=== PATIENT | male | born 1955 | race Caucasian/White ===

== ENCOUNTER 2016-10-17 08:23 | Outpatient (CLI) | payer OTHER | END 2016-10-17 08:24 | disposition home or self-care (01) | DX: Z12.5 Encounter for screening for malignant neoplasm of prostate (principal); I10 Essential (primary) hypertension; E11.9 Type 2 diabetes mellitus without complications; E78.5 Hyperlipidemia, unspecified; E66.9 Obesity, unspecified; R60.9 Edema, unspecified; E88.81 Metabolic syndrome and other insulin resistance ==

== ENCOUNTER 2017-06-22 09:43 | Outpatient (CLI) | payer OTHER ==
[2017-06-22 12:26] LABS: ALBUMIN/GLOBULIN RATIO 1.3 (1.0-2.2); BILIRUBIN,TOTAL 0.8 mg/dL (0.2-1.0); BUN - BLOOD UREA NITROGEN 16 mg/dL (6-20); CARBON DIOXIDE - CO2 27 mmol/L (21-32); CHLORIDE 104 mmol/L (101-111); CHOLESTEROL 131 mg/dL; GFR - MDRD 76 (>89); GLUCOSE 103 mg/dL (70-100); HDL CHOLESTEROL 43 mg/dL; LDL/HDL RATIO 1.5 (<3.6); POTASSIUM 3.7 mmol/L (3.5-5.0); SODIUM 141 mmol/L (135-145); TOTAL PROTEIN 7.4 g/dL (6.7-8.2); TRIGLYCERIDES 118 mg/dL; VLDL CHOLESTEROL 24 mg/dL
[2017-06-22 12:58] LABS: HEMOGLOBIN A1C 0.6 g/dL
== END 2017-06-22 09:44 | disposition home or self-care (01) ==
LOC: LAB.R 09:43
PROVIDERS: ATTEND Family Medicine
DX: Z53.9 Procedure and treatment not carried out, unspecified reason (principal)
CPT/HCPCS: 36415; 80053; 80061; 82043; 83036; 84443

== ENCOUNTER 2017-06-22 11:21 | Outpatient (CLI) | payer OTHER | END 2017-06-22 11:22 | disposition home or self-care (01) | LOC: LAB 11:21 | PROVIDERS: ATTEND Family Medicine | DX: E66.9 Obesity, unspecified (principal); R60.9 Edema, unspecified; E78.5 Hyperlipidemia, unspecified; I10 Essential (primary) hypertension; E11.9 Type 2 diabetes mellitus without complications | CPT/HCPCS: 36415; 80053; 80061; 82043; 83036; 84443 ==

== ENCOUNTER 2018-02-03 08:00 | Outpatient (CLI) | END 2018-02-03 08:01 | disposition home or self-care (01) ==

== ENCOUNTER 2018-03-15 12:57 | Outpatient (CLI) | payer OTHER ==
[2018-03-15 13:15] LABS: BASOPHILS % (AUTO) 0.5 %; EOSINOPHILS # (AUTO) 0.1 10^3/uL (0.0-0.7); EOSINOPHILS % (AUTO) 2.7 %; HGB - HEMOGLOBIN 13.7 g/dL (14.0-18.0); LYMPHOCYTES # (AUTO) 2.1 10^3/uL (1.5-3.5); MEAN CORPUSCULAR HEMOGLOBIN 28.4 pg (27.0-31.0); MEAN CORPUSCULAR VOLUME 86.1 fL (80.0-94.0); MONOCYTES # (AUTO) 0.5 10^3/uL (0.0-1.0); MONOCYTES % (AUTO) 10.1 %; NEUTROPHILS # (AUTO) 2.5 10^3/uL (1.5-6.6); NEUTROPHILS % (AUTO) 47.7 %; PLT - PLATELET COUNT 177 10^3/uL (130-450); RED BLOOD COUNT 4.81 10^6/uL (4.70-6.10); WHITE BLOOD COUNT 5.3 x10^3/uL (4.8-10.8)
[2018-03-15 13:29] LABS: HB2 TOTAL 15.2 g/dL; HEMOGLOBIN A1C 0.66 g/dL; HEMOGLOBIN A1C % 6.1 % (4.6-6.2)
[2018-03-15 14:55] LABS: ALBUMIN 3.9 g/dL (3.2-5.5); ALBUMIN/GLOBULIN RATIO 1.2 (1.0-2.2); ALKALINE PHOSPHATASE 68 IU/L (42-121); ALT ALANINE AMINOTRANSFERASE 46 IU/L (10-60); AST ASPARTATE AMINOTRANSFERASE 41 IU/L (10-42); BUN - BLOOD UREA NITROGEN 15 mg/dL (6-20); CARBON DIOXIDE - CO2 31 mmol/L (21-32); CHLORIDE 100 mmol/L (101-111); CHOL/HDL RATIO 3.4 (<5.0); CHOLESTEROL 114 mg/dL; CREATININE 0.9 mg/dL (0.6-1.2); GFR - MDRD 86 (>89); GLUCOSE 109 mg/dL (70-100); HDL CHOLESTEROL 34 mg/dL; LDL CHOLESTEROL,CALCULATED 53 mg/dL; LDL/HDL RATIO 1.6 (<3.6); SODIUM 139 mmol/L (135-145); TOTAL PROTEIN 7.2 g/dL (6.7-8.2); VLDL CHOLESTEROL 27 mg/dL
== END 2018-03-15 12:58 | disposition home or self-care (01) ==
LOC: LAB 12:57
PROVIDERS: ATTEND Family Medicine
DX: I87.2 Venous insufficiency (chronic) (peripheral) (principal); R60.9 Edema, unspecified; I10 Essential (primary) hypertension
CPT/HCPCS: 36415; 80053; 80061; 82043; 83036; 83721; 84443; 85025

== ENCOUNTER 2018-03-29 13:54 | Outpatient (CLI) | payer OTHER ==
[2018-03-29 14:18] LABS: CALCIUM 9.2 mg/dL (8.5-10.3)
== END 2018-03-29 13:55 | disposition home or self-care (01) ==
LOC: LAB 13:54
PROVIDERS: ATTEND Family Medicine
DX: E87.6 Hypokalemia (principal)
CPT/HCPCS: 36415; 80048

== ENCOUNTER 2019-01-08 08:00 | Outpatient (CLI) | payer OTHER ==
[2019-01-08 12:53] LABS: BASOPHILS % (AUTO) 0.1 %; EOSINOPHILS # (AUTO) 0.2 10^3/uL (0.0-0.7); HGB - HEMOGLOBIN 13.2 g/dL (14.0-18.0); LYMPHOCYTES % (AUTO) 37.4 %; MEAN CORPUSCULAR HEMOGLOBIN 28.2 pg (27.0-31.0); MEAN CORPUSCULAR HGB CONC 32.5 g/dL (32.0-36.0); MEAN CORPUSCULAR VOLUME 86.9 fL (80.0-94.0); MONOCYTES # (AUTO) 0.6 10^3/uL (0.0-1.0); MONOCYTES % (AUTO) 10.2 %; NEUTROPHILS # (AUTO) 2.7 10^3/uL (1.5-6.6); NEUTROPHILS % (AUTO) 49.3 %; PLT - PLATELET COUNT 194 10^3/uL (130-450); RED BLOOD COUNT 4.67 10^6/uL (4.70-6.10); RED CELL DISTRIBUTION WIDTH 14.4 % (12.0-15.0); WHITE BLOOD COUNT 5.4 x10^3/uL (4.8-10.8)
[2019-01-08 13:07] LABS: HB2 TOTAL 14.2 g/dL; HEMOGLOBIN A1C 0.71 g/dL; HEMOGLOBIN A1C % 6.7 % (4.6-6.2)
[2019-01-08 13:09] LABS: ALBUMIN 3.9 g/dL (3.2-5.5); ALBUMIN/GLOBULIN RATIO 1.2 (1.0-2.2); BILIRUBIN,TOTAL 0.6 mg/dL (0.2-1.0); CALCIUM 9.2 mg/dL (8.5-10.3); TOTAL PROTEIN 7.2 g/dL (6.7-8.2)
== END 2019-01-08 23:59 | disposition home or self-care (01) ==
LOC: LAB.WCP 08:00
PROVIDERS: ATTEND Family Medicine
DX: I10 Essential (primary) hypertension (principal); E11.9 Type 2 diabetes mellitus without complications
CPT/HCPCS: 36415; 80053; 83036; 85025

== ENCOUNTER 2019-01-08 16:59 | Outpatient (CLI) | payer OTHER ==
--- NOTE | 2019-01-09 10:26 | XRAY Report ---
Reason: CHEST WALL PAIN Procedure Date: 01/08/2019 Accession Number: [id number] / [id number] Procedure: XR - Chest 2 View X-Ray CPT Code: 72024 FULL RESULT: EXAM: CHEST RADIOGRAPHY EXAM DATE: 01/08/2019 05:38 PM. CLINICAL HISTORY: CHEST WALL PAIN. COMPARISON: XR CHEST PA AND LAT 05/29/2009 3:29 PM. TECHNIQUE: 2 views. FINDINGS: Lungs/Pleura: No focal opacities evident. No pleural effusion. No pneumothorax. Normal volumes. Mediastinum: Heart and mediastinal contours are unremarkable. Other: None. IMPRESSION: No focal consolidation. RADIA
== END 2019-01-08 17:00 | disposition home or self-care (01) ==
LOC: DI 16:59
PROVIDERS: ATTEND Family Medicine
DX: R07.89 Other chest pain (principal); I10 Essential (primary) hypertension; E11.9 Type 2 diabetes mellitus without complications
CPT/HCPCS: 36415; 71046; 80053; 83036; 85025

== ENCOUNTER 2019-02-25 13:46 | Outpatient (CLI) | payer OTHER ==
--- NOTE | 2019-02-25 14:30 | Mammography Report ---
Reason: BILAT BREAST TENDERNESS Procedure Date: 02/25/2019 Accession Number: [id number] / [id number] Procedure: SHYAM - Diagnostic Dig Bilat CPT Code: FULL RESULT: EXAM: Diagnostic Dig Bilat DATE: 02/25/2019 2:25 PM CLINICAL HISTORY: Bilateral breast tenderness. Recent initiation and subsequent discontinuation of spironolactone therapy. Patient symptoms have been improving since discontinuation. TECHNIQUE: (B) - Bilateral CC and MLO views were obtained. A left laterally exaggerated CC views obtained. COMPARISON: 04/17/2013. PARENCHYMAL PATTERN: (A) - The breast(s) demonstrate(s) scattered fibroglandular densities. FINDINGS: Compared to 2012, there is increased bilateral normal-appearing breast tissue. There are no suspicious masses, calcifications, or areas of distortion. IMPRESSION: Benign findings. BI-RADS category 2. RECOMMENDATION: (CLIN) - Clinical follow-up for symptoms is recommended. BI-RADS CATEGORY: (2) - Benign Findings. STANDARD QUALIFYING STATEMENTS: 1. This examination was not reviewed with the aid of Computer-Aided Detection (CAD). 2. A negative or benign imaging report should not preclude biopsy if clinically suspicious findings are present. 3. Dense breasts may obscure an underlying neoplasm. 4. This examination was reviewed without the aid of 3D breast imaging (tomosynthesis).
== END 2019-02-25 13:47 | disposition home or self-care (01) ==
LOC: DI 13:46
PROVIDERS: ATTEND Family Medicine
DX: N64.4 Mastodynia (principal)
CPT/HCPCS: 77066

== ENCOUNTER 2019-03-17 08:00 | Outpatient (CLI) | payer OTHER ==
[2019-03-17 13:27] LABS: ALBUMIN 3.7 g/dL (3.2-5.5); ALBUMIN/GLOBULIN RATIO 1.1 (1.0-2.2); BILIRUBIN,TOTAL 0.5 mg/dL (0.2-1.0); CREATININE 0.9 mg/dL (0.6-1.2); TOTAL PROTEIN 7.2 g/dL (6.7-8.2)
== END 2019-03-17 23:59 | disposition home or self-care (01) ==
LOC: LAB.WCP 08:00
PROVIDERS: ATTEND Family Medicine
DX: E11.9 Type 2 diabetes mellitus without complications (principal); E87.6 Hypokalemia; R06.09 Other forms of dyspnea; I10 Essential (primary) hypertension
CPT/HCPCS: 36415; 80053; 83880; 84443

== ENCOUNTER 2020-08-04 10:38 | Outpatient (CLI) | payer OTHER ==
[2020-08-04 14:26] LABS: BASOPHILS % (AUTO) 0.6 %; EOSINOPHILS # (AUTO) 0.2 10^3/uL (0.0-0.7); EOSINOPHILS % (AUTO) 3.2 %; HCT - HEMATOCRIT 42.6 % (42.0-52.0); LYMPHOCYTES # (AUTO) 2.3 10^3/uL (1.5-3.5); LYMPHOCYTES % (AUTO) 37.5 %; MEAN CORPUSCULAR HEMOGLOBIN 26.9 pg (27.0-31.0); MEAN CORPUSCULAR HGB CONC 30.5 g/dL (32.0-36.0); MEAN PLATELET VOLUME 11.6 fL (7.4-11.4); MONOCYTES # (AUTO) 0.8 10^3/uL (0.0-1.0); MONOCYTES % (AUTO) 12.1 %; NEUTROPHILS # (AUTO) 2.9 10^3/uL (1.5-6.6); NEUTROPHILS % (AUTO) 46.4 %; PLT - PLATELET COUNT 213 10^3/uL (130-450); RED BLOOD COUNT 4.84 10^6/uL (4.70-6.10); WHITE BLOOD COUNT 6.2 x10^3/uL (4.8-10.8)
[2020-08-04 14:39] LABS: ALBUMIN/GLOBULIN RATIO 1.1 (1.0-2.2); ALKALINE PHOSPHATASE 59 IU/L (42-121); ALT ALANINE AMINOTRANSFERASE 25 IU/L (10-60); AST ASPARTATE AMINOTRANSFERASE 28 IU/L (10-42); BILIRUBIN,TOTAL 0.7 mg/dL (0.2-1.0); BUN - BLOOD UREA NITROGEN 19 mg/dL (6-20); CALCIUM 8.9 mg/dL (8.5-10.3); CARBON DIOXIDE - CO2 30 mmol/L (21-32); CHLORIDE 97 mmol/L (101-111); CHOLESTEROL 112 mg/dL; CREATININE 0.9 mg/dL (0.6-1.2); GFR - MDRD 85 (>89); GLUCOSE 88 mg/dL (70-100); HDL CHOLESTEROL 37 mg/dL; LDL CHOLESTEROL,CALCULATED 55 mg/dL; LDL/HDL RATIO 1.5 (<3.6); POTASSIUM 2.9 mmol/L (3.5-5.0); SODIUM 137 mmol/L (135-145); TOTAL PROTEIN 7.7 g/dL (6.7-8.2); TRIGLYCERIDES 98 mg/dL; VLDL CHOLESTEROL 20 mg/dL
[2020-08-04 14:52] LABS: CREATININE,URINE 32.5 mg/dL; THYROID STIMULATING HORMONE 2.72 uIU/mL (0.34-5.60)
[2020-08-04 14:56] LABS: ESTIMATED AVERAGE GLUCOSE 117 mg/dL (70-100); HEMOGLOBIN A1c% 5.7 % (4.27-6.07); MICROALBUMIN,URINE < 0.2 mg/dL (0-300.0)
== END 2020-08-04 23:59 | disposition home or self-care (01) ==
LOC: LAB.WCP 10:38
PROVIDERS: ATTEND Internal Medicine
DX: E87.6 Hypokalemia (principal); R60.9 Edema, unspecified; I10 Essential (primary) hypertension; E78.5 Hyperlipidemia, unspecified; E11.9 Type 2 diabetes mellitus without complications; Z12.5 Encounter for screening for malignant neoplasm of prostate; Z13.29 Encounter for screening for other suspected endocrine disorder
CPT/HCPCS: 36415; 80053; 80061; 82043; 82570; 83036; 83721; 84153; 84443; 85025

== ENCOUNTER 2020-11-10 08:00 | Outpatient (CLI) | payer OTHER ==
[2020-11-10 17:51] LABS: CALCIUM 9.1 mg/dL (8.5-10.3); CREATININE 0.9 mg/dL (0.6-1.2); POTASSIUM 3.5 mmol/L (3.5-5.0)
[2020-11-10 20:46] LABS: ESTIMATED AVERAGE GLUCOSE 128 mg/dL (70-100); HEMOGLOBIN A1c% 6.1 % (4.27-6.07)
== END 2020-11-10 23:59 | disposition home or self-care (01) ==
LOC: LAB.WCP 08:00
PROVIDERS: ATTEND Internal Medicine
DX: E11.628 Type 2 diabetes mellitus with other skin complications (principal)
CPT/HCPCS: 36415; 80048; 83036

== ENCOUNTER 2021-04-13 01:42 | Emergency (ER) | payer OTHER ==
[2021-04-13] MEDS ORDERED: SODIUM CHLORIDE 0.9% IV STA (02:16)
[2021-04-13 02:25] LABS: BASOPHILS % (AUTO) 0.3 %; EOSINOPHILS % (AUTO) 0.1 %; HCT - HEMATOCRIT 39.4 % (42.0-52.0); HGB - HEMOGLOBIN 12.5 g/dL (14.0-18.0); LYMPHOCYTES # (AUTO) 0.5 10^3/uL (1.5-3.5); LYMPHOCYTES % (AUTO) 4.5 %; MEAN CORPUSCULAR HEMOGLOBIN 27.7 pg (27.0-31.0); MEAN CORPUSCULAR HGB CONC 31.7 g/dL (32.0-36.0); MEAN CORPUSCULAR VOLUME 87.2 fL (80.0-94.0); MEAN PLATELET VOLUME 10.2 fL (7.4-11.4); MONOCYTES # (AUTO) 0.5 10^3/uL (0.0-1.0); MONOCYTES % (AUTO) 4.7 %; NEUTROPHILS # (AUTO) 9.3 10^3/uL (1.5-6.6); NEUTROPHILS % (AUTO) 89.5 %; PLT - PLATELET COUNT 259 10^3/uL (130-450); RED BLOOD COUNT 4.52 10^6/uL (4.70-6.10); RED CELL DISTRIBUTION WIDTH 13.7 % (12.0-15.0); WHITE BLOOD COUNT 10.4 x10^3/uL (4.8-10.8)
[2021-04-13 02:34] LABS: ALBUMIN 3.9 g/dL (3.2-5.5); ALBUMIN/GLOBULIN RATIO 1.1 (1.0-2.2); BILIRUBIN,TOTAL 0.8 mg/dL (0.2-1.0); CALCIUM 9.2 mg/dL (8.5-10.3); CREATININE 1.2 mg/dL (0.6-1.2); POTASSIUM 3.6 mmol/L (3.5-5.0); TOTAL PROTEIN 7.4 g/dL (6.7-8.2)
[2021-04-13] MEDS ORDERED: IBUPROFEN 600 MG TABLET PO STA (02:55)
[2021-04-13] MEDS ORDERED: ACETAMINOPHEN 325 MG TABLET PO STA (02:56)
[2021-04-13 03:33] LABS: BILIRUBIN,URINE NEGATIVE (NEGATIVE); GLUCOSE, URINE (UA) NEGATIVE (NEGATIVE); KETONES,URINE (UA) NEGATIVE (NEGATIVE); LEUKOCYTE ESTERASE, URINE NEGATIVE (NEGATIVE); NITRITE,URINE NEGATIVE (NEGATIVE); OCCULT BLOOD,URINE TRACE-LYSE (NEGATIVE); PROTEIN,URINE NEGATIVE (NEGATIVE); UROBILINOGEN,URINE 0.2 (NORMAL) E.U./dL (NORMAL)
[2021-04-13 03:34] LABS: CLARITY,URINE CLEAR (CLEAR)
[2021-04-13 03:39] LABS: BACTERIA,URINE None Seen /HPF (None Seen); RBC,URINE 0-5 /HPF (0-5); SQUAMOUS EPITHELIAL CELL,UR RARE Squamous (<= Few); WBC,URINE 0-3 /HPF (0-3)
[2021-04-13 03:57] LABS: CORONAVIRUS 229E-RESP PCR NOT DETECTED; CORONAVIRUS HKU1-RESP PCR NOT DETECTED; CORONAVIRUS NL63-RESP PCR NOT DETECTED; CORONAVIRUS OC43-RESP PCR NOT DETECTED; HUMAN METAPNEUMOVIRUS NOT DETECTED; INFLUENZA A- RESP PCR PANEL NOT DETECTED; INFLUENZA B - RESP PCR PANEL NOT DETECTED; PARAINFLUENZA VIRUS 1 NOT DETECTED; PARAINFLUENZA VIRUS 2 NOT DETECTED; PARAINFLUENZA VIRUS 3 NOT DETECTED; PARAINFLUENZA VIRUS 4 NOT DETECTED; RHINOVIRUS/ENTEROVIRUS NOT DETECTED; SARS-CoV-2 -RESP PCR PANEL NOT DETECTED
[2021-04-13 03:58] LABS: B. PARAPERTUSSIS- RESP PCR PAN NOT DETECTED; B. PERTUSSIS- RESP PCR PANEL NOT DETECTED; C. PNEUMONIAE- RESP PCR PANEL NOT DETECTED; M. PNEUMONIAE- RESP PCR PANEL NOT DETECTED; RSV- RESP PCR PANEL NOT DETECTED
--- NOTE | 2021-04-13 05:05 | ED Physician Documentation ---
History of Present Illness - Stated complaint Stated Complaint: FEVER,AMS - Chief complaint Chief Complaint: Ext Problem - History obtained from History obtained from: Patient - Additonal information Additional information: Pt comes to the ED with chief complaint of fever approximately 104 at home. He states he has had chills and malaise for the past day. No other specific sx. No cough, SOB, CP, abd pain, nausea, vomiting, or diarrhea. No back pain or dysuria. Pt has a h/o lymphedema in both legs, but has not noticed cellulitis. Pt's thought he seemed a little confused at home while febrile. No sick contacts. Pt has had both Pfizer shots. Review of Systems Ten Systems: 10 systems reviewed and negative Constitutional: reports: Fever, Chills Eyes: reports: Reviewed and negative Ears: reports: Reviewed and negative Nose: reports: Reviewed and negative Throat: reports: Reviewed and negative Cardiac: reports: Reviewed and negative Respiratory: reports: Reviewed and negative GI: reports: Reviewed and negative : reports: Reviewed and negative Skin: reports: Reviewed and negative Musculoskeletal: reports: Reviewed and negative Neurologic: reports: Reviewed and negative Psychiatric: reports: Reviewed and negative Endocrine: reports: Reviewed and negative Immunocompromised: reports: Reviewed and negative PD PAST MEDICAL HISTORY - Past Medical History Past Medical History: Yes Cardiovascular: Hypertension, High cholesterol Endocrine/Autoimmune: Type 2 diabetes - Past Surgical History Past Surgical History: Yes General: Cholecystectomy, Appendectomy, Hiatal hernia repair HEENT: Cataracts, Detached retina repair, Tonsil/Adenoidectomy - Present Medications Home Medications: Ambulatory Orders Medication Instructions Recorded Confirmed Home Medications Unobtainable 04/13/21 04/13/21 [HOME MEDICATIONS UNOBTAINABLE] - Allergies Allergies/Adverse Reactions: Allergies Allergy/AdvReac Type Severity Reaction Status Date / Time No Known Drug Allergies Allergy Verified 04/13/21 18:40 - Social History Does the pt smoke?: No Smoking Status: Never smoker Does the pt drink ETOH?: No - Immunizations Immunizations are current?: No Immunizations: TDAP >10years/unknown PD ED PE NORMAL - Vitals Vital signs reviewed: Yes - General General: Alert and oriented X 3, No acute distress, Other (obese) - HEENT HEENT: Atraumatic, PERRL, EOMI, Moist mucous membranes - Neck Neck: Supple, no meningeal sign - Cardiac Cardiac: RRR, No murmur, Strong equal pulses - Respiratory Respiratory: No respiratory distress, Clear bilaterally - Abdomen Abdomen: Soft, Non tender, Other (obese) - Back Back: No CVA TTP - Derm Derm: Normal color, Warm and dry, No rash, Other (Pt has mild, chronic-appearing erythema of distal lower legs. No intense erythema, streaking, or fluctuance. No purulent drainage from wounds.) - Extremities Extremities: No deformity, Other (Severely enlarged legs bilaterally, c/w lymphedema.) - Neuro Neuro: Alert and oriented X 3, lock operator 2-12 intact, No motor deficit, No sensory deficit, Normal speech - Psych Psych: Normal mood, Normal affect Results - Vitals Vitals: Vital Signs - 24 hr 04/13/21 04/13/21 04/13/21 01:51 02:30 03:15 Temperature 39.5 C H 39.6 C H 39.6 C H Heart Rate 85 89 86 Respiratory 18 30 H Rate Blood Pressure 138/70 H 109/89 H 117/66 O2 Saturation 95 99 97 04/13/21 04/13/21 04/13/21 03:30 03:40 03:57 Temperature 37.9 C 39.3 C H 38.2 C H Heart Rate 86 82 78 Respiratory 24 27 H 24 Rate Blood Pressure 117/66 111/56 L 111/56 L O2 Saturation 95 95 94 04/13/21 04/13/21 04:09 05:25 Temperature 38.2 C H 37.3 C Heart Rate 78 78 Respiratory 26 H 20 Rate Blood Pressure 104/63 106/63 O2 Saturation 97 99 Oxygen O2 Source Room air - Labs Labs: Microbiology 04/13/21 02:10 Blood Culture - Preliminary Blood 04/13/21 02:45 Blood Culture - Preliminary Blood 04/13/21 02:10 Blood Culture (PCR) - Final Blood Laboratory Tests 04/13/21 04/13/21 04/13/21 02:10 02:10 02:10 WBC 10.4 RBC 4.52 L Hgb 12.5 L Hct 39.4 L MCV 87.2 MCH 27.7 MCHC 31.7 L RDW 13.7 Plt Count 259 MPV 10.2 Neut # (Auto) 9.3 H Lymph # (Auto) 0.5 L [place] # (Auto) 0.5 Eos # (Auto) 0.0 Baso # (Auto) 0.0 Absolute Nucleated RBC 0.00 Nucleated RBC % 0.0 Sodium 138 Potassium 3.6 Chloride 102 Carbon Dioxide 25 Anion Gap 11.0 BUN 16 Creatinine 1.2 Estimated GFR (MDRD) 61 L Glucose 127 H Lactic Acid 1.7 Calcium 9.2 Total Bilirubin 0.8 AST 25 ALT 19 Alkaline Phosphatase 53 Total Protein 7.4 Albumin 3.9 Globulin 3.5 Albumin/Globulin Ratio 1.1 Urine Color Urine Clarity Urine pH Ur Specific [place] Urine Protein Urine Glucose (UA) Urine Ketones Urine Occult Blood Urine Nitrite Urine Bilirubin Urine Urobilinogen Ur Leukocyte Esterase Urine RBC Urine WBC Ur Squamous Epith Cells Urine Bacteria Urine Culture Comments Nasal Adenovirus (PCR) Nasal B. parapertussis DNA (PCR) Nasal Coronavir 229E PCR Nasal Coronavir HKU1 PCR Nasal Coronavir NL63 PCR Nasal Coronavir OC43 PCR Nasal Enterovir/Rhinovir PCR Nasal Influenza B PCR Nasal Influenza A PCR Nasal Parainfluen 1 PCR Nasal Parainfluen 2 PCR Nasal Parainfluen 3 PCR Nasal Parainfluen 4 PCR Nasal RSV (PCR) Nasal B.pertussis DNA PCR Nasal C.pneumoniae (PCR) Foreign Human Metapneumo PCR Nasal M.pneumoniae (PCR) Nasal SARS-CoV-2 (PCR) 04/13/21 04/13/21 02:59 03:30 WBC RBC Hgb Hct MCV MCH MCHC RDW Plt Count MPV Neut # (Auto) Lymph # (Auto) [place] # (Auto) Eos # (Auto) Baso # (Auto) Absolute Nucleated RBC Nucleated RBC % Sodium Potassium Chloride Carbon Dioxide Anion Gap BUN Creatinine Estimated GFR (MDRD) Glucose Lactic Acid Calcium Total Bilirubin AST ALT Alkaline Phosphatase Total Protein Albumin Globulin Albumin/Globulin Ratio Urine Color YELLOW Urine Clarity CLEAR Urine pH 6.0 Ur Specific [place] 1.015 Urine Protein NEGATIVE Urine Glucose (UA) NEGATIVE Urine Ketones NEGATIVE Urine Occult Blood TRACE-LYSE Urine Nitrite NEGATIVE Urine Bilirubin NEGATIVE Urine Urobilinogen 0.2 (NORMAL) Ur Leukocyte Esterase NEGATIVE Urine RBC 0-5 Urine WBC 0-3 Ur Squamous Epith Cells RARE Squamous Urine Bacteria None Seen Urine Culture Comments NOT INDICATED Nasal Adenovirus (PCR) NOT DETECTED Nasal B. parapertussis DNA (PCR) NOT DETECTED Nasal Coronavir 229E PCR NOT DETECTED Nasal Coronavir HKU1 PCR NOT DETECTED Nasal Coronavir NL63 PCR NOT DETECTED Nasal Coronavir OC43 PCR NOT DETECTED Nasal Enterovir/Rhinovir PCR NOT DETECTED Nasal Influenza B PCR NOT DETECTED Nasal Influenza A PCR NOT DETECTED Nasal Parainfluen 1 PCR NOT DETECTED Nasal Parainfluen 2 PCR NOT DETECTED Nasal Parainfluen 3 PCR NOT DETECTED Nasal Parainfluen 4 PCR NOT DETECTED Nasal RSV (PCR) NOT DETECTED Nasal B.pertussis DNA PCR NOT DETECTED Nasal C.pneumoniae (PCR) NOT DETECTED Foreign Human Metapneumo PCR NOT DETECTED Nasal M.pneumoniae (PCR) NOT DETECTED Nasal SARS-CoV-2 (PCR) NOT DETECTED - Rads (name of study) CXR Radiology: Final report received, EMP read indepedently, See rad report (neg) PD MEDICAL DECISION MAKING - ED course Complexity details: reviewed results, re-evaluated patient, considered differential, d/w patient ED course: Pt did not appear toxic in the emergency dept, but did have a significant fever. As such, he was worked up extensively, with labs, including lactic acid level, blood cultures, UA, CXR, and respiratory PCR panel. He was treated with a 30 cc/kg bolus, as well as ibuprofen and Tylenol. His WBC count was normal, as was lactate level. UA, CXR and PCR panel were also negative. Pt did not have evidence of cellulitis or osteomyelitis associated with his lymphedema. He looked much better after fluids and defervescence, and reported feeling much better. I d/w pt that extensive work-up has thus far been negative, but that we do still have blood cultures pending, and if these are positive, he will need to be treated with abx. Given the normal WBC count and lactate levels, as well as the lack of other focal findings, I feel the pt can be discharged home for now. We have discussed the usual indications for return. Departure - Departure Disposition: 01 Home, Self Care Clinical Impression: Acute febrile illness Condition: Stable Instructions: ED Fever Unconf Cause Comments: You have been treated with ibuprofen and Tylenol for your fever, as well as 2 bags of IV fluid. You are doing much better than when you initially came in. You have also been worked up with extensive testing, and thus far, your testing has looked good. You have a normal white blood cell count and no evidence of infection in your lungs or your urine. Your viral panel, which includes Covid and influenza, among a number of other viruses, is completely negative. There are many viruses that cannot be tested for and it is possible that you have 1 of these. We have also collected blood cultures to see if any bacteria grows out of your blood, and these are pending at this time. They will be back this evening and if positive, you will be called at home. We have checked a blood test that looks for sepsis, which is the spread of infection throughout the body and a destructive chemical release by the body in response to this. The lab for sepsis was normal, indicating that you are not at this time septic. While at home working through the illness, you should drink at least 8 glasses of water per day if not more to make up for the fluid you are losing through sweating and through increased breathing while you are sick. You should also take ibuprofen 600 mg every 6 hours and Tylenol/acetaminophen 650 mg every 4 hours, as needed for fever. If you feel like you are getting worse, not better, over the next few days, you may return for reevaluation. Discharge Date/Time: 04/13/21 05:35
[2021-04-13 05:35] VITALS: BP 106/63
--- NOTE | 2021-04-13 08:28 | XRAY Report ---
PROCEDURE: Chest 1 View X-Ray INDICATIONS: chest pain TECHNIQUE: One view of the chest was acquired. COMPARISON: 01/08/2019. FINDINGS: Surgical changes and devices: None. Lungs and pleura: No pleural effusions or pneumothorax. Lungs are clear. Mediastinum: Mediastinal contours appear normal. Heart size is normal. Bones and chest wall: No suspicious bony lesions. Overlying soft tissues appear unremarkable. IMPRESSION: No acute cardiopulmonary disease process. Reviewed by: Rosaura Trujillo MD, PhD on 04/13/2021 8:27 AM PDT Approved by: Rosaura Trujillo MD, PhD on 04/13/2021 8:27 AM PDT Station ID: [id number]
== END 2021-04-13 05:35 | disposition home or self-care (01) ==
LOC: ED 01:42
DX: R50.9 Fever, unspecified (principal); I10 Essential (primary) hypertension; E11.9 Type 2 diabetes mellitus without complications; Z20.822 Contact with and (suspected) exposure to COVID-19
CPT/HCPCS: 0202U; 36415; 71045; 80053; 81001; 83605; 85025; 87040; 87077; 87150; 87181; 96360; 96361; 99283; 99284; A9270; 87086

== ENCOUNTER 2021-04-13 18:36 | Inpatient (IN) | payer OTHER ==
[2021-04-13 19:44] LABS: BASOPHILS % (AUTO) 0.4 %; EOSINOPHILS # (AUTO) 0.1 10^3/uL (0.0-0.7); EOSINOPHILS % (AUTO) 0.8 %; HCT - HEMATOCRIT 33.4 % (42.0-52.0); HGB - HEMOGLOBIN 10.6 g/dL (14.0-18.0); LYMPHOCYTES # (AUTO) 0.9 10^3/uL (1.5-3.5); LYMPHOCYTES % (AUTO) 10.7 %; MEAN CORPUSCULAR HGB CONC 31.7 g/dL (32.0-36.0); MEAN CORPUSCULAR VOLUME 88.4 fL (80.0-94.0); MEAN PLATELET VOLUME 9.7 fL (7.4-11.4); MONOCYTES # (AUTO) 0.4 10^3/uL (0.0-1.0); MONOCYTES % (AUTO) 5.1 %; NEUTROPHILS # (AUTO) 6.8 10^3/uL (1.5-6.6); NEUTROPHILS % (AUTO) 82.5 %; PLT - PLATELET COUNT 185 10^3/uL (130-450); RED BLOOD COUNT 3.78 10^6/uL (4.70-6.10); RED CELL DISTRIBUTION WIDTH 14.1 % (12.0-15.0); WHITE BLOOD COUNT 8.3 x10^3/uL (4.8-10.8)
[2021-04-13 19:56] LABS: ALBUMIN 3.3 g/dL (3.2-5.5); CALCIUM 8.3 mg/dL (8.5-10.3); POTASSIUM 3.3 mmol/L (3.5-5.0); TOTAL PROTEIN 6.5 g/dL (6.7-8.2)
--- NOTE | 2021-04-13 20:28 | ED Physician Documentation ---
History of Present Illness - Stated complaint Stated Complaint: FEVER, RECHECK - Chief complaint Chief Complaint: General - Additonal information Additional information: 65-year-old male was to return to the emergency department for evaluation of bacteremia. he was seen here yesterday after reported an acute onset of fever up to 104 at home. He presented to the emergency department and had an extensive work-up that included labs, lactic acid blood cultures, urine chest x-ray and a respiratory PCR panel. Lactate was negative. White cell count was not elevated. Urine showed no signs of infection. He did receive a 30 cc/kg bolus of fluid as well as Tylenol and ibuprofen. However today blood cultures have returned positive and he was advised to return here. Since being discharged home he reports that he is felt fatigued but has not had any further fever. This gentleman does have significant lymphedema of his lower extremities but no signs of cellulitis. Review of Systems Constitutional: reports: Fever Eyes: reports: Reviewed and negative Ears: reports: Reviewed and negative Nose: reports: Reviewed and negative Throat: reports: Reviewed and negative Cardiac: reports: Reviewed and negative Respiratory: reports: Reviewed and negative GI: reports: Reviewed and negative : reports: Reviewed and negative Skin: reports: Other (ulceration right posterior calf) Musculoskeletal: reports: Reviewed and negative PD PAST MEDICAL HISTORY - Past Medical History Cardiovascular: Hypertension, High cholesterol Endocrine/Autoimmune: Type 2 diabetes - Past Surgical History Past Surgical History: Yes General: Cholecystectomy, Appendectomy, Hiatal hernia repair HEENT: Cataracts, Detached retina repair, Tonsil/Adenoidectomy - Present Medications Home Medications: Ambulatory Orders Medication Instructions Recorded Confirmed Dulaglutide [Trulicity] 3 mg IM PRN PRN 04/13/21 04/13/21 Eplerenone [Inspra] 25 mg PO DAILY 04/13/21 04/13/21 Furosemide [Lasix] 40 mg PO DAILY 04/13/21 04/13/21 Losartan [Cozaar] 50 mg PO DAILY 04/13/21 04/13/21 Metoprolol Succinate [Kapspargo 100 mg PO DAILY 04/13/21 04/13/21 Sprinkle] Rosuvastatin Calcium [Crestor] 20 mg PO DAILY 04/13/21 04/13/21 amLODIPine [Norvasc] 5 mg PO DAILY 04/13/21 04/13/21 cloNIDine 0.2 MG PATCH 1 patch TOP PRN PRN 04/13/21 04/13/21 [[id number]] metFORMIN [Glucophage] 500 mg PO DAILY 04/13/21 04/13/21 - Allergies Allergies/Adverse Reactions: Allergies Allergy/AdvReac Type Severity Reaction Status Date / Time No Known Drug Allergies Allergy Verified 04/13/21 18:40 - Social History Does the pt smoke?: No Smoking Status: Never smoker Does the pt drink ETOH?: No - Immunizations Immunizations are current?: No Immunizations: TDAP >10years/unknown - POLST Patient has POLST: No PD ED PE EXPANDED - General General: Alert, No acute distress - Neck Neck: Supple w/out meningeal sx. No: Adenopathy - Cardiac Cardiac: Regular Rate, Radial strong equal, Pedal strong equal. No: Murmur Present - Rectal Rectal: Normal Tone, Other (Multiple old hemorrhoids. There are a few superficial anal tears. Rectal tone is normal. Brown stool in vault. Unable to palpate the prostate) - Extremities Extremities: Pedal Pulses Present, Other (Significant lymphedema bilateral lower extremities. He has chronic skin changes hypertrophy of the skin anterior shins bilaterally. Right posterior calf with a 3 x 2 shallow ulceration with a yellow base. No significant surrounding erythema or induration suggestive of cellulitis) Results - Vitals Vitals: Vital Signs - 24 hr 04/13/21 18:40 Temperature 36.5 C Heart Rate 57 L Respiratory 16 Rate Blood Pressure 123/74 O2 Saturation 98 Oxygen O2 Source Room air - Labs Labs: Laboratory Tests 04/13/21 04/13/21 04/13/21 19:34 19:34 19:34 WBC 8.3 RBC 3.78 L Hgb 10.6 L Hct 33.4 L MCV 88.4 MCH 28.0 MCHC 31.7 L RDW 14.1 Plt Count 185 MPV 9.7 Neut # (Auto) 6.8 H Lymph # (Auto) 0.9 L [place] # (Auto) 0.4 Eos # (Auto) 0.1 Baso # (Auto) 0.0 Absolute Nucleated RBC 0.00 Nucleated RBC % 0.0 Sodium 136 Potassium 3.3 L Chloride 102 Carbon Dioxide 26 Anion Gap 8.0 BUN 16 Creatinine 1.0 Estimated GFR (MDRD) 75 L Glucose 104 H Lactic Acid 1.0 Calcium 8.3 L Total Bilirubin 1.0 AST 41 ALT 21 Alkaline Phosphatase 39 L Total Protein 6.5 L Albumin 3.3 Globulin 3.2 Albumin/Globulin Ratio 1.0 Prostate Specific Ag Free PSA % Free PSA Calc 04/13/21 19:34 WBC RBC Hgb Hct MCV MCH MCHC RDW Plt Count MPV Neut # (Auto) Lymph # (Auto) [place] # (Auto) Eos # (Auto) Baso # (Auto) Absolute Nucleated RBC Nucleated RBC % Sodium Potassium Chloride Carbon Dioxide Anion Gap BUN Creatinine Estimated GFR (MDRD) Glucose Lactic Acid Calcium Total Bilirubin AST ALT Alkaline Phosphatase Total Protein Albumin Globulin Albumin/Globulin Ratio Prostate Specific Ag 0.290 Free PSA 0.100 L % Free PSA Calc 34 PD MEDICAL DECISION MAKING - ED course Complexity details: reviewed old records, reviewed results, d/w patient, d/w pre owned sales consultant ED course: 65-year-old male return to the emergency department for evaluation of gram- negative bacteremia. He was seen in this emergency department yesterday for fever 104. He had negative chest x-ray, urine and lactate. White blood cell count was not elevated. He did receive 30 mils per kilogram of crystalloid yesterday. He had denied any cough or congestion. No reports of abdominal pain nausea vomiting or dysuria. Blood cultures have grown gram-negative bacilli yet on speciated. Since being discharged from the emergency department early this a.m. he has felt okay and denied any further fevers. Gram-negative bacilli bacteremia is not likely to be a contaminant. Source most likely would be intra-abdominal or urine. I have discussed this case with our hospitalist Dr. Ra jansen who has agreed to bring the patient in for further evaluation and treatment of the bacteremia. Likely he will require a CT of the abdomen. Blood cultures are pending. Be started on Levaquin. First dose initiated in the emergency department. Departure - Departure Disposition: ED Place in Observation Clinical Impression: Bacteremia Discharge Date/Time: 04/13/21 21:46
[2021-04-13] MEDS ORDERED: levoFLOXacin 250 MG TABLET PO STA (20:47)
[2021-04-13] MEDS ORDERED: oxyCODONE 5 MG TABLET PO PRN (20:49)
[2021-04-13] MEDS ORDERED: ONDANSETRON ODT 4 MG TABLET TL PRN (20:49)
[2021-04-13] MEDS ORDERED: ONDANSETRON 4 MG/2 ML VIAL IVP PRN (20:49)
--- NOTE | 2021-04-13 20:57 | HISTORY & PHYSICAL EXAMINATION ---
Chief Complaint - Chief Complaint Chief Complaint: bacteremia recall History of Present Illness - Admitted From Admitted From:: Home - History Obtained From Records Reviewed: [facility] and [facility] History obtained from: [facility] Exam Limitations: none - History of Present Illness HPI Comment/Other: This is a 65-year-old male who has a history of high blood pressure, hyperlipidemia, and diabetes that presented to the emergency room yesterday with fever to 104. For approximately 24 to 48 hours he has been feeling fatigued, having chills, no appetite. He denied any abdominal pain with this. No epigastric pain. No nausea, vomiting, diarrhea. He denies urgency, frequency, dysuria or hematuria. No flank pain. He denied cough, wheezing, shortness of breath. There were no ENT complaints. There is no sore throat, ear pain, eustachian tube dysfunction or rhinorrhea. He has had Covid vaccination with [employer]. He has chronic lymphedema. In the emergency room they documented a temperature to 39.5. A good blood pressure 138/70, 95% on room air. On physical examination he had a small skin breakdown over the back of his calf but certainly no severe cellulitis. He had severely enlarged legs with his lymphedema. After being in the ER, temperature sustained. Blood cultures were done. White cell count was normal. Hemoglobin was 12.5. Urinalysis was negative. And he was sent home after ibuprofen, Tylenol and 2 bags of IV fluid. He was feeling much better, and he was Covid negative. Since then, blood cultures have become positive. They were drawn at 2:10 in the morning and 2:45 in the morning and became positive at 4:40 in the afternoon. He was asked to return because of the positive blood cultures. In the emergency room continues to feel well. This evening's temperature is 36.5. He is 98% on room air. Blood pressure 123/74. He continues to have a negative review of systems. He states he feels so much better than yesterday. He's hungry since he hasn't eaten today and would like some food. He also wants to make sure we don't given him spironolactone for his legs bc it gives him gynecomastia. He asks what his options are for the lymphedema. As such, the patient has been placed in observation. We will start him on empiric gram-negative coverage. Try to discover the source of his bacteremia. He is criteria for admission is strictly the bacteremia and fever. History - Past Medical History Cardiovascular: reports: Hypertension, High cholesterol Respiratory: reports: Sleep apnea Neuro: reports: None Endocrine/Autoimmune: reports: Type 2 diabetes GI: reports: None : reports: Other (erectile dysfunction) Musculoskeletal: reports: Osteoarthritis (w bunions) Derm: reports: Other (urticaria January 2012, [place], eczema, groin intertrigo, leg impetigo) MRSA Hx?: Yes - Past Surgical History General: reports: Cholecystectomy, Appendectomy, Hiatal hernia repair, Colonoscopy (October 2008 and normal), Other (Umbilical hernia repair with mesh) Ortho: reports: Other (Right foot ganglion cyst, left bunionectomy) HEENT: reports: Cataracts, Detached retina repair, Tonsil/Adenoidectomy - Family & Social History Family History Comment/Other: Mother had high blood pressure and prediabetes, of massive skin infections of legs in her 90s in this hospital. Dad had high blood pressure, CT, and diabetes and at the age of 75. 2 brothers. Both have hypertension. 3 children. Son w VSD and repair. Daughter w melanoma on treatment right now. Son with HTN Living arrangement: At home Living Situation: With spouse/s.o. Social History Notes: He has never smoked. No history of alcohol abuse and never drinks. No history of recreational substance abuse. over 40 years to his first . Originally from [place] but was in the [place] for many decades. Traveled between [facility] and [place] for the [employer]. 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 He has been without work for about a year and a half and is still looking for work. - Substance History Use: Uses substance without health or social issues: NONE Abuse: Recurrent use of substance despite neg consequences: NONE Dependence: Experiences withdrawal or developed tolerances: NONE - POLST Patient has POLST: No POLST Status: Full Code Meds/Allgy - Home Medications Home Medications: Ambulatory Orders Medication Instructions Recorded Confirmed Dulaglutide [Trulicity] 3 mg IM PRN PRN 04/13/21 04/13/21 Eplerenone [Inspra] 25 mg PO DAILY 04/13/21 04/13/21 Furosemide [Lasix] 40 mg PO DAILY 04/13/21 04/13/21 Losartan [Cozaar] 50 mg PO DAILY 04/13/21 04/13/21 Metoprolol Succinate [Kapspargo 100 mg PO DAILY 04/13/21 04/13/21 Sprinkle] Rosuvastatin Calcium [Crestor] 20 mg PO DAILY 04/13/21 04/13/21 amLODIPine [Norvasc] 5 mg PO DAILY 04/13/21 04/13/21 cloNIDine 0.2 MG PATCH 1 patch TOP PRN PRN 04/13/21 04/13/21 [[id number]-9] metFORMIN [Glucophage] 500 mg PO DAILY 04/13/21 04/13/21 - Allergies Allergies/Adverse Reactions: Allergies Allergy/AdvReac Type Severity Reaction Status Date / Time No Known Drug Allergies Allergy Verified 04/13/21 18:40 Review of Systems - Musculoskeletal Musculoskeletal: reports: Other (Because of the massive leg swelling, he is relatively sedentary. Cannot really walk very far. Legs are always painful and swollen from thighs down. Has not been able to do lymphedema therapy because of Covid and he is leery of being exposed) - Integumentary Integumentary: reports: Other (Leg skin intermittently blisters. Gets intermittent pustular lesions. Sometimes gets yeast underneath his belly pannus.) - Endocrine Endocrine: reports: Other (Resolving gynecomastia now that his spironolactone has stopped) - Other Findings Other Findings: 12 point review of systems has been done and all negative. There are no pertinent positives. Prior Level of Functionality: Completely independent with activities of daily living. No use of durable medical equipment. But his legs constantly ache. Hard to get around. Exam - Vital Signs Reviewed Vital Signs: Yes Vital Signs: Vital Signs x48h Temp Pulse Resp BP Pulse Ox 04/13/21 18:40 36.5 C 57 L 16 123/74 98 - Physical Exam General Appearance: positive: No acute distress, Alert, Other (Morbidly obese white male at 6 foot 1 inch tall, weighs 181.43 kg, and BMI is 52.8.) Eyes Bilateral: positive: PERRL, EOMI ENT: positive: Pharynx nml. negative: Oral lesions Neck: positive: Other (Neck exam with large girth, unable to assess for JVD). negative: Lymphadenopathy (R), Lymphadenopathy (L), Stiff neck Respiratory: positive: Chest non-tender, No respiratory distress. negative: Wheezes, Rales, Rhonchi Cardiovascular: positive: Regular rate & rhythm, No murmur. negative: Gallop/S4, Friction rub Peripheral Pulses: positive: 1+ Abdomen: positive: Non-tender, Nml bowel sounds, No distention, Other (Umbilical hernia site is without redness, heat, fluctuance) Skin: positive: Warm, Dry Extremities: positive: Full ROM, Pedal edema (Severe lymphedema of legs.), Other (His thighs are about 4 times normal size, and his calves are about 5 times normal size. Bullous impetigo changes specifically around the calves. Oozing and leaking serous fluid. No redness or heat.) Neurologic/Psychiatric: positive: Oriented x3, CN's nml (2-12), Motor nml Conclusion/Plan - Problem List (1) Gram-negative bacteremia Conclusion/Plan: This gentleman has a completely negative review of systems. We associate gram- negative bacteremia with either GI or urinary source. Very rarely will be a skin source. He does have a history of an umbilical hernia repair with mesh.There is no white cell count. No liver abnormalities. He does not have hemodialysis, organ transplant, in other words he is not immunocompromise. He has had no healthcare exposure in the prior 3 to 6 months. And has had no infections with Pseudomonas aeruginosa in the prior 3 months as well. The PCR with the blood cultures tells us what it is not but not what it could be. Plan: Observation status CT of the abdomen and pelvis looking for possible sources ( I am particularly interested in the Mesh area or the prostate/colon). Start empiric therapy with Levaquin p.o., and not IV, since it has good tissue penetration and my thought is that this is prostate or bowel driven. Depending on the results, a single broad-spectrum agent is appropriate when antipseudomonal therapy is not necessary. Ceftriaxone, ceftazidime, cefepime, and Zosyn are recommended in up-to-date. They also recommend narrowing the antibiotic regimen based on the final culture and susceptibility of the test results. (2) Controlled type 2 diabetes mellitus without complication, without long-term current use of insulin Conclusion/Plan: This gentleman is on Metformin in the outpatient setting. Glucose at 2 in the m orning today was 127. This evening he is 104. Plan: Check glucose in the morning only No Metformin or insulin at this time A1c in the morning (3) Lymphedema Conclusion/Plan: He has been offered lymphedema therapy. The patient has opted more for management with medications as opposed to actual therapy in that he has been on diuretics, and creams for when his legs break out. He is on Norvasc for blood pressure. I would recommend that be discontinued si nce his vasodilatory and something else be substituted such as Hytrin. His legs are massive. I told him that he really needs to focus on that is a health goal for himself. Find a good physical therapy group that specializes in lymphedema therapy [place], we will clean legs, dry them. zeroform on affected open areas and then cover w thin kerlex then on top of that use HEIDI wraps to compress. Change the HEIDI twice a day. . (4) Hypertension Conclusion/Plan: He is on a clonidine patch, Cozaar, metoprolol, Lasix, amlodipine. Plan: While he has been here his blood pressure has been relatively low. He has been a low as 104/63. I will only resume beta-roxane to avoid rebound tachycardia. Slowly resume all of his medications except Norvasc once his blood pressure tolerates it. Qualifiers: Hypertension type: primary hypertension Qualified Code(s): I10 - Essential (primary) hypertension (5) Hypokalemia Conclusion/Plan: P.o. supplementation and recheck levels in the morning - Lab Results Lab results reviewed: Yes Fish Bones: 04/13/21 19:34 04/13/21 19:34 - Diagnostic Imaging Results Diagnostic Imaging Results: positive: Final report reviewed Diagnostic Imaging Results Comments: Chest x-ray is without acute cardiopulmonary disease process Core Measures - Anticipated LOS I expect patient to be DC'd or transferred within 96 hours.: Yes - DVT/VTE - Prophylaxis VTE/DVT Device ordered at admit?: Yes
[2021-04-13] MEDS ORDERED: SODIUM CHLORIDE 0.9% 1,000 ML IV SCH (21:00)
[2021-04-13 21:03] LABS: BILIRUBIN,URINE NEGATIVE (NEGATIVE); GLUCOSE, URINE (UA) NEGATIVE (NEGATIVE); KETONES,URINE (UA) NEGATIVE (NEGATIVE); LEUKOCYTE ESTERASE, URINE NEGATIVE (NEGATIVE); NITRITE,URINE NEGATIVE (NEGATIVE); OCCULT BLOOD,URINE NEGATIVE (NEGATIVE); PROTEIN,URINE NEGATIVE (NEGATIVE); UROBILINOGEN,URINE 0.2 (NORMAL) E.U./dL (NORMAL)
[2021-04-13 21:13] LABS: BACTERIA,URINE None Seen /HPF (None Seen); CLARITY,URINE CLEAR (CLEAR); RBC,URINE 0-5 /HPF (0-5); SQUAMOUS EPITHELIAL CELL,UR FEW Squamous (<= Few); WBC,URINE 0-3 /HPF (0-3)
[2021-04-13 21:22] LABS: PSA FREE 0.1 ng/mL (0.16-2.81)
[2021-04-13 21:23] LABS: PSA TOTAL 0.29 ng/mL (0.000-2.000)
[2021-04-13] MEDS ORDERED: IOPAMIDOL-300 100 ML VIAL ONE (21:24)
[2021-04-13] MEDS ORDERED: IOPAMIDOL-300 100 ML VIAL IVP ONE (22:03)
[2021-04-13] MEDS ORDERED: POTASSIUM CHLORIDE 20 MEQ TABLET PO ONE (22:18)
[2021-04-14] MEDS: ACETAMINOPHEN 325 MG TABLET PO PRN ×2 (01:38→05:53)
[2021-04-14] MEDS: SODIUM CHLORIDE FLUSH 0.9% 10 ML SYRINGE IVP SCH ×3 (01:39→18:28)
[2021-04-14] MEDS ORDERED: PIPERACILLIN/TAZOBACTAM 3.375 GM in SODIUM CHLORIDE 0.9% MINIBAG 100 ML IV SCH (02:00)
[2021-04-14 06:08] LABS: BASOPHILS % (AUTO) 0.2 %; EOSINOPHILS # (AUTO) 0.1 10^3/uL (0.0-0.7); EOSINOPHILS % (AUTO) 0.7 %; HCT - HEMATOCRIT 33.8 % (42.0-52.0); HGB - HEMOGLOBIN 10.6 g/dL (14.0-18.0); LYMPHOCYTES # (AUTO) 1.3 10^3/uL (1.5-3.5); LYMPHOCYTES % (AUTO) 15.1 %; MEAN CORPUSCULAR HEMOGLOBIN 27.4 pg (27.0-31.0); MEAN CORPUSCULAR HGB CONC 31.4 g/dL (32.0-36.0); MEAN CORPUSCULAR VOLUME 87.3 fL (80.0-94.0); MONOCYTES # (AUTO) 0.4 10^3/uL (0.0-1.0); NEUTROPHILS # (AUTO) 6.8 10^3/uL (1.5-6.6); NEUTROPHILS % (AUTO) 77.7 %; PLT - PLATELET COUNT 196 10^3/uL (130-450); RED BLOOD COUNT 3.87 10^6/uL (4.70-6.10); WHITE BLOOD COUNT 8.7 x10^3/uL (4.8-10.8)
[2021-04-14 06:26] LABS: CALCIUM 8.6 mg/dL (8.5-10.3); CREATININE 0.9 mg/dL (0.6-1.2); CRP - C-REACTIVE PROTEIN 19.9 mg/dL (0-1.0); POTASSIUM 3.6 mmol/L (3.5-5.0)
--- NOTE | 2021-04-14 08:32 | PROVIDER PROGRESS NOTE ---
Subjective - Prog Note Date Prog Note Date: 04/14/21 - Subjective Subjective: He reports feeling better. Denies any acute pain. Feels like the erythema in his leg is improved. No nausea or vomiting. Current Medications - Current Medications Current Medications: Active Medications Acetaminophen (Acetaminophen 325 Mg Tablet) 650 mg PO Q4HR PRN PRN Reason: Pain 1 to 4 Last Admin: 04/14/21 05:53 Dose: 650 mg Documented by: Enoxaparin Sodium (Enoxaparin 40 Mg/0.4 Ml Syringe) 40 mg SUBQ DAILY [facility] Piperacillin Sod/Tazobactam (Sod 3.375 gm/ Sodium Chloride) 100 mls @ 200 mls/hr IV ONCE BALJIT Stop: 04/15/21 01:59 Last Infusion: 04/14/21 03:13 Dose: Infused Documented by: Piperacillin Sod/Tazobactam (Sod 3.375 gm/ Sodium Chloride) 100 mls @ 25 mls/hr IV Q8H [facility] Metoprolol Succinate (Metoprolol Succinate 50 Mg Tablet) 100 mg PO DAILY [facility] Ondansetron HCl (Ondansetron Odt 4 Mg Tablet) 4 mg TL Q6HR PRN PRN Reason: Nausea / Vomiting Ondansetron HCl (Ondansetron 4 Mg/2 Ml Vial) 4 mg IVP Q6HR PRN PRN Reason: Nausea / Vomiting Oxycodone HCl (Oxycodone 5 Mg Tablet) 5 mg PO Q4HR PRN PRN Reason: Pain 5 to 7 Potassium Chloride (Potassium Chloride 20 Meq Tablet) 20 meq PO DAILYWM [facility] Sodium Chloride (Sodium Chloride Flush 0.9% 10 Ml Syringe) 10 ml IVP PRN PRN PRN Reason: NEEDED PER PROVIDER ORDERS Sodium Chloride (Sodium Chloride Flush 0.9% 10 Ml Syringe) 10 ml IVP 0100,0900,1700 [facility] Last Admin: 04/14/21 01:39 Dose: Not Given Documented by: Dulaglutide [Trulicity] 3 mg IM PRN PRN 04/13/21 Eplerenone [Inspra] 25 mg PO DAILY 04/13/21 Furosemide [Lasix] 40 mg PO DAILY 04/13/21 Losartan [Cozaar] 50 mg PO DAILY 04/13/21 Metoprolol Succinate [Kapspargo Sprinkle] 100 mg PO DAILY 04/13/21 Rosuvastatin Calcium [Crestor] 20 mg PO DAILY 04/13/21 amLODIPine [Norvasc] 5 mg PO DAILY 04/13/21 cloNIDine 0.2 MG PATCH [Hrscibyk-Njs-9] 1 patch TOP PRN PRN 04/13/21 metFORMIN [Glucophage] 500 mg PO DAILY 04/13/21 Objective - Vital Signs/Intake & Output Reviewed Vital Signs: Yes Vital Signs: Vital Signs x48h Temp Pulse Resp BP Pulse Ox 04/14/21 07:43 38.1 C H 70 20 113/59 L 92 04/14/21 05:40 38.4 C H 75 20 112/60 93 04/14/21 04:08 37.3 C 04/14/21 01:31 38.5 C H 71 20 147/48 H 99 Intake & Output: Intake & Output 04/11/21 04/12/21 04/13/21 04/14/21 23:59 23:59 23:59 23:59 Intake Total 0 600 Balance 0 600 - Objective General Appearance: positive: No acute distress Eyes Bilateral: positive: Normal inspection, Conjunctivae nml ENT: positive: ENT inspection nml Neck: positive: Nml inspection Respiratory: positive: No respiratory distress. negative: Wheezes, Rales Cardiovascular: positive: Regular rate & rhythm, No murmur. negative: Tachycardia Abdomen: positive: Non-tender, No distention. negative: Tenderness Skin: positive: Warm, Dry, Other (Chronic venous stasis changes over the bilateral lower extremities but the left lower extremity does appear significantly more erythematous over the anterior aspect of the lower leg up to mid thigh. This appears improved compared to the marking that was done yesterday. Still quite warm to touch.) Extremities: positive: Pedal edema (He has +3 edema in his bilateral lower ext remities) Neurologic/Psychiatric: positive: Motor nml. negative: Disoriented to person, Disoriented to place - Lab Results Fish Bones: 04/14/21 05:54 04/14/21 05:54 Other Labs: Lab Results x24hrs 04/14/21 04/14/21 04/14/21 Range/Units 05:54 05:54 05:54 WBC 8.7 (4.8-10.8) x10^3/uL RBC 3.87 L (4.70-6.10) 10^6/uL Hgb 10.6 L (14.0-18.0) g/dL Hct 33.8 L (42.0-52.0) % MCV 87.3 (80.0-94.0) fL MCH 27.4 (27.0-31.0) pg MCHC 31.4 L (32.0-36.0) g/dL RDW 14.0 (12.0-15.0) % Plt Count 196 (130-450) 10^3/uL MPV 10.0 (7.4-11.4) fL Neut # (Auto) 6.8 H (1.5-6.6) 10^3/uL Lymph # (Auto) 1.3 L (1.5-3.5) 10^3/uL Saline # (Auto) 0.4 (0.0-1.0) 10^3/uL Eos # (Auto) 0.1 (0.0-0.7) 10^3/uL Baso # (Auto) 0.0 (0.0-0.1) 10^3/uL Absolute Nucleated RBC 0.00 x10^3/uL Nucleated RBC % 0.0 /100WBC ESR 49 H (0-20) mm/Hr Sodium 139 (135-145) mmol/L Potassium 3.6 (3.5-5.0) mmol/L Chloride 105 (101-111) mmol/L Carbon Dioxide 24 (21-32) mmol/L Anion Gap 10.0 (6-13) BUN 13 (6-20) mg/dL Creatinine 0.9 (0.6-1.2) mg/dL Estimated GFR (MDRD) 85 L (>89) Glucose 114 H (70-100) mg/dL Lactic Acid (0.5-2.2) mmol/L Calcium 8.6 (8.5-10.3) mg/dL Total Bilirubin (0.2-1.0) mg/dL AST (10-42) IU/L ALT (10-60) IU/L Alkaline Phosphatase (42-121) IU/L C-Reactive Protein 19.9 H (0-1.0) mg/dL Total Protein (6.7-8.2) g/dL Albumin (3.2-5.5) g/dL Globulin (2.1-4.2) g/dL Albumin/Globulin Ratio (1.0-2.2) Prostate Specific Ag (0.000-2.000) ng/mL Free PSA (0.16-2.81) ng/mL % Free PSA Calc (25-100) % Urine Color Urine Clarity (CLEAR) Urine pH (5.0-7.5) PH Ur Specific [place] (1.002-1.030) Urine Protein (NEGATIVE) mg/dL Urine Glucose (UA) (NEGATIVE) mg/dL Urine Ketones (NEGATIVE) mg/dL Urine Occult Blood (NEGATIVE) Urine Nitrite (NEGATIVE) Urine Bilirubin (NEGATIVE) Urine Urobilinogen (NORMAL) E.U./dL Ur Leukocyte Esterase (NEGATIVE) Urine RBC (0-5) /HPF Urine WBC (0-3) /HPF Ur Squamous Epith Cells (<= Few) Urine Bacteria (None Seen) /HPF Urine Culture Comments 04/13/21 04/13/21 04/13/21 Range/Units 20:51 19:34 19:34 WBC (4.8-10.8) x10^3/uL RBC (4.70-6.10) 10^6/uL Hgb (14.0-18.0) g/dL Hct (42.0-52.0) % MCV (80.0-94.0) fL MCH (27.0-31.0) pg MCHC (32.0-36.0) g/dL RDW (12.0-15.0) % Plt Count (130-450) 10^3/uL MPV (7.4-11.4) fL Neut # (Auto) (1.5-6.6) 10^3/uL Lymph # (Auto) (1.5-3.5) 10^3/uL Saline # (Auto) (0.0-1.0) 10^3/uL Eos # (Auto) (0.0-0.7) 10^3/uL Baso # (Auto) (0.0-0.1) 10^3/uL Absolute Nucleated RBC x10^3/uL Nucleated RBC % /100WBC ESR (0-20) mm/Hr Sodium (135-145) mmol/L Potassium (3.5-5.0) mmol/L Chloride (101-111) mmol/L Carbon Dioxide (21-32) mmol/L Anion Gap (6-13) BUN (6-20) mg/dL Creatinine (0.6-1.2) mg/dL Estimated GFR (MDRD) (>89) Glucose (70-100) mg/dL Lactic Acid 1.0 (0.5-2.2) mmol/L Calcium (8.5-10.3) mg/dL Total Bilirubin (0.2-1.0) mg/dL AST (10-42) IU/L ALT (10-60) IU/L Alkaline Phosphatase (42-121) IU/L C-Reactive Protein (0-1.0) mg/dL Total Protein (6.7-8.2) g/dL Albumin (3.2-5.5) g/dL Globulin (2.1-4.2) g/dL Albumin/Globulin Ratio (1.0-2.2) Prostate Specific Ag 0.290 (0.000-2.000) ng/mL Free PSA 0.100 L (0.16-2.81) ng/mL % Free PSA Calc 34 (25-100) % Urine Color YELLOW Urine Clarity CLEAR (CLEAR) Urine pH 6.0 (5.0-7.5) PH Ur Specific [place] 1.010 (1.002-1.030) Urine Protein NEGATIVE (NEGATIVE) mg/dL Urine Glucose (UA) NEGATIVE (NEGATIVE) mg/dL Urine Ketones NEGATIVE (NEGATIVE) mg/dL Urine Occult Blood NEGATIVE (NEGATIVE) Urine Nitrite NEGATIVE (NEGATIVE) Urine Bilirubin NEGATIVE (NEGATIVE) Urine Urobilinogen 0.2 (NORMAL) (NORMAL) E.U./dL Ur Leukocyte Esterase NEGATIVE (NEGATIVE) Urine RBC 0-5 (0-5) /HPF Urine WBC 0-3 (0-3) /HPF Ur Squamous Epith Cells FEW Squamous (<= Few) Urine Bacteria None Seen (None Seen) /HPF Urine Culture Comments NOT INDICATED 04/13/21 04/13/21 Range/Units 19:34 19:34 WBC 8.3 (4.8-10.8) x10^3/uL RBC 3.78 L (4.70-6.10) 10^6/uL Hgb 10.6 L (14.0-18.0) g/dL Hct 33.4 L (42.0-52.0) % MCV 88.4 (80.0-94.0) fL MCH 28.0 (27.0-31.0) pg MCHC 31.7 L (32.0-36.0) g/dL RDW 14.1 (12.0-15.0) % Plt Count 185 (130-450) 10^3/uL MPV 9.7 (7.4-11.4) fL Neut # (Auto) 6.8 H (1.5-6.6) 10^3/uL Lymph # (Auto) 0.9 L (1.5-3.5) 10^3/uL Saline # (Auto) 0.4 (0.0-1.0) 10^3/uL Eos # (Auto) 0.1 (0.0-0.7) 10^3/uL Baso # (Auto) 0.0 (0.0-0.1) 10^3/uL Absolute Nucleated RBC 0.00 x10^3/uL Nucleated RBC % 0.0 /100WBC ESR (0-20) mm/Hr Sodium 136 (135-145) mmol/L Potassium 3.3 L (3.5-5.0) mmol/L Chloride 102 (101-111) mmol/L Carbon Dioxide 26 (21-32) mmol/L Anion Gap 8.0 (6-13) BUN 16 (6-20) mg/dL Creatinine 1.0 (0.6-1.2) mg/dL Estimated GFR (MDRD) 75 L (>89) Glucose 104 H (70-100) mg/dL Lactic Acid (0.5-2.2) mmol/L Calcium 8.3 L (8.5-10.3) mg/dL Total Bilirubin 1.0 (0.2-1.0) mg/dL AST 41 (10-42) IU/L ALT 21 (10-60) IU/L Alkaline Phosphatase 39 L (42-121) IU/L C-Reactive Protein (0-1.0) mg/dL Total Protein 6.5 L (6.7-8.2) g/dL Albumin 3.3 (3.2-5.5) g/dL Globulin 3.2 (2.1-4.2) g/dL Albumin/Globulin Ratio 1.0 (1.0-2.2) Prostate Specific Ag (0.000-2.000) ng/mL Free PSA (0.16-2.81) ng/mL % Free PSA Calc (25-100) % Urine Color Urine Clarity (CLEAR) Urine pH (5.0-7.5) PH Ur Specific [place] (1.002-1.030) Urine Protein (NEGATIVE) mg/dL Urine Glucose (UA) (NEGATIVE) mg/dL Urine Ketones (NEGATIVE) mg/dL Urine Occult Blood (NEGATIVE) Urine Nitrite (NEGATIVE) Urine Bilirubin (NEGATIVE) Urine Urobilinogen (NORMAL) E.U./dL Ur Leukocyte Esterase (NEGATIVE) Urine RBC (0-5) /HPF Urine WBC (0-3) /HPF Ur Squamous Epith Cells (<= Few) Urine Bacteria (None Seen) /HPF Urine Culture Comments ABX Reporting Has patient been on IV antibiotics over the past 48 hours?: Yes Assessment/Plan - Problem List (1) Gram-negative bacteremia Impression: His blood cultures are growing gram-negative bacilli. We are still awaiting speciation and sensitivities. Suspect this may be related to his left lower extremity cellulitis. His urinalysis was unremarkable. CT the abdomen pelvis revealed nonspecific retroperitoneal fluid but no obvious evidence of infection. We will keep him on Zosyn IV until we have sensitivities. Repeat cultures from this admission are pending but I suspect they will likely be positive given they were rechecked before the patient received antibiotics. (2) Cellulitis of left lower extremity Impression: Suspect this is the cause of his bacteremia. His left lower extremity is erythematous and warm to touch. He does have chronic lymphedema and diabetes which are risk factors for the cellulitis. We will keep him on Zosyn IV given blood cultures are growing gram-negative bacilli. If there is no improvement over next 24 hours then we will add vancomycin. We will trend his CRP. (3) Lymphedema Impression: This is a chronic problem for the patient. His legs are quite edematous and he is now being treated for left lower extremity cellulitis. We have placed him on a low-sodium diet and will recommend leg elevation. We will discontinue the amlodipine as this can contribute to lower extremity edema. He would benefit from lymphedema clinic on outpatient basis. (4) Controlled type 2 diabetes mellitus without complication, without long-term current use of insulin Impression: His A1c is 5.8%. He is on Metformin and Trulicity at home. We will place him on sliding scale and monitor his blood glucose. Carb controlled diet. (5) Hypertension Impression: He is currently normotensive. We have continued his metoprolol. We will resume his losartan but hold his amlodipine given his chronic lymphedema and the fact that he is currently normotensive. Qualifiers: Hypertension type: primary hypertension Qualified Code(s): I10 - Essential (primary) hypertension
[2021-04-14] MEDS: ENOXAPARIN 40 MG/0.4 ML SYRINGE SUBQ SCH (08:38)
[2021-04-14] MEDS: METOPROLOL SUCCINATE 50 MG TABLET PO SCH (08:39)
[2021-04-14] MEDS: POTASSIUM CHLORIDE 20 MEQ TABLET PO SCH (08:39)
--- NOTE | 2021-04-14 09:41 | PHARMACY PROGRESS NOTE ---
- Best Possible Medication History Admit Date and Time: 04/14/21 0835 Processed by: Nursing Medication History completed: Yes Patient Interview: Completed (MED REC COMPLETED BY NURSING) As the person ultimately responsible for medication therapy, providers are able to order a medication from an existing home medication list in [facility] via the "Reconcile Routine" prior to Confirmation of that medication by technical customer support specialist. Such practice is discouraged except when the physician, in their clinical judgment, deems that a medical need exists for a medication without regard to previous use.
--- NOTE | 2021-04-14 09:43 | CT Report ---
PROCEDURE: Abdomen/Pelvis W INDICATIONS: gram neg bactermia CONTRAST: IV CONTRAST: Isovue 300 ml: 100 PO CONTRAST: *NO PO CONTRAST TECHNIQUE: After the administration of intravenous contrast, 5 mm thick sections acquired from the diaphragms to the symphysis. 5 mm thick coronal and sagittal reformats were acquired. For radiation dose reducti on, the following was used: automated exposure control, adjustment of mA and/or kV according to renae ent size. COMPARISON: None. FINDINGS: Image quality: Excellent. ABDOMEN: Lung bases: Lung bases are clear. Heart size is normal. Solid organs: Mild hepatomegaly. Hepatic steatosis. Spleen is normal in size. Gallbladder is normal Biliary system is non dilated. Pancreas enhances normally. No adrenal nodules. Kidneys demonstrate normal size and enhancementhydronephrosis no renal stone. There are a couple of exophytic cysts in the left kidney. There is a small amount of left perinephric fluid and left perito thomas fluid. Mild perinephric stranding bilaterally. Peritoneum and bowel: Bowel loops demonstrate normal wall thickness and caliber. Mild diverticulosi s without diverticulitis. No free fluid or air. Nodes and vessels: There are mildly prominent para-aortic lymph node and left iliac lymph nodes, vandana uring up to 1.1 cm in short access. Enlarged left iliac lymph nodes demonstrate fatty hilum. Moderate ly enlarged No enlarged mesenteric nodes. Aorta and inferior vena cava are normal in size. Miscellaneous: Surgical changes related to ventral hernia.. PELVIS: Genitourinary: Bladder wall thickness is normal. Miscellaneous: Small fat-containing inguinal hernias are noted. Mildly enlarged left inguinal nodes a re noted. Bones: No suspicious bony lesions. No vertebral body compression fractures. There is severe degener ative disc and facet disease in lumbar spine passing severe central canal stenosis. IMPRESSION: 1. There is small left perinephric fluid and retroperitoneal fluid. This finding is nonspecific and m ay be secondary to renal pyelonephritis. Recommend clinical correlation. 2. Mild retroperitoneal, left iliac and inguinal lymphadenopathy, most likely reactive. 3. Mild hepatomegaly and hepatic steatosis. No significant discrepancy with the preliminary interpretation. Reviewed by: Kevin Ochoa MD on 04/14/2021 9:41 AM PDT Approved by: Kevin Ochoa MD on 04/14/2021 9:41 AM PDT Station ID: [id number]
[2021-04-14] MEDS: PIPERACILLIN/TAZOBACTAM 3.375 GM in SODIUM CHLORIDE 0.9% MINIBAG 100 ML IV SCH ×2 (10:29→18:28)
[2021-04-14 11:25] LABS: ESTIMATED AVERAGE GLUCOSE 120 mg/dL (70-100); HEMOGLOBIN A1c% 5.8 % (4.27-6.07)
[2021-04-14] MEDS: INSULIN ASPART 300 UNIT/3 ML PEN SUBQ SCH ×3 (12:24→20:50)
[2021-04-14] MEDS ORDERED: levoFLOXacin 250 MG TABLET PO SCH (21:00)
[2021-04-15] MEDS: ACETAMINOPHEN 325 MG TABLET PO PRN ×2 (00:02→22:23)
[2021-04-15] MEDS: PIPERACILLIN/TAZOBACTAM 3.375 GM in SODIUM CHLORIDE 0.9% MINIBAG 100 ML IV SCH ×3 (02:00→18:14)
[2021-04-15] MEDS: SODIUM CHLORIDE FLUSH 0.9% 10 ML SYRINGE IVP SCH ×4 (02:00→23:30)
[2021-04-15 04:49] LABS: BASOPHILS % (AUTO) 0.2 %; EOSINOPHILS # (AUTO) 0.1 10^3/uL (0.0-0.7); EOSINOPHILS % (AUTO) 1.6 %; HCT - HEMATOCRIT 30.6 % (42.0-52.0); HGB - HEMOGLOBIN 9.9 g/dL (14.0-18.0); LYMPHOCYTES # (AUTO) 1.5 10^3/uL (1.5-3.5); MEAN CORPUSCULAR HGB CONC 32.4 g/dL (32.0-36.0); MEAN CORPUSCULAR VOLUME 86.4 fL (80.0-94.0); MEAN PLATELET VOLUME 9.8 fL (7.4-11.4); MONOCYTES # (AUTO) 0.6 10^3/uL (0.0-1.0); MONOCYTES % (AUTO) 7.2 %; NEUTROPHILS % (AUTO) 72.5 %; PLT - PLATELET COUNT 194 10^3/uL (130-450); RED BLOOD COUNT 3.54 10^6/uL (4.70-6.10); RED CELL DISTRIBUTION WIDTH 13.8 % (12.0-15.0); WHITE BLOOD COUNT 8.3 x10^3/uL (4.8-10.8)
[2021-04-15 05:06] LABS: CALCIUM 8.4 mg/dL (8.5-10.3); CREATININE 0.8 mg/dL (0.6-1.2); CRP - C-REACTIVE PROTEIN 15.6 mg/dL (0-1.0); POTASSIUM 3.4 mmol/L (3.5-5.0)
--- NOTE | 2021-04-15 07:47 | PROVIDER PROGRESS NOTE ---
Subjective - Prog Note Date Prog Note Date: 04/15/21 - Subjective Subjective: He reports feeling a little more short of breath today. He would like his diuretics resumed. Still febrile this morning. Feels like erythema is slightly improved in the left lower extremity. He does admit to having 2 cats at home but denies any recent scratches or bites. He does complain of bilateral knee pain which is chronic for him secondary to osteoarthritis. Current Medications - Current Medications Current Medications: Active Medications Acetaminophen (Acetaminophen 325 Mg Tablet) 650 mg PO Q4HR PRN PRN Reason: Pain 1 to 4 Last Admin: 04/15/21 00:02 Dose: 650 mg Documented by: Enoxaparin Sodium (Enoxaparin 40 Mg/0.4 Ml Syringe) 40 mg SUBQ DAILY [facility] Last Admin: 04/15/21 08:03 Dose: 40 mg Documented by: Eplerenone (Eplerenone 25 Mg Tablet) 25 mg PO DAILY [facility] Furosemide (Furosemide 40 Mg Tablet) 40 mg PO DAILY [facility] Piperacillin Sod/Tazobactam (Sod 3.375 gm/ Sodium Chloride) 100 mls @ 25 mls/hr IV Q8H [facility] Last Admin: 04/15/21 10:13 Dose: 25 mls/hr Documented by: Insulin Aspart (Insulin Aspart 300 Unit/3 Ml Pen) 1 - 5 unit SUBQ 0800,1200,1700,2100 [facility]; Protocol Last Admin: 04/15/21 08:04 Dose: Not Given Documented by: Losartan Potassium (Losartan 50 Mg Tablet) 50 mg PO DAILY [facility] Last Admin: 04/15/21 08:03 Dose: 50 mg Documented by: Metoprolol Succinate (Metoprolol Succinate 50 Mg Tablet) 100 mg PO DAILY [facility] Last Admin: 04/15/21 08:02 Dose: 100 mg Documented by: Ondansetron HCl (Ondansetron Odt 4 Mg Tablet) 4 mg TL Q6HR PRN PRN Reason: Nausea / Vomiting Ondansetron HCl (Ondansetron 4 Mg/2 Ml Vial) 4 mg IVP Q6HR PRN PRN Reason: Nausea / Vomiting Oxycodone HCl (Oxycodone 5 Mg Tablet) 5 mg PO Q4HR PRN PRN Reason: Pain 5 to 7 Potassium Chloride (Potassium Chloride 20 Meq Tablet) 20 meq PO DAILYWM [facility] Last Admin: 04/15/21 08:03 Dose: 20 meq Documented by: Sodium Chloride (Sodium Chloride Flush 0.9% 10 Ml Syringe) 10 ml IVP PRN PRN PRN Reason: NEEDED PER PROVIDER ORDERS Sodium Chloride (Sodium Chloride Flush 0.9% 10 Ml Syringe) 10 ml IVP 0100,0900,1700 [facility] Last Admin: 04/15/21 10:16 Dose: Not Given Documented by: Dulaglutide [Trulicity] 3 mg IM PRN PRN 04/13/21 Eplerenone [Inspra] 25 mg PO DAILY 04/13/21 Furosemide [Lasix] 40 mg PO DAILY 04/13/21 Losartan [Cozaar] 50 mg PO DAILY 04/13/21 Metoprolol Succinate [Kapspargo Sprinkle] 100 mg PO DAILY 04/13/21 Rosuvastatin Calcium [Crestor] 20 mg PO DAILY 04/13/21 amLODIPine [Norvasc] 5 mg PO DAILY 04/13/21 cloNIDine 0.2 MG PATCH [Ihorbubm-Ept-2] 1 patch TOP PRN PRN 04/13/21 metFORMIN [Glucophage] 500 mg PO DAILY 04/13/21 Objective - Vital Signs/Intake & Output Reviewed Vital Signs: Yes Vital Signs: Vital Signs x48h Temp Pulse Resp BP Pulse Ox 04/15/21 07:33 38.2 C H 65 24 155/73 H 93 04/15/21 04:05 36.9 C 75 20 133/73 H 93 04/15/21 02:04 37.2 C 04/14/21 23:48 38.8 C H 65 20 141/66 H 95 Intake & Output: Intake & Output 04/12/21 04/13/21 04/14/21 04/15/21 23:59 23:59 23:59 23:59 Intake Total 0 3810 300 Balance 0 3810 300 - Objective General Appearance: positive: No acute distress, Alert Eyes Bilateral: positive: Normal inspection, Conjunctivae nml ENT: positive: ENT inspection nml Neck: positive: Nml inspection Respiratory: positive: No respiratory distress, Other (He is nondistressed but does appear tachypneic. Breath sounds appear clear.) Cardiovascular: positive: Regular rate & rhythm, No murmur. negative: Tachycardia, Systolic murmur Abdomen: positive: Non-tender, No distention. negative: Tenderness, Guarding, Rebound Skin: positive: Warm, Dry, Other (The erythema of the left lower extremity has improved and it is now primarily superior to his left ankle up to the knee. There is also an area of erythema over the posterior aspect of his left thigh. This is warm to touch.) Extremities: positive: Pedal edema (He has +2 to +3 edema in his bilateral lower extremities.) Neurologic/Psychiatric: positive: Motor nml. negative: Disoriented to person, Disoriented to place, Disoriented to time - Lab Results Fish Bones: 04/15/21 04:44 04/15/21 04:44 Other Labs: Lab Results x24hrs 04/15/21 04/15/21 04/15/21 Range/Units 07:28 04:44 04:44 WBC 8.3 (4.8-10.8) x10^3/uL RBC 3.54 L (4.70-6.10) 10^6/uL Hgb 9.9 L (14.0-18.0) g/dL Hct 30.6 L (42.0-52.0) % MCV 86.4 (80.0-94.0) fL MCH 28.0 (27.0-31.0) pg MCHC 32.4 (32.0-36.0) g/dL RDW 13.8 (12.0-15.0) % Plt Count 194 (130-450) 10^3/uL MPV 9.8 (7.4-11.4) fL Neut # (Auto) 6.0 (1.5-6.6) 10^3/uL Lymph # (Auto) 1.5 (1.5-3.5) 10^3/uL [place] # (Auto) 0.6 (0.0-1.0) 10^3/uL Eos # (Auto) 0.1 (0.0-0.7) 10^3/uL Baso # (Auto) 0.0 (0.0-0.1) 10^3/uL Absolute Nucleated RBC 0.00 x10^3/uL Nucleated RBC % 0.0 /100WBC Sodium 138 (135-145) mmol/L Potassium 3.4 L (3.5-5.0) mmol/L Chloride 105 (101-111) mmol/L Carbon Dioxide 23 (21-32) mmol/L Anion Gap 10.0 (6-13) BUN 8 (6-20) mg/dL Creatinine 0.8 (0.6-1.2) mg/dL Estimated GFR (MDRD) 97 (>89) Glucose 113 H (70-100) mg/dL POC Whole Bld Glucose 85 (70 - 100) mg/dL Estimat Average Glucose (70-100) mg/dL Hemoglobin A1c % (4.27-6.07) % Calcium 8.4 L (8.5-10.3) mg/dL Magnesium 2.0 (1.7-2.8) mg/dL C-Reactive Protein 15.6 H (0-1.0) mg/dL 04/14/21 04/14/21 04/14/21 Range/Units 20:35 16:27 11:18 WBC (4.8-10.8) x10^3/uL RBC (4.70-6.10) 10^6/uL Hgb (14.0-18.0) g/dL Hct (42.0-52.0) % MCV (80.0-94.0) fL MCH (27.0-31.0) pg MCHC (32.0-36.0) g/dL RDW (12.0-15.0) % Plt Count (130-450) 10^3/uL MPV (7.4-11.4) fL Neut # (Auto) (1.5-6.6) 10^3/uL Lymph # (Auto) (1.5-3.5) 10^3/uL [place] # (Auto) (0.0-1.0) 10^3/uL Eos # (Auto) (0.0-0.7) 10^3/uL Baso # (Auto) (0.0-0.1) 10^3/uL Absolute Nucleated RBC x10^3/uL Nucleated RBC % /100WBC Sodium (135-145) mmol/L Potassium (3.5-5.0) mmol/L Chloride (101-111) mmol/L Carbon Dioxide (21-32) mmol/L Anion Gap (6-13) BUN (6-20) mg/dL Creatinine (0.6-1.2) mg/dL Estimated GFR (MDRD) (>89) Glucose (70-100) mg/dL POC Whole Bld Glucose 124 H 120 H 131 H (70 - 100) mg/dL Estimat Average Glucose (70-100) mg/dL Hemoglobin A1c % (4.27-6.07) % Calcium (8.5-10.3) mg/dL Magnesium (1.7-2.8) mg/dL C-Reactive Protein (0-1.0) mg/dL 04/14/21 Range/Units 05:54 WBC (4.8-10.8) x10^3/uL RBC (4.70-6.10) 10^6/uL Hgb (14.0-18.0) g/dL Hct (42.0-52.0) % MCV (80.0-94.0) fL MCH (27.0-31.0) pg MCHC (32.0-36.0) g/dL RDW (12.0-15.0) % Plt Count (130-450) 10^3/uL MPV (7.4-11.4) fL Neut # (Auto) (1.5-6.6) 10^3/uL Lymph # (Auto) (1.5-3.5) 10^3/uL [place] # (Auto) (0.0-1.0) 10^3/uL Eos # (Auto) (0.0-0.7) 10^3/uL Baso # (Auto) (0.0-0.1) 10^3/uL Absolute Nucleated RBC x10^3/uL Nucleated RBC % /100WBC Sodium (135-145) mmol/L Potassium (3.5-5.0) mmol/L Chloride (101-111) mmol/L Carbon Dioxide (21-32) mmol/L Anion Gap (6-13) BUN (6-20) mg/dL Creatinine (0.6-1.2) mg/dL Estimated GFR (MDRD) (>89) Glucose (70-100) mg/dL POC Whole Bld Glucose (70 - 100) mg/dL Estimat Average Glucose 120 H (70-100) mg/dL Hemoglobin A1c % 5.8 (4.27-6.07) % Calcium (8.5-10.3) mg/dL Magnesium (1.7-2.8) mg/dL C-Reactive Protein (0-1.0) mg/dL ABX Reporting Has patient been on IV antibiotics over the past 48 hours?: Yes Assessment/Plan - Problem List (1) Gram-negative bacteremia Impression: Blood 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 Repeat cultures are surprisingly negative given they were checked before he received antibiotics. Appears to be secondary to left lower extremity cellulitis. Although he does have cats at home, he denies any recent bites/scratches. There has been no oth er source of infection as initial chest x-ray is unremarkable as well as urine. There is clinically no evidence of meningitis or concerns for septic joint. We will keep him on Zosyn IV until he is fever free and we have sensitivities. I suspect we will be able to change him to oral antibiotics once he is fever free to complete 2 weeks of therapy. (2) Cellulitis of left lower extremity Impression: This appears to be the source of his Pasteurella bacteremia. He remains febrile but the erythema is improving and his CRP is trending down. He remains with a normal white count. We will keep him on Zosyn IV with today being day 2. (3) Dyspnea Impression: He reports feeling short of breath this morning and does appear tachypneic although he is saturating well on room air. Initial chest x-ray is unremarkable. We had been holding his diuretics. We will resume his home diuretics at this time and order a chest x-ray to evaluate for pulmonary vascular congestion. Will consider IV diuresis if necessary. (4) Lymphedema Impression: This is a chronic problem for the patient. His legs are quite edematous and he is now being treated for left lower extremity cellulitis. We have placed him on a low-sodium diet and will recommend leg elevation. We will resume his home diuretics. I have also ordered a chest x-ray to ensure he is not developing pulmonary vascular congestion. We have discontinued the amlodipine as this can contribute to lower extremity edema. (5) Controlled type 2 diabetes mellitus without complication, without long-term current use of insulin Impression: His blood glucose has been well controlled throughout his stay. We will continue carb controlled diet and sliding scale. We will resume his Metformin and Trulicity on discharge. (6) Hypertension Impression: He is hypertensive today with systolics in the 130s to 140s. We have resumed his home losartan today and are continuing his metoprolol. I have also resumed his Inspra and Lasix. Qualifiers: Hypertension type: primary hypertension Qualified Code(s): I10 - Essential (primary) hypertension
[2021-04-15] MEDS: METOPROLOL SUCCINATE 50 MG TABLET PO SCH (08:02)
[2021-04-15] MEDS: ENOXAPARIN 40 MG/0.4 ML SYRINGE SUBQ SCH (08:03)
[2021-04-15] MEDS: LOSARTAN 50 MG TABLET PO SCH (08:03)
[2021-04-15] MEDS: POTASSIUM CHLORIDE 20 MEQ TABLET PO SCH (08:03)
[2021-04-15] MEDS: INSULIN ASPART 300 UNIT/3 ML PEN SUBQ SCH ×4 (08:04→20:52)
[2021-04-15] MEDS ORDERED: POTASSIUM CHLORIDE 20 MEQ TABLET PO ONE (10:00)
[2021-04-15] MEDS: EPLERENONE 25 MG TABLET PO SCH (12:37)
[2021-04-15] MEDS: FUROSEMIDE 40 MG TABLET PO SCH (12:38)
--- NOTE | 2021-04-15 13:28 | XRAY Report ---
PROCEDURE: Chest 1 View X-Ray INDICATIONS: Dyspnea. Fever. TECHNIQUE: One view of the chest was acquired. COMPARISON: 04/13/2021 FINDINGS: Surgical changes and devices: None. Lungs and pleura: No pleural effusions or pneumothorax. Mild generalized interstitial prominence can be seen. The appearance of the lungs is worse than on the prior chest radiograph, December 2020. Mediastinum: Mediastinal contours appear normal. Heart size is normal. Bones and chest wall: No suspicious bony lesions. Age-appropriate degenerative changes are seen. O verlying soft tissues appear unremarkable. IMPRESSION: Worsening interstitial prominence. Please consider pulmonary edema versus atypical infiltrate (includ ing COVID pneumonia) Reviewed by: Ramiro Carmona MD on 04/15/2021 12:27 PM AKDT Approved by: Ramiro Carmona MD on 04/15/2021 12:27 PM ADAMDT Station ID: [id number]
[2021-04-15] MEDS: SODIUM CHLORIDE FLUSH 0.9% 10 ML SYRINGE IVP PRN (18:14)
[2021-04-16] MEDS: PIPERACILLIN/TAZOBACTAM 3.375 GM in SODIUM CHLORIDE 0.9% MINIBAG 100 ML IV SCH ×3 (02:03→18:03)
[2021-04-16 05:12] LABS: BASOPHILS % (AUTO) 0.3 %; EOSINOPHILS # (AUTO) 0.2 10^3/uL (0.0-0.7); EOSINOPHILS % (AUTO) 2.9 %; HGB - HEMOGLOBIN 9.4 g/dL (14.0-18.0); LYMPHOCYTES # (AUTO) 1.7 10^3/uL (1.5-3.5); LYMPHOCYTES % (AUTO) 21.8 %; MEAN CORPUSCULAR HEMOGLOBIN 27.9 pg (27.0-31.0); MEAN CORPUSCULAR HGB CONC 32.4 g/dL (32.0-36.0); MEAN CORPUSCULAR VOLUME 86.1 fL (80.0-94.0); MEAN PLATELET VOLUME 9.9 fL (7.4-11.4); MONOCYTES # (AUTO) 0.6 10^3/uL (0.0-1.0); MONOCYTES % (AUTO) 7.6 %; NEUTROPHILS # (AUTO) 5.1 10^3/uL (1.5-6.6); NEUTROPHILS % (AUTO) 66.6 %; PLT - PLATELET COUNT 219 10^3/uL (130-450); RED BLOOD COUNT 3.37 10^6/uL (4.70-6.10); WHITE BLOOD COUNT 7.6 x10^3/uL (4.8-10.8)
[2021-04-16 05:28] LABS: CALCIUM 8.2 mg/dL (8.5-10.3); CREATININE 0.7 mg/dL (0.6-1.2); POTASSIUM 3.3 mmol/L (3.5-5.0)
[2021-04-16] MEDS ORDERED: POTASSIUM CHLORIDE 20 MEQ TABLET PO ONE (08:02)
--- NOTE | 2021-04-16 08:02 | PROVIDER PROGRESS NOTE ---
Subjective - Prog Note Date Prog Note Date: 04/16/21 - Subjective Subjective: He feels improvement dyspnea standpoint although will still occasionally feel short of breath at rest. Denies any pain in his lower extremity. Still feels febrile at times. Current Medications - Current Medications Current Medications: Active Medications Acetaminophen (Acetaminophen 325 Mg Tablet) 650 mg PO Q4HR PRN PRN Reason: Pain 1 to 4 Last Admin: 04/15/21 22:23 Dose: 650 mg Documented by: Enoxaparin Sodium (Enoxaparin 40 Mg/0.4 Ml Syringe) 40 mg SUBQ DAILY [facility] Last Admin: 04/16/21 08:43 Dose: 40 mg Documented by: Eplerenone (Eplerenone 25 Mg Tablet) 25 mg PO DAILY [facility] Last Admin: 04/16/21 08:42 Dose: 25 mg Documented by: Furosemide (Furosemide 40 Mg Tablet) 40 mg PO DAILY [facility] Last Admin: 04/16/21 08:40 Dose: 40 mg Documented by: Piperacillin Sod/Tazobactam (Sod 3.375 gm/ Sodium Chloride) 100 mls @ 25 mls/hr IV Q8H [facility] Last Admin: 04/16/21 10:46 Dose: 25 mls/hr Documented by: Insulin Aspart (Insulin Aspart 300 Unit/3 Ml Pen) 1 - 5 unit SUBQ 0800,1200,1700,2100 [facility]; Protocol Last Admin: 04/16/21 13:32 Dose: Not Given Documented by: Losartan Potassium (Losartan 50 Mg Tablet) 50 mg PO DAILY [facility] Last Admin: 04/16/21 08:40 Dose: 50 mg Documented by: Metoprolol Succinate (Metoprolol Succinate 50 Mg Tablet) 100 mg PO DAILY [facility] Last Admin: 04/16/21 08:39 Dose: 100 mg Documented by: Ondansetron HCl (Ondansetron Odt 4 Mg Tablet) 4 mg TL Q6HR PRN PRN Reason: Nausea / Vomiting Ondansetron HCl (Ondansetron 4 Mg/2 Ml Vial) 4 mg IVP Q6HR PRN PRN Reason: Nausea / Vomiting Oxycodone HCl (Oxycodone 5 Mg Tablet) 5 mg PO Q4HR PRN PRN Reason: Pain 5 to 7 Potassium Chloride (Potassium Chloride 20 Meq Tablet) 20 meq PO DAILYWM [facility] Last Admin: 04/16/21 08:40 Dose: 20 meq Documented by: Sodium Chloride (Sodium Chloride Flush 0.9% 10 Ml Syringe) 10 ml IVP PRN PRN PRN Reason: NEEDED PER PROVIDER ORDERS Last Admin: 04/15/21 18:14 Dose: 10 ml Documented by: Sodium Chloride (Sodium Chloride Flush 0.9% 10 Ml Syringe) 10 ml IVP 0100,0900,1700 [facility] Last Admin: 04/16/21 08:43 Dose: 10 ml Documented by: Dulaglutide [Trulicity] 3 mg IM PRN PRN 04/13/21 Eplerenone [Inspra] 25 mg PO DAILY 04/13/21 Furosemide [Lasix] 40 mg PO DAILY 04/13/21 Losartan [Cozaar] 50 mg PO DAILY 04/13/21 Metoprolol Succinate [Kapspargo Sprinkle] 100 mg PO DAILY 04/13/21 Rosuvastatin Calcium [Crestor] 20 mg PO DAILY 04/13/21 amLODIPine [Norvasc] 5 mg PO DAILY 04/13/21 cloNIDine 0.2 MG PATCH [Soawcodg-Tyu-6] 1 patch TOP PRN PRN 04/13/21 metFORMIN [Glucophage] 500 mg PO DAILY 04/13/21 Objective - Vital Signs/Intake & Output Reviewed Vital Signs: Yes Vital Signs: Vital Signs x48h Temp Pulse Resp BP Pulse Ox 04/16/21 04:56 36.9 C 59 L 20 139/75 H 91 L Intake & Output: Intake & Output 04/13/21 04/14/21 04/15/21 04/16/21 23:59 23:59 23:59 23:59 Intake Total 0 3810 2110 100 Output Total 1175 Balance 0 3810 935 100 - Objective General Appearance: positive: No acute distress, Alert Eyes Bilateral: positive: Normal inspection, Conjunctivae nml ENT: positive: ENT inspection nml Neck: positive: Nml inspection Respiratory: positive: No respiratory distress, Other (He is not in distress but still appears tachypneic. Crackles bilaterally.). negative: Wheezes Cardiovascular: positive: Regular rate & rhythm, No murmur. negative: Tachycardia, Systolic murmur Abdomen: positive: Non-tender, No distention. negative: Tenderness Skin: positive: Warm, Dry, Other (His left lower extremity is still quite erythematous predominantly from the ankle to the knee. The erythema superior to the knee has now resolved. The area is still warm to touch but is nontender.) Extremities: positive: Pedal edema (+3 edema in bilateral lower extremities.) Neurologic/Psychiatric: negative: Disoriented to person, Disoriented to place - Lab Results Fish Bones: 04/16/21 04:52 04/16/21 04:52 Other Labs: Lab Results x24hrs 04/16/21 04/16/21 04/15/21 Range/Units 04:52 04:52 20:48 WBC 7.6 (4.8-10.8) x10^3/uL RBC 3.37 L (4.70-6.10) 10^6/uL Hgb 9.4 L (14.0-18.0) g/dL Hct 29.0 L (42.0-52.0) % MCV 86.1 (80.0-94.0) fL MCH 27.9 (27.0-31.0) pg MCHC 32.4 (32.0-36.0) g/dL RDW 14.0 (12.0-15.0) % Plt Count 219 (130-450) 10^3/uL MPV 9.9 (7.4-11.4) fL Neut # (Auto) 5.1 (1.5-6.6) 10^3/uL Lymph # (Auto) 1.7 (1.5-3.5) 10^3/uL [place] # (Auto) 0.6 (0.0-1.0) 10^3/uL Eos # (Auto) 0.2 (0.0-0.7) 10^3/uL Baso # (Auto) 0.0 (0.0-0.1) 10^3/uL Absolute Nucleated RBC 0.00 x10^3/uL Nucleated RBC % 0.0 /100WBC Sodium 140 (135-145) mmol/L Potassium 3.3 L (3.5-5.0) mmol/L Chloride 107 (101-111) mmol/L Carbon Dioxide 24 (21-32) mmol/L Anion Gap 9.0 (6-13) BUN 7 (6-20) mg/dL Creatinine 0.7 (0.6-1.2) mg/dL Estimated GFR (MDRD) 114 (>89) Glucose 102 H (70-100) mg/dL POC Whole Bld Glucose 127 H (70 - 100) mg/dL Calcium 8.2 L (8.5-10.3) mg/dL Magnesium 2.0 (1.7-2.8) mg/dL C-Reactive Protein 12.0 H (0-1.0) mg/dL 04/15/21 04/15/21 Range/Units 16:29 11:32 WBC (4.8-10.8) x10^3/uL RBC (4.70-6.10) 10^6/uL Hgb (14.0-18.0) g/dL Hct (42.0-52.0) % MCV (80.0-94.0) fL MCH (27.0-31.0) pg MCHC (32.0-36.0) g/dL RDW (12.0-15.0) % Plt Count (130-450) 10^3/uL MPV (7.4-11.4) fL Neut # (Auto) (1.5-6.6) 10^3/uL Lymph # (Auto) (1.5-3.5) 10^3/uL [place] # (Auto) (0.0-1.0) 10^3/uL Eos # (Auto) (0.0-0.7) 10^3/uL Baso # (Auto) (0.0-0.1) 10^3/uL Absolute Nucleated RBC x10^3/uL Nucleated RBC % /100WBC Sodium (135-145) mmol/L Potassium (3.5-5.0) mmol/L Chloride (101-111) mmol/L Carbon Dioxide (21-32) mmol/L Anion Gap (6-13) BUN (6-20) mg/dL Creatinine (0.6-1.2) mg/dL Estimated GFR (MDRD) (>89) Glucose (70-100) mg/dL POC Whole Bld Glucose 113 H 135 H (70 - 100) mg/dL Calcium (8.5-10.3) mg/dL Magnesium (1.7-2.8) mg/dL C-Reactive Protein (0-1.0) mg/dL Assessment/Plan - Problem List (1) Gram-negative bacteremia Impression: Initial blood cultures grew Pasteurella and repeat blood cultures have been negative to date. This is likely secondary to left lower extremity cellulitis. Remains on Zosyn IV although he is still febrile today. We will keep him on Zosyn IV until he is fever free and then transition to oral antibiotics to complete 2 weeks of therapy. (2) Cellulitis of left lower extremity Impression: The area of erythema has most definitely improved but is still present predominantly from the ankle to the knee. His CRP is trending down. His white count remains within normal limits. Unfortunately he is still febrile. We will keep him on Zosyn IV for other day and hope to transition to oral antibiotics once he is fever free. (3) Pulmonary vascular congestion Impression: This was the cause of his dyspnea. Chest x-ray yesterday revealed pulmonary vascular congestion. He feels improved after receiving his oral diuretics but still does look tachypneic. He is not hypoxic but have asked him that if he begins to feel more short of breath then we can give him a dose of IV Lasix. He denies a prior history of heart failure and reports that he is on diuretics for his chronic lymphedema. If he remains hospitalized until Saturday then we will obtain an echocardiogram then. For the time being we will continue his oral diuretics including furosemide and inspra. (4) Lymphedema Impression: This is a chronic problem for the patient. His legs are quite edematous and he is now being treated for left lower extremity cellulitis. We have placed him on a low-sodium diet and will recommend leg elevation. We are continuing his home diuretics. We have discontinued the amlodipine as this can contribute to lower extremity edema. (5) Controlled type 2 diabetes mellitus without complication, without long-term current use of insulin Impression: His blood glucose has been well controlled throughout his stay. We will continue carb controlled diet and sliding scale. We will resume his Metformin and Trulicity on discharge. (6) Hypertension Impression: He is hypertensive with systolics in the 140s. We have resumed all of his home and hypertensives except for the amlodipine which we are holding given his chronic lymphedema. If he remains hypertensive then we will consider increasing his Losrtan or adding hydralazine. Qualifiers: Hypertension type: primary hypertension Qualified Code(s): I10 - Essential (primary) hypertension
[2021-04-16] MEDS: METOPROLOL SUCCINATE 50 MG TABLET PO SCH (08:39)
[2021-04-16] MEDS: POTASSIUM CHLORIDE 20 MEQ TABLET PO SCH (08:40)
[2021-04-16] MEDS: LOSARTAN 50 MG TABLET PO SCH (08:40)
[2021-04-16] MEDS: FUROSEMIDE 40 MG TABLET PO SCH (08:40)
[2021-04-16] MEDS: EPLERENONE 25 MG TABLET PO SCH (08:42)
[2021-04-16] MEDS: ENOXAPARIN 40 MG/0.4 ML SYRINGE SUBQ SCH (08:43)
[2021-04-16] MEDS: INSULIN ASPART 300 UNIT/3 ML PEN SUBQ SCH ×4 (08:43→22:39)
[2021-04-16] MEDS: SODIUM CHLORIDE FLUSH 0.9% 10 ML SYRINGE IVP SCH ×2 (08:43→18:04)
[2021-04-17] MEDS: SODIUM CHLORIDE FLUSH 0.9% 10 ML SYRINGE IVP SCH ×3 (02:12→17:50)
[2021-04-17] MEDS: PIPERACILLIN/TAZOBACTAM 3.375 GM in SODIUM CHLORIDE 0.9% MINIBAG 100 ML IV SCH ×3 (02:12→17:50)
[2021-04-17 05:19] LABS: BASOPHILS % (AUTO) 0.6 %; EOSINOPHILS # (AUTO) 0.3 10^3/uL (0.0-0.7); EOSINOPHILS % (AUTO) 4.1 %; HCT - HEMATOCRIT 30.1 % (42.0-52.0); HGB - HEMOGLOBIN 9.8 g/dL (14.0-18.0); LYMPHOCYTES # (AUTO) 1.8 10^3/uL (1.5-3.5); LYMPHOCYTES % (AUTO) 25.4 %; MEAN CORPUSCULAR HEMOGLOBIN 27.7 pg (27.0-31.0); MEAN CORPUSCULAR HGB CONC 32.6 g/dL (32.0-36.0); MEAN PLATELET VOLUME 9.9 fL (7.4-11.4); MONOCYTES # (AUTO) 0.7 10^3/uL (0.0-1.0); MONOCYTES % (AUTO) 10.4 %; NEUTROPHILS % (AUTO) 57.8 %; NRBC ABSOLUTE COUNT (AUTO) 0.03 x10^3/uL; NUCLEATED RED BLOOD CELLS AUTO 0.4 /100WBC; PLT - PLATELET COUNT 246 10^3/uL (130-450); RED BLOOD COUNT 3.54 10^6/uL (4.70-6.10); RED CELL DISTRIBUTION WIDTH 13.8 % (12.0-15.0); WHITE BLOOD COUNT 6.9 x10^3/uL (4.8-10.8)
[2021-04-17 05:35] LABS: CALCIUM 8.5 mg/dL (8.5-10.3); CREATININE 0.7 mg/dL (0.6-1.2); CRP - C-REACTIVE PROTEIN 10.7 mg/dL (0-1.0); MAGNESIUM 2.1 mg/dL (1.7-2.8); POTASSIUM 3.3 mmol/L (3.5-5.0)
[2021-04-17] MEDS: INSULIN ASPART 300 UNIT/3 ML PEN SUBQ SCH ×4 (07:53→21:27)
[2021-04-17] MEDS: EPLERENONE 25 MG TABLET PO SCH (08:17)
[2021-04-17] MEDS: METOPROLOL SUCCINATE 50 MG TABLET PO SCH (08:18)
[2021-04-17] MEDS: FUROSEMIDE 40 MG TABLET PO SCH (08:18)
[2021-04-17] MEDS: LOSARTAN 50 MG TABLET PO SCH (08:18)
[2021-04-17] MEDS: ENOXAPARIN 40 MG/0.4 ML SYRINGE SUBQ SCH (08:18)
[2021-04-17] MEDS: POTASSIUM CHLORIDE 20 MEQ TABLET PO SCH ×2 (08:28→17:50)
[2021-04-17] MEDS: SODIUM CHLORIDE FLUSH 0.9% 10 ML SYRINGE IVP PRN (10:46)
[2021-04-17] MEDS ORDERED: POTASSIUM CHLORIDE 20 MEQ TABLET PO SCH (11:00)
--- NOTE | 2021-04-17 14:14 | PROVIDER PROGRESS NOTE ---
Subjective - Prog Note Date Prog Note Date: 04/17/21 - Subjective Subjective: He feels improved and her breathing standpoint. Still feels his legs are quite edematous. The erythema in his left lower extremity has improved. Current Medications - Current Medications Current Medications: Active Medications Acetaminophen (Acetaminophen 325 Mg Tablet) 650 mg PO Q4HR PRN PRN Reason: Pain 1 to 4 Last Admin: 04/15/21 22:23 Dose: 650 mg Documented by: Enoxaparin Sodium (Enoxaparin 40 Mg/0.4 Ml Syringe) 40 mg SUBQ DAILY [facility] Last Admin: 04/17/21 08:18 Dose: 40 mg Documented by: Eplerenone (Eplerenone 25 Mg Tablet) 25 mg PO DAILY [facility] Last Admin: 04/17/21 08:17 Dose: 25 mg Documented by: Furosemide (Furosemide 40 Mg Tablet) 40 mg PO DAILY [facility] Last Admin: 04/17/21 08:18 Dose: 40 mg Documented by: Piperacillin Sod/Tazobactam (Sod 3.375 gm/ Sodium Chloride) 100 mls @ 25 mls/hr IV Q8H [facility] Last Admin: 04/17/21 10:38 Dose: 25 mls/hr Documented by: Insulin Aspart (Insulin Aspart 300 Unit/3 Ml Pen) 1 - 5 unit SUBQ 0800,1200,1700,2100 [facility]; Protocol Last Admin: 04/17/21 11:44 Dose: Not Given Documented by: Losartan Potassium (Losartan 50 Mg Tablet) 50 mg PO DAILY [facility] Last Admin: 04/17/21 08:18 Dose: 50 mg Documented by: Metoprolol Succinate (Metoprolol Succinate 50 Mg Tablet) 100 mg PO DAILY [facility] Last Admin: 04/17/21 08:18 Dose: 100 mg Documented by: Ondansetron HCl (Ondansetron Odt 4 Mg Tablet) 4 mg TL Q6HR PRN PRN Reason: Nausea / Vomiting Ondansetron HCl (Ondansetron 4 Mg/2 Ml Vial) 4 mg IVP Q6HR PRN PRN Reason: Nausea / Vomiting Oxycodone HCl (Oxycodone 5 Mg Tablet) 5 mg PO Q4HR PRN PRN Reason: Pain 5 to 7 Potassium Chloride (Potassium Chloride 20 Meq Tablet) 20 meq PO BIDWM [facility] Last Admin: 04/17/21 08:28 Dose: 20 meq Documented by: Sodium Chloride (Sodium Chloride Flush 0.9% 10 Ml Syringe) 10 ml IVP PRN PRN PRN Reason: NEEDED PER PROVIDER ORDERS Last Admin: 04/17/21 10:46 Dose: 10 ml Documented by: Sodium Chloride (Sodium Chloride Flush 0.9% 10 Ml Syringe) 10 ml IVP 0100,0900,1700 [facility] Last Admin: 04/17/21 08:19 Dose: 10 ml Documented by: Dulaglutide [Trulicity] 3 mg IM PRN PRN 04/13/21 Eplerenone [Inspra] 25 mg PO DAILY 04/13/21 Furosemide [Lasix] 40 mg PO DAILY 04/13/21 Losartan [Cozaar] 50 mg PO DAILY 04/13/21 Metoprolol Succinate [Kapspargo Sprinkle] 100 mg PO DAILY 04/13/21 Rosuvastatin Calcium [Crestor] 20 mg PO DAILY 04/13/21 amLODIPine [Norvasc] 5 mg PO DAILY 04/13/21 cloNIDine 0.2 MG PATCH [Abzsrioy-Uhs-2] 1 patch TOP PRN PRN 04/13/21 metFORMIN [Glucophage] 500 mg PO DAILY 04/13/21 Objective - Vital Signs/Intake & Output Reviewed Vital Signs: Yes Vital Signs: Vital Signs x48h Temp Pulse Resp BP Pulse Ox 04/17/21 11:40 37.5 C 55 L 20 127/84 H 94 04/17/21 10:47 37.5 C 04/17/21 07:43 38.1 C H 57 L 20 129/72 94 Intake & Output: Intake & Output 04/14/21 04/15/21 04/16/21 04/17/21 23:59 23:59 23:59 23:59 Intake Total 3810 2110 1580 1140 Output Total 1175 0915 2345 Balance 3810 013 -029 -4331 - Objective General Appearance: positive: No acute distress, Alert Eyes Bilateral: positive: Normal inspection, Conjunctivae nml ENT: positive: ENT inspection nml Neck: positive: Nml inspection Respiratory: positive: No respiratory distress. negative: Wheezes, Rales Cardiovascular: positive: Regular rate & rhythm, No murmur. negative: Tachy cardia Abdomen: positive: Non-tender, No distention. negative: Tenderness, Guarding, Rebound Skin: positive: Other (The area of erythema has significantly improved in the left lower extremity. It is now located over mid delgadillo down to the ankle. This is improved from the upper thigh on admission.) Extremities: positive: Pedal edema (+3 edema in the bilateral lower extremities also appears more prominent in his left lower extremity today compared to the right.) - Lab Results Fish Bones: 04/17/21 04:54 04/17/21 04:54 Other Labs: Lab Results x24hrs 04/17/21 04/17/21 04/17/21 Range/Units 11:13 07:41 04:54 WBC (4.8-10.8) x10^3/uL RBC (4.70-6.10) 10^6/uL Hgb (14.0-18.0) g/dL Hct (42.0-52.0) % MCV (80.0-94.0) fL MCH (27.0-31.0) pg MCHC (32.0-36.0) g/dL RDW (12.0-15.0) % Plt Count (130-450) 10^3/uL MPV (7.4-11.4) fL Neut # (Auto) (1.5-6.6) 10^3/uL Lymph # (Auto) (1.5-3.5) 10^3/uL [place] # (Auto) (0.0-1.0) 10^3/uL Eos # (Auto) (0.0-0.7) 10^3/uL Baso # (Auto) (0.0-0.1) 10^3/uL Absolute Nucleated RBC x10^3/uL Nucleated RBC % /100WBC Sodium 141 (135-145) mmol/L Potassium 3.3 L (3.5-5.0) mmol/L Chloride 106 (101-111) mmol/L Carbon Dioxide 24 (21-32) mmol/L Anion Gap 11.0 (6-13) BUN 8 (6-20) mg/dL Creatinine 0.7 (0.6-1.2) mg/dL Estimated GFR (MDRD) 114 (>89) Glucose 103 H (70-100) mg/dL POC Whole Bld Glucose 105 H 97 (70 - 100) mg/dL Calcium 8.5 (8.5-10.3) mg/dL Magnesium 2.1 (1.7-2.8) mg/dL C-Reactive Protein 10.7 H (0-1.0) mg/dL 04/17/21 04/16/21 04/16/21 Range/Units 04:54 20:36 16:58 WBC 6.9 (4.8-10.8) x10^3/uL RBC 3.54 L (4.70-6.10) 10^6/uL Hgb 9.8 L (14.0-18.0) g/dL Hct 30.1 L (42.0-52.0) % MCV 85.0 (80.0-94.0) fL MCH 27.7 (27.0-31.0) pg MCHC 32.6 (32.0-36.0) g/dL RDW 13.8 (12.0-15.0) % Plt Count 246 (130-450) 10^3/uL MPV 9.9 (7.4-11.4) fL Neut # (Auto) 4.0 (1.5-6.6) 10^3/uL Lymph # (Auto) 1.8 (1.5-3.5) 10^3/uL [place] # (Auto) 0.7 (0.0-1.0) 10^3/uL Eos # (Auto) 0.3 (0.0-0.7) 10^3/uL Baso # (Auto) 0.0 (0.0-0.1) 10^3/uL Absolute Nucleated RBC 0.03 x10^3/uL Nucleated RBC % 0.4 /100WBC Sodium (135-145) mmol/L Potassium (3.5-5.0) mmol/L Chloride (101-111) mmol/L Carbon Dioxide (21-32) mmol/L Anion Gap (6-13) BUN (6-20) mg/dL Creatinine (0.6-1.2) mg/dL Estimated GFR (MDRD) (>89) Glucose (70-100) mg/dL POC Whole Bld Glucose 126 H 94 (70 - 100) mg/dL Calcium (8.5-10.3) mg/dL Magnesium (1.7-2.8) mg/dL C-Reactive Protein (0-1.0) mg/dL ABX Reporting Has patient been on IV antibiotics over the past 48 hours?: Yes Assessment/Plan - Problem List (1) Gram-negative bacteremia Impression: Initial blood cultures grew Pasteurella and repeat cultures have been negative to date. He remains on Zosyn IV but continues to have low-grade fevers. His white count remains normal and his CRP is trending down. I did speak with infectious disease today the [facility] given the patient's persistent fevers. We discussed the patient's hospital course and they agree with continuing IV antibiotics until the patient is fever free. They felt that a work-up for endocarditis is likely not warranted at this time. They recommended a total of 2 weeks of therapy and this can be completed with p.o. antibiotics. They recommended penicillin such as Augmentin. At this time we will keep him on Zosyn IV and we will look to switch to p.o. Augmentin once he is fever free and he will complete 2 weeks of therapy. (2) Cellulitis of left lower extremity Impression: This continues to improve on a daily basis. The erythema still present but only over the mid delgadillo of the left lower extremity and this is significantly improved compared to admission. Unfortunately still has low-grade fevers. His white count remains normal and his CRP is trending down We will keep him on Zosyn IV for the day and consider p.o. antibiotics tomorrow. (3) Pulmonary vascular congestion Impression: This appears improved. He remains on room air and feels improvement dyspnea standpoint. We will continue his home diuretics. An echocardiogram has been ordered for tomorrow morning. (4) Lymphedema Impression: This is a chronic problem for the patient. His legs are quite edematous and he is now being treated for left lower extremity cellulitis. We have placed him on a low-sodium diet and will recommend leg elevation. We are continuing his home diuretics. We have discontinued the amlodipine as this can contribute to lower extremity edema. I have ordered a duplex for today to evaluate for DVT which may potentially explain his low-grade fevers. (5) Controlled type 2 diabetes mellitus without complication, without long-term current use of insulin Impression: His blood glucose has been well controlled throughout his stay. We will continue carb controlled diet and sliding scale. We will resume his Metformin and Trulicity on discharge. (6) Hypertension Impression: His blood pressure is well controlled on his current regimen which we will continue. We are holding his home amlodipine given lower extremity edema. Qualifiers: Hypertension type: primary hypertension Qualified Code(s): I10 - Essential (primary) hypertension
[2021-04-17 15:11] LABS: INR 1.2 (0.8-1.2); PT - PROTHROMBIN TIME 13.5 secs (9.9-12.6)
--- NOTE | 2021-04-17 16:24 | Ultrasound Report ---
PROCEDURE: Duplex Ext Veins Bilateral INDICATIONS: Bilateral lower extremity edema, left worse than right. TECHNIQUE: Real-time imaging, as well as color and pulse Doppler interrogation, were performed of the deep veins of both legs from the inguinal ligament to the popliteal fossa. COMPARISON: None FINDINGS: The deep veins are normally compressible, and free of intraluminal thrombus. Color and pu lse Doppler demonstrate normal phasic intravascular flow. There is normal augmentation response to d istal compression maneuver. The calf veins are not seen, secondary to edema. IMPRESSION: No findings of deep venous thrombosis are seen. Reviewed by: Ramiro Carmona MD on 04/17/2021 3:23 PM KETTY Approved by: Ramiro Carmona MD on 04/17/2021 3:23 PM KETTY Station ID: [id number]
[2021-04-18] MEDS: SODIUM CHLORIDE FLUSH 0.9% 10 ML SYRINGE IVP SCH ×3 (00:08→16:44)
[2021-04-18] MEDS: SODIUM CHLORIDE FLUSH 0.9% 10 ML SYRINGE IVP PRN (02:03)
[2021-04-18] MEDS: PIPERACILLIN/TAZOBACTAM 3.375 GM in SODIUM CHLORIDE 0.9% MINIBAG 100 ML IV SCH ×3 (02:03→17:48)
[2021-04-18 06:02] LABS: BASOPHILS % (AUTO) 0.6 %; EOSINOPHILS # (AUTO) 0.3 10^3/uL (0.0-0.7); EOSINOPHILS % (AUTO) 4.7 %; HGB - HEMOGLOBIN 10.4 g/dL (14.0-18.0); LYMPHOCYTES # (AUTO) 1.6 10^3/uL (1.5-3.5); LYMPHOCYTES % (AUTO) 22.4 %; MEAN CORPUSCULAR HEMOGLOBIN 27.2 pg (27.0-31.0); MEAN CORPUSCULAR HGB CONC 31.5 g/dL (32.0-36.0); MEAN CORPUSCULAR VOLUME 86.4 fL (80.0-94.0); MEAN PLATELET VOLUME 9.7 fL (7.4-11.4); MONOCYTES # (AUTO) 0.7 10^3/uL (0.0-1.0); MONOCYTES % (AUTO) 9.8 %; NEUTROPHILS # (AUTO) 4.2 10^3/uL (1.5-6.6); NEUTROPHILS % (AUTO) 59.9 %; NRBC ABSOLUTE COUNT (AUTO) 0.04 x10^3/uL; NUCLEATED RED BLOOD CELLS AUTO 0.6 /100WBC; PLT - PLATELET COUNT 292 10^3/uL (130-450); RED BLOOD COUNT 3.82 10^6/uL (4.70-6.10); RED CELL DISTRIBUTION WIDTH 14.2 % (12.0-15.0)
[2021-04-18 06:23] LABS: CALCIUM 8.6 mg/dL (8.5-10.3); CREATININE 0.7 mg/dL (0.6-1.2); CRP - C-REACTIVE PROTEIN 7.6 mg/dL (0-1.0); MAGNESIUM 2.1 mg/dL (1.7-2.8); POTASSIUM 3.4 mmol/L (3.5-5.0)
[2021-04-18] MEDS: INSULIN ASPART 300 UNIT/3 ML PEN SUBQ SCH ×4 (09:39→21:25)
[2021-04-18] MEDS: POTASSIUM CHLORIDE 20 MEQ TABLET PO SCH ×2 (09:40→16:44)
[2021-04-18] MEDS: LOSARTAN 50 MG TABLET PO SCH (09:40)
[2021-04-18] MEDS: METOPROLOL SUCCINATE 50 MG TABLET PO SCH (09:40)
[2021-04-18] MEDS: FUROSEMIDE 40 MG TABLET PO SCH (09:40)
[2021-04-18] MEDS: EPLERENONE 25 MG TABLET PO SCH (09:41)
[2021-04-18] MEDS: ENOXAPARIN 40 MG/0.4 ML SYRINGE SUBQ SCH (09:41)
[2021-04-18] MEDS: LACTOBACILLUS RHAMNOSUS GG CAPSULE PO SCH (09:41)
--- NOTE | 2021-04-18 18:09 | PROVIDER PROGRESS NOTE ---
Assessment/Plan - Problem List (1) Gram-negative bacteremia Assessment/Plan: Initial blood cultures grew Pasteurella and repeat cultures have been negative to date. He is on Zosyn IV and continued to have low-grade fevers until today; no fever today. His white count remains normal and his CRP is trending down. The last Hospitalist yesterday spoke with infectious disease at the [facility], for advice about the patient's persistent fevers. They discussed the patient's hospital course and ID agreed with continuing IV antibiotics until the patient is fever free. They felt that a work-up for endocarditis is likely not warranted at this time. They recommended a total of 2 weeks of therapy and Continue on Zosyn IV and switch to p.o. Augmentin once he is fever free which hopefully will be tomorrow, and he will need to complete 2 weeks of therapy. (2) Cellulitis of left lower extremity Impression: This continues to improve on a daily basis. The erythema still present but only over the mid delgadillo of the left lower extremity and this is significantly improved compared to admission. His low-grade fevers have resolved, no fever today. His white count remains normal and his CRP is trending down We will keep him on Zosyn IV and plan p.o. antibiotics starting tomorrow. (3) Pulmonary vascular congestion Impression: This appears improved. He remains on room air and feels improvement dyspnea standpoint. Continue his home diuretics. An Echocardiogram was done today, results show low-normal LVEF of 50-55% and Right heart dilation with pulm HTN. (4) Cor pulmonale His Echo shows Cor pulmoinale, with pulm HTN. Possibly could be from obesity-hypoventilation syndrome. Continue diuresis No daily weights were ever ordered to follow. (5) Lymphedema Impression: This is a chronic problem for the patient. His legs are quite edematous and he is now being treated for left lower extremity cellulitis. We have placed him on a low-sodium diet and will recommend leg elevation. We are continuing his home diuretics. We have discontinued the amlodipine as this can contribute to lower extremity edema. A duplex Doppler of lower extrem was done to evaluate for DVT which may have potentially explained his low-grade fevers. It was negative for DVT (6) Controlled type 2 diabetes mellitus without complication, without long-term current use of insulin Impression: His blood glucose has been well controlled throughout his stay. Will continue carb controlled diet and sliding scale. We will resume his Metformin and Trulicity on discharge. (7) Hypertension Impression: His blood pressure is well controlled on his current regimen which we will c ontinue. We are holding his home amlodipine given lower extremity edema. Qualifiers: Hypertension type: primary hypertension Qualified Code(s): I10 - Essential (primary) hypertension - Current Meds Current Meds: Current Medications Generic Name Dose Route Start Last Admin Trade Name Freq PRN Reason Stop Dose Admin Acetaminophen 650 mg 04/13/21 20:49 04/15/21 22:23 Acetaminophen 325 Mg Tablet PO 650 mg Q4HR PRN Administration Pain 1 to 4 Enoxaparin Sodium 40 mg 04/14/21 09:00 04/18/21 09:41 Enoxaparin 40 Mg/0.4 Ml Syringe SUBQ 40 mg DAILY [facility] Administration Eplerenone 25 mg 04/15/21 12:00 04/18/21 09:41 Eplerenone 25 Mg Tablet PO 25 mg DAILY [facility] Administration Furosemide 40 mg 04/15/21 12:00 04/18/21 09:40 Furosemide 40 Mg Tablet PO 40 mg DAILY [facility] Administration Piperacillin Sod/Tazobactam 100 mls @ 25 mls/hr 04/14/21 10:00 04/18/21 17:48 Sod 3.375 gm/ Sodium Chloride IV 25 mls/hr Q8H [facility] Administration Insulin Aspart 1 - 5 unit 04/14/21 12:00 04/18/21 16:44 Insulin Aspart 300 Unit/3 Ml Pen SUBQ Not Given 0800,1200,1700,2100 [facility] Protocol Lactobacillus Rhamnosus 1 cap 04/18/21 09:00 04/18/21 09:41 Lactobacillus Rhamnosus Gg Capsule PO 1 cap DAILY [facility] Administration Losartan Potassium 50 mg 04/15/21 09:00 04/18/21 09:40 Losartan 50 Mg Tablet PO 50 mg DAILY [facility] Administration Metoprolol Succinate 100 mg 04/14/21 09:00 04/18/21 09:40 Metoprolol Succinate 50 Mg Tablet PO 100 mg DAILY [facility] Administration Potassium Chloride 20 meq 04/17/21 09:00 04/18/21 16:44 Potassium Chloride 20 Meq Tablet PO 20 meq BIDWM [facility] Administration Sodium Chloride 10 ml 04/13/21 20:49 04/18/21 02:03 Sodium Chloride Flush 0.9% 10 Ml Syringe IVP 10 ml PRN PRN Administration NEEDED PER PROVIDER ORDERS Sodium Chloride 10 ml 04/14/21 01:00 04/18/21 16:44 Sodium Chloride Flush 0.9% 10 Ml Syringe IVP 10 ml 0100,0900,1700 [facility] Administration - Lab Result Fish Bone Diagrams: 04/18/21 05:51 04/18/21 05:51 Subjective - Subjective Patient Reports: Feeling Better, Resting Comfortably (Leg are elevated above level of his chest) Objective Vital Signs: Vital Signs - 24 hr 04/17/21 04/18/21 04/18/21 20:39 00:01 02:02 Temperature 37.2 C 37.6 C 37.2 C Heart Rate [ 54 L 60 Brachial] Respiratory 20 20 Rate Blood Pressure 148/68 H 143/63 H [Left Brachial artery] Blood Pressure [Right Brachial artery] O2 Saturation 98 93 04/18/21 04/18/21 04/18/21 05:40 08:46 13:24 Temperature 37.2 C 37.2 C 36.9 C Heart Rate [ 56 L 59 L 55 L Brachial] Respiratory 20 20 20 Rate Blood Pressure 155/68 H 158/71 H [Left Brachial artery] Blood Pressure 139/67 H [Right Brachial artery] O2 Saturation 94 94 98 04/18/21 16:32 Temperature 37.1 C Heart Rate [ 55 L Brachial] Respiratory 16 Rate Blood Pressure 141/64 H [Left Brachial artery] Blood Pressure [Right Brachial artery] O2 Saturation 94 Oxygen O2 Source Room air I&O (Last 24 Hrs): Intake and Output Totals x24h 04/16/21 04/17/21 04/18/21 23:59 23:59 23:59 Intake Total 1580 1960 1770 Output Total 1822 3073 1825 Balance -245 -775 -55 General: Alert, Oriented x3 HEENT: Mucous membr. moist/pink Neck: Supple Neuro: Alert, Non Focal Cardiovascular: Regular rate, No murmurs Respiratory: No respiratory distress, Breath sounds nml Abdomen: Normal bowel sounds (Obese with pannus), Soft Extremities: Other (3+ edema bilat, both posterior shins have pink fungated lesions) - Results Results: Laboratory Results WBC 7.0 x10^3/uL (4.8-10.8) 04/18/21 05:51 RBC 3.82 10^6/uL (4.70-6.10) L 04/18/21 05:51 Hgb 10.4 g/dL (14.0-18.0) L 04/18/21 05:51 Hct 33.0 % (42.0-52.0) L 04/18/21 05:51 MCV 86.4 fL (80.0-94.0) 04/18/21 05:51 MCH 27.2 pg (27.0-31.0) 04/18/21 05:51 MCHC 31.5 g/dL (32.0-36.0) L 04/18/21 05:51 RDW 14.2 % (12.0-15.0) 04/18/21 05:51 Plt Count 292 10^3/uL (130-450) 04/18/21 05:51 MPV 9.7 fL (7.4-11.4) 04/18/21 05:51 Neut # (Auto) 4.2 10^3/uL (1.5-6.6) 04/18/21 05:51 Lymph # (Auto) 1.6 10^3/uL (1.5-3.5) 04/18/21 05:51 [place] # (Auto) 0.7 10^3/uL (0.0-1.0) 04/18/21 05:51 Eos # (Auto) 0.3 10^3/uL (0.0-0.7) 04/18/21 05:51 Baso # (Auto) 0.0 10^3/uL (0.0-0.1) 04/18/21 05:51 Absolute Nucleated RBC 0.04 x10^3/uL 04/18/21 05:51 Nucleated RBC % 0.6 /100WBC 04/18/21 05:51 ESR 49 mm/Hr (0-20) H 04/14/21 05:54 PT 13.5 secs (9.9-12.6) H 04/17/21 14:59 INR 1.2 (0.8-1.2) 04/17/21 14:59 Sodium 141 mmol/L (135-145) 04/18/21 05:51 Potassium 3.4 mmol/L (3.5-5.0) L 04/18/21 05:51 Chloride 106 mmol/L (101-111) 04/18/21 05:51 Carbon Dioxide 24 mmol/L (21-32) 04/18/21 05:51 Anion Gap 11.0 (6-13) 04/18/21 05:51 BUN 9 mg/dL (6-20) 04/18/21 05:51 Creatinine 0.7 mg/dL (0.6-1.2) 04/18/21 05:51 Estimated GFR (MDRD) 114 (>89) 04/18/21 05:51 Glucose 100 mg/dL (70-100) 04/18/21 05:51 POC Whole Bld Glucose 101 mg/dL (70 - 100) H 04/18/21 16:38 Estimat Average Glucose 120 mg/dL (70-100) H 04/14/21 05:54 Hemoglobin A1c % 5.8 % (4.27-6.07) 04/14/21 05:54 Lactic Acid 1.0 mmol/L (0.5-2.2) 04/13/21 19:34 Calcium 8.6 mg/dL (8.5-10.3) 04/18/21 05:51 Magnesium 2.1 mg/dL (1.7-2.8) 04/18/21 05:51 Total Bilirubin 1.0 mg/dL (0.2-1.0) 04/13/21 19:34 AST 41 IU/L (10-42) 04/13/21 19:34 ALT 21 IU/L (10-60) 04/13/21 19:34 Alkaline Phosphatase 39 IU/L (42-121) L 04/13/21 19:34 C-Reactive Protein 7.6 mg/dL (0-1.0) H 04/18/21 05:51 Total Protein 6.5 g/dL (6.7-8.2) L 04/13/21 19:34 Albumin 3.3 g/dL (3.2-5.5) 04/13/21 19:34 Globulin 3.2 g/dL (2.1-4.2) 04/13/21 19:34 Albumin/Globulin Ratio 1.0 (1.0-2.2) 04/13/21 19:34 Prostate Specific Ag 0.290 ng/mL (0.000-2.000) 04/13/21 19:34 Free PSA 0.100 ng/mL (0.16-2.81) L 04/13/21 19:34 % Free PSA Calc 34 % (25-100) 04/13/21 19:34 Urine Color YELLOW 04/13/21 20:51 Urine Clarity CLEAR (CLEAR) 04/13/21 20:51 Urine pH 6.0 PH (5.0-7.5) 04/13/21 20:51 Ur Specific [place] 1.010 (1.002-1.030) 04/13/21 20:51 Urine Protein NEGATIVE mg/dL (NEGATIVE) 04/13/21 20:51 Urine Glucose (UA) NEGATIVE mg/dL (NEGATIVE) 04/13/21 20:51 Urine Ketones NEGATIVE mg/dL (NEGATIVE) 04/13/21 20:51 Urine Occult Blood NEGATIVE (NEGATIVE) 04/13/21 20:51 Urine Nitrite NEGATIVE (NEGATIVE) 04/13/21 20:51 Urine Bilirubin NEGATIVE (NEGATIVE) 04/13/21 20:51 Urine Urobilinogen 0.2 (NORMAL) E.U./dL (NORMAL) 04/13/21 20:51 Ur Leukocyte Esterase NEGATIVE (NEGATIVE) 04/13/21 20:51 Urine RBC 0-5 /HPF (0-5) 04/13/21 20:51 Urine WBC 0-3 /HPF (0-3) 04/13/21 20:51 Ur Squamous Epith Cells FEW Squamous (<= Few) 04/13/21 20:51 Urine Bacteria None Seen /HPF (None Seen) 04/13/21 20:51 Urine Culture Comments NOT INDICATED 04/13/21 20:51
[2021-04-18] MEDS ORDERED: LIDOCAINE 1%-EPI 1:100000 30 ML MDV TOP ONE (19:00)
[2021-04-18] MEDS ORDERED: LIDOCAINE 1%-EPI 1:100000 20 ML MDV TOP ONE (19:00)
--- NOTE | 2021-04-18 20:41 | PROCEDURE REPORT ---
Hospitalist Procedure Note - Procedure Note Procedure Note: April 18, 2021 7 PM In discussing the patient's cellulitis, he says that he had the secondary skin growth start shortly thereafter. He has had multiple episodes of leg infections. He always felt that he had the same disease his mother had. He shows me photos of his mom's legs and she definitely has classic venous stasis dermatitis with nonpressure skin ulcers due to that. Shiny tight skin, red, oozing. But no gross. He said that these gross on his legs started, he then developed lymphedema, and then subsequent cellulitis infections over the past. The growths have gotten big enough that he can sometimes separate a fold of skin from another fold of skin much like a flap. The growths are hard, verrucous, irregular and cover in an upper shelf in the upper third of his calves, and the distal third of his legs. In an effort to make a diagnosis of what the skin disease is, I have asked his permission to do a punch biopsy. I have discussed the risk of bleeding, infection from a biopsy. He states that he has cut his legs before so he knows what it is like to have constant oozing. He agrees to the punch biopsy. The skin of the patient's right lateral upper calf was cleaned with Betadine. Using 3 swabs. He has almost no sensation of pain and did not feel the lidocaine with epinephrine, 1-1/2 cc that went into numb his leg. It was very difficult to get the lidocaine with epi and because the firm rubbery skin texture would almost not allow any anesthesia to be injected. I did an 8 mm punch biopsy. A white rubbery biopsy was submitted for pathologic evaluation. I closed the punch biopsy site with a single 4-0 nylon suture. There is no bleeding or oozing at this time. We can remove the stitch in the next 7 days. Patient tolerated the procedure without any discomfort.
[2021-04-19] MEDS: SODIUM CHLORIDE FLUSH 0.9% 10 ML SYRINGE IVP SCH ×2 (00:18→11:25)
[2021-04-19] MEDS: PIPERACILLIN/TAZOBACTAM 3.375 GM in SODIUM CHLORIDE 0.9% MINIBAG 100 ML IV SCH ×2 (01:48→11:25)
[2021-04-19 05:35] LABS: BASOPHILS % (AUTO) 0.3 %; EOSINOPHILS # (AUTO) 0.4 10^3/uL (0.0-0.7); EOSINOPHILS % (AUTO) 5.6 %; HCT - HEMATOCRIT 31.1 % (42.0-52.0); HGB - HEMOGLOBIN 9.7 g/dL (14.0-18.0); LYMPHOCYTES # (AUTO) 1.6 10^3/uL (1.5-3.5); LYMPHOCYTES % (AUTO) 23.8 %; MEAN CORPUSCULAR HEMOGLOBIN 27.1 pg (27.0-31.0); MEAN CORPUSCULAR HGB CONC 31.2 g/dL (32.0-36.0); MEAN CORPUSCULAR VOLUME 86.9 fL (80.0-94.0); MEAN PLATELET VOLUME 9.7 fL (7.4-11.4); MONOCYTES # (AUTO) 0.5 10^3/uL (0.0-1.0); MONOCYTES % (AUTO) 7.9 %; NEUTROPHILS # (AUTO) 4.1 10^3/uL (1.5-6.6); NEUTROPHILS % (AUTO) 59.6 %; NRBC ABSOLUTE COUNT (AUTO) 0.04 x10^3/uL; NUCLEATED RED BLOOD CELLS AUTO 0.6 /100WBC; PLT - PLATELET COUNT 324 10^3/uL (130-450); RED BLOOD COUNT 3.58 10^6/uL (4.70-6.10); RED CELL DISTRIBUTION WIDTH 14.2 % (12.0-15.0); WHITE BLOOD COUNT 6.8 x10^3/uL (4.8-10.8)
[2021-04-19 05:42] LABS: CALCIUM 8.4 mg/dL (8.5-10.3); CREATININE 0.7 mg/dL (0.6-1.2); POTASSIUM 3.3 mmol/L (3.5-5.0)
[2021-04-19] MEDS: POTASSIUM CHLORIDE 20 MEQ TABLET PO SCH (08:31)
[2021-04-19] MEDS: LACTOBACILLUS RHAMNOSUS GG CAPSULE PO SCH (08:31)
[2021-04-19] MEDS: LOSARTAN 50 MG TABLET PO SCH (08:31)
[2021-04-19] MEDS: EPLERENONE 25 MG TABLET PO SCH (08:31)
[2021-04-19] MEDS: FUROSEMIDE 40 MG TABLET PO SCH (08:32)
[2021-04-19] MEDS: METOPROLOL SUCCINATE 50 MG TABLET PO SCH (08:32)
[2021-04-19] MEDS: ENOXAPARIN 40 MG/0.4 ML SYRINGE SUBQ SCH (08:33)
[2021-04-19] MEDS: INSULIN ASPART 300 UNIT/3 ML PEN SUBQ SCH ×2 (08:36→11:31)
--- NOTE | 2021-04-19 08:55 | Discharge Plan ---
Discharge Plan Problem Reviewed?: Yes Disposition: Home, Self Care Condition: Stable Prescriptions: Amox/Clav 875/125 [Augmentin 875/125 Tab] 1 tablet PO Q12H 10 Days #16 tablet Lactobacillus Rhamnosus GG [Culturelle] 1 cap PO DAILY #8 cap Diet: Diabetic Activity Restrictions: Activity as Tolerated Shower Restrictions: No Driving Restrictions: No Instruction Topics: Sutr Care, ED Sutr Removal No Compl Ch Health Concerns: You were hospitalized due to infection of the lower left leg and for treatment of the swelling of both legs. You underwent biopsy and results usually take about one week to return. One suture was placed at the biopsy site and this should be removed at a follow-up appointment with your Primary Care Provider. Resume all your usual pre-hospital medications EXCEPT STOP the Amlodipine, which is likely adding to your swelling. You are being discharged home to take 8 more days of pill antibiotics to complete treatment for the infection. Also a probiotic, to prevent diarrhea, is being prescribed. New prescriptions were electronically sent to your pharmacy. While you are here an Echocardiogram (ultrasound of your heart) was done and shows that you have "Cor pulmonole", which means the right side of your heart is strained from obesity and probably from sleep apnea. This should have closer attention in the future and may be the cause of your chronic leg swelling. With this diagnosis you also qualify to attend Pulmonary Rehab here, as an outpatient, after pulmonary evaluation is done. You would need a referral from your PCP to attend. Plan of Treatment: As above. You should see your Primary Care Provider in 1 to 2 weeks for hospital follow-up office visit. Care Goals: Improvement in symptoms and stabilization are the goals. Assessment: The patient understands and is agreeable with the plan. Additional Instructions or Follow Up instructions: If you have new or worsening symptoms, call your PCP for advice or come to the ER. Follow-Up Care: [facility] No Smoking: If you smoke, Please STOP! Call for help. Follow-up with: Lucian Hurley MD [Primary Care Provider] -
[2021-04-19 11:45] VITALS: BP 141/74
--- NOTE | 2021-04-19 12:36 | DISCHARGE SUMMARY ---
Discharge Summary Admit Date: 04/13/21 Discharge Date: 04/19/21 Discharging Provider: Dr Lisbet Schwarz Primary Care Provider: Dr Lucian Hurley Condition at Discharge: Stable Discharge Disposition: 01 Home, Self Care - [facility] History of Present Illness: From the admission H&P of Dr Shelby Schmitt: This is a 65-year-old male who has a history of high blood pressure, hyperlipidemia, and diabetes that presented to the emergency room yesterday with fever to 104. For approximately 24 to 48 hours he has been feeling fatigued, having chills, no appetite. He denied any abdominal pain with this. No epigastric pain. No nausea, vomiting, diarrhea. He denies urgency, frequency, dysuria or hematuria. No flank pain. He denied cough, wheezing, shortness of breath. There were no ENT complaints. There is no sore throat, ear pain, eustachian tube dysfunction or rhinorrhea. He has had Covid vaccination with [employer]. He has chronic lymphedema. In the emergency room they documented a temperature to 39.5. A good blood pressure 138/70, 95% on room air. On physical examination he had a small skin breakdown over the back of his calf but certainly no severe cellulitis. He had severely enlarged legs with his lymphedema. After being in the ER, temperature sustained. Blood cultures were done. White cell count was normal. Hemoglobin was 12.5. Urinalysis was negative. And he was sent home after ibuprofen, Tylenol and 2 bags of IV fluid. He was feeling much better, and he was Covid negative. Since then, blood cultures have become positive. They were drawn at 2:10 in the morning and 2:45 in the morning and became positive at 4:40 in the afternoon. He was asked to return because of the positive blood cultures. In the emergency room continues to feel well. This evening's temperature is 36.5. He is 98% on room air. Blood pressure 123/74. He continues to have a negative review of systems. He states he feels so much better than yesterday. He wants to make sure we give him eplerinone and not spironolactone for his legs because spironolactone gives him gynecomastia. As such, the patient has been placed in Observation. We will start him on empiric gram-negative coverage, we will try to discover the source of his bacteremia. His criteria for admission is the bacteremia and fever. Addendum: CT of the abdomen and pelvis shows a normal bladder and prostate. Findings include moderate stranding retroperitoneal fluid anterior to the left psoas muscle extending inferiorly into the pelvis. Mild left retroperitoneal and inguinal adenopathy. He spiked another fever. Nursing and I spent a careful exam of his legs. Not only are they massively edematous, he seems to be having a creeping cellulitis coming up the left leg above the knee in an irregular patchy pattern. Skin is now red, hot to touch. We will change antibiotics from Levaquin to Zosyn. - HOSPITAL COURSE Hospital Course: (1) Gram-negative bacteremia Initial blood cultures grew Pasteurella and repeat cultures were negative to date. He was started on Zosyn IV and continued to have low-grade fevers. His white count remained normal and his CRP was trending down. A Hospitalist spoke with Infectious Disease specialist at the [facility], for advice about the patient's persistent fevers. They discussed the patient's hospital course and ID agreed with continuing IV antibiotics until the patient is fever- free. They felt that a work-up for endocarditis was not warranted at this time. They recommended a total of 2 weeks of therapy and to continue on Zosyn IV and switch to p.o. Augmentin once he is fever-free to complete 2 weeks of therapy. He was discharged on Augmentin and probiotics. (2) Cellulitis of left lower extremity This improved on a daily basis, compared to admission. His low-grade fevers resolved after many days. His white count remained normal and his CRP trended down (3) Pulmonary vascular congestion We continued his home diuretics. He was on room air and felt improvement. An Echocardiogram was done, results showed low-normal LVEF of 50-55% and Right heart dilation with pulm HTN. (4) Cor pulmonale His Echo showed Cor pulmonale with pulm HTN. This is possibly from obesity- hypoventilation syndrome. Please follow-up with completion of the sleep study, that he describes was previously planned but postponed due to COVID. (5) Lymphedema This is a chronic problem for the patient. His legs are quite edematous and he now needed treatment for left lower extremity cellulitis. A duplex Doppler of lower extrem was done to evaluate for DVT which was negative for DVT. We placed him on a low-sodium diet and recommended leg elevation. We continued his home diuretics. We also discontinued the Amlodipine as this can contribute to lower extremity edema, and he was advised to stop it after DCh. The verrucas, thick growth of the skin on the R posterior delgadillo was punch biopsied before discharge and sent to Pathology. (6) Controlled type 2 diabetes mellitus without complication, without long-term current use of insulin His blood glucose were well controlled throughout his stay. We ordered a carb controlled diet and sliding scale Insulin. He may resume his Metformin and Trulicity after discharge. (7) Hypertension His blood pressure was well controlled, even off the Amlodipine, which we stopped, given the lower extremity edema. His other current regimen was continued. - ALLERGIES Allergies/Adverse Reactions: Allergies Allergy/AdvReac Type Severity Reaction Status Date / Time No Known Drug Allergies Allergy Verified 04/13/21 18:40 - MEDICATIONS Home Medications: Ambulatory Orders Medication Instructions Recorded Confirmed Dulaglutide [Trulicity] 3 mg IM PRN PRN 04/13/21 04/13/21 Eplerenone [Inspra] 25 mg PO DAILY 04/13/21 04/13/21 Furosemide [Lasix] 40 mg PO DAILY 04/13/21 04/13/21 Losartan [Cozaar] 50 mg PO DAILY 04/13/21 04/13/21 Metoprolol Succinate [Kapspargo 100 mg PO DAILY 04/13/21 04/13/21 Sprinkle] Rosuvastatin Calcium [Crestor] 20 mg PO DAILY 04/13/21 04/13/21 cloNIDine 0.2 MG PATCH 1 patch TOP PRN PRN 04/13/21 04/13/21 [[id number]] metFORMIN [Glucophage] 500 mg PO DAILY 04/13/21 04/13/21 Amox/Clav 875/125 [Augmentin 1 tablet PO Q12H 10 Days #16 tablet 04/19/21 875/125 Tab] Lactobacillus Rhamnosus GG 1 cap PO DAILY #8 cap 04/19/21 [Culturelle] - PHYSICAL EXAM AT DISCHARGE General Appearance: positive: No acute distress, Alert Eyes Bilateral: positive: Normal inspection, EOMI ENT: positive: ENT inspection nml, No signs of dehydration Neck: positive: Nml inspection, Other (Obese and cannot eval JVP) Respiratory: positive: No respiratory distress Cardiovascular: positive: Other (Distant heart sounds due to obesit) Abdomen: positive: Non-tender (Obese with a pannus) Skin: positive: Warm, Dry, Puncture wound (The posterior shins have a verrucous thick growth, it was punch biopsied on the R.) Extremities: positive: Other (2+ edema to thighs, shins bandaged. The posterior shins have a verrucous thick growth.) Neurologic/Psychiatric: positive: Oriented x3 (Non-focal) - LABS Result Diagrams: 04/19/21 04:58 04/19/21 04:58 - DIAGNOSTIC IMAGING Diagnostic Imaging Results: Final report reviewed (On 05-[address] abdomen showed a small left perinephric fluid and retroperitoneal fluid collection, nonspecific) - FOLLOW UP Follow Up: Patient was told to see PCP in 1 to 2 weeks, at approximately the 1 week louie, his suture needs to be removed. - TIME SPENT Time Spent in Discharge (Minutes): 45
== END 2021-04-19 14:00 | disposition home or self-care (01) | DRG 603 ==
LOC: ED 18:36 → MS3 20:49 → OBSVTOIN 04-14 08:35
PROVIDERS: ADMIT Specialist; ATTEND Internal Medicine
PROC: 0HBKXZX Excision of Right Lower Leg Skin, External Approach, Diagnostic (ICD-10-PCS; principal; 2021-04-18)
DX: L03.116 Cellulitis of left lower limb (principal); Z68.43 Body mass index [BMI] 50.0-59.9, adult; E66.2 Morbid (severe) obesity with alveolar hypoventilation; I11.9 Hypertensive heart disease without heart failure; I27.29 Other secondary pulmonary hypertension; I89.0 Lymphedema, not elsewhere classified; E11.9 Type 2 diabetes mellitus without complications; E87.6 Hypokalemia; L01.03 Bullous impetigo; E78.5 Hyperlipidemia, unspecified; M19.90 Unspecified osteoarthritis, unspecified site; Z74.09 Other reduced mobility; Z79.84 Long term (current) use of oral hypoglycemic drugs; Z79.899 Other long term (current) drug therapy
CPT/HCPCS: 36415; 71045; 74177; 80048; 80053; 81001; 83036; 83605; 83735; 84153; 84154; 85025; 85610; 85651; 86140; 87040; 93306; 93970; 96365; 99283; 99285; A9270; G0378; J1650; Q9967; 87086

== ENCOUNTER 2021-08-21 08:00 | Outpatient (CLI) | payer OTHER ==
[2021-08-21 18:51] LABS: BASOPHILS % (AUTO) 0.6 %; EOSINOPHILS # (AUTO) 0.3 10^3/uL (0.0-0.7); EOSINOPHILS % (AUTO) 4.2 %; HCT - HEMATOCRIT 43.2 % (42.0-52.0); HGB - HEMOGLOBIN 13.4 g/dL (14.0-18.0); LYMPHOCYTES # (AUTO) 2.3 10^3/uL (1.5-3.5); LYMPHOCYTES % (AUTO) 34.4 %; MEAN CORPUSCULAR HEMOGLOBIN 26.9 pg (27.0-31.0); MEAN CORPUSCULAR VOLUME 86.6 fL (80.0-94.0); MEAN PLATELET VOLUME 11.4 fL (7.4-11.4); MONOCYTES # (AUTO) 0.6 10^3/uL (0.0-1.0); MONOCYTES % (AUTO) 9.6 %; NEUTROPHILS # (AUTO) 3.4 10^3/uL (1.5-6.6); NEUTROPHILS % (AUTO) 50.9 %; PLT - PLATELET COUNT 215 10^3/uL (130-450); RED BLOOD COUNT 4.99 10^6/uL (4.70-6.10); RED CELL DISTRIBUTION WIDTH 14.8 % (12.0-15.0); WHITE BLOOD COUNT 6.7 x10^3/uL (4.8-10.8)
[2021-08-21 19:05] LABS: CALCIUM 9.7 mg/dL (8.5-10.3); CARBON DIOXIDE - CO2 30 mmol/L (21-32); CHLORIDE 103 mmol/L (101-111); GLUCOSE 102 mg/dL (70-100); POTASSIUM 3.7 mmol/L (3.5-5.0); SODIUM 140 mmol/L (135-145)
[2021-08-21 19:27] LABS: CREATININE,URINE 129.7 mg/dL; MICROALBUM/CREATININE RATIO,UR 32.4 ug/mg (<30.0); MICROALBUMIN,URINE 4.2 mg/dL (0-300.0)
[2021-08-21 20:01] LABS: BUN - BLOOD UREA NITROGEN 16 mg/dL (6-20); CHOL/HDL RATIO 3.1 (<5.0); CHOLESTEROL 95 mg/dL; CREATININE 0.9 mg/dL (0.6-1.2); GFR - MDRD 85 (>89); HDL CHOLESTEROL 31 mg/dL; LDL CHOLESTEROL,CALCULATED 37 mg/dL; LDL/HDL RATIO 1.2 (<3.6); TRIGLYCERIDES 133 mg/dL; VLDL CHOLESTEROL 27 mg/dL
[2021-08-21 23:36] LABS: ESTIMATED AVERAGE GLUCOSE 120 mg/dL (70-100); HEMOGLOBIN A1c% 5.8 % (4.27-6.07)
== END 2021-08-21 23:59 ==
LOC: LAB.WCP 08:00
PROVIDERS: ATTEND Internal Medicine
DX: E11.628 Type 2 diabetes mellitus with other skin complications (principal)
CPT/HCPCS: 36415; 80048; 80061; 82043; 82570; 83036; 83721; 85025

== ENCOUNTER 2022-03-08 20:55 | Inpatient (IN) | payer MEDICARE, OTHER ==
[2022-03-08 21:27] LABS: BASOPHILS % (AUTO) 0.2 %; EOSINOPHILS % (AUTO) 0.2 %; HCT - HEMATOCRIT 37.5 % (42.0-52.0); HGB - HEMOGLOBIN 12.2 g/dL (14.0-18.0); LYMPHOCYTES # (AUTO) 0.6 10^3/uL (1.5-3.5); LYMPHOCYTES % (AUTO) 5.2 %; MEAN CORPUSCULAR HEMOGLOBIN 27.9 pg (27.0-31.0); MEAN CORPUSCULAR HGB CONC 32.5 g/dL (32.0-36.0); MEAN CORPUSCULAR VOLUME 85.8 fL (80.0-94.0); MONOCYTES # (AUTO) 0.7 10^3/uL (0.0-1.0); MONOCYTES % (AUTO) 6.8 %; NEUTROPHILS # (AUTO) 9.4 10^3/uL (1.5-6.6); NEUTROPHILS % (AUTO) 87.1 %; PLT - PLATELET COUNT 210 10^3/uL (130-450); RED BLOOD COUNT 4.37 10^6/uL (4.70-6.10); RED CELL DISTRIBUTION WIDTH 13.8 % (12.0-15.0); WHITE BLOOD COUNT 10.8 x10^3/uL (4.8-10.8)
[2022-03-08] MEDS ORDERED: AZITHROMYCIN INJ 500 MG in SODIUM CHLORIDE 0.9% 250 ML IV STA (21:28)
[2022-03-08] MEDS ORDERED: cefTRIAXone 2 GM in SODIUM CHLORIDE 0.9% MINIBAG 100 ML IV STA (21:28)
[2022-03-08 21:36] LABS: BILIRUBIN,URINE NEGATIVE (NEGATIVE); GLUCOSE, URINE (UA) NEGATIVE (NEGATIVE); KETONES,URINE (UA) NEGATIVE (NEGATIVE); LEUKOCYTE ESTERASE, URINE NEGATIVE (NEGATIVE); NITRITE,URINE NEGATIVE (NEGATIVE); OCCULT BLOOD,URINE NEGATIVE (NEGATIVE); PH,URINE 7.5 PH (5.0-7.5); PROTEIN,URINE NEGATIVE (NEGATIVE); UROBILINOGEN,URINE 1 (NORMAL) E.U./dL (NORMAL)
[2022-03-08 21:38] LABS: CLARITY,URINE CLEAR (CLEAR)
--- NOTE | 2022-03-08 21:40 | XRAY Report ---
PROCEDURE: Chest 1 View X-Ray INDICATIONS: FEVER, DYSPNEA TECHNIQUE: One view of the chest was acquired. COMPARISON: 04/15/2021 FINDINGS: Surgical changes and devices: None. Lungs and pleura: Prominent interstitial markings. No consolidation. No pleural effusion or pneumotho rax. Mediastinum: Mediastinal contours appear normal. Heart size is normal. Bones and chest wall: No suspicious bony lesions. Overlying soft tissues appear unremarkable. IMPRESSION: Prominent interstitial markings may represent atypical infection or interstitial pulmonary edema. Cor relate with CBC and BNP. Reviewed by: Baldev Faith MD on 03/08/2022 9:39 PM PDT Approved by: Baldev Faith MD on 03/08/2022 9:39 PM PDT Station ID: [id number]
[2022-03-08 21:45] LABS: WBC,URINE 0-3 /HPF (0-3)
[2022-03-08 21:46] LABS: BACTERIA,URINE None Seen /HPF (None Seen); RBC,URINE None Seen /HPF (0-5); SQUAMOUS EPITHELIAL CELL,UR FEW Squamous (<= Few)
[2022-03-08 21:48] LABS: ALBUMIN/GLOBULIN RATIO 1.1 (1.0-2.2); BILIRUBIN,TOTAL 0.7 mg/dL (0.2-1.0); CALCIUM 9.2 mg/dL (8.5-10.3); CREATININE 1.1 mg/dL (0.6-1.2); POTASSIUM 3.5 mmol/L (3.5-5.0); TOTAL PROTEIN 7.5 g/dL (6.7-8.2)
[2022-03-08] MEDS ORDERED: cefTRIAXone 2 GM VIAL ONE (21:48)
[2022-03-08 22:43] LABS: B. PARAPERTUSSIS- RESP PCR PAN NOT DETECTED; B. PERTUSSIS- RESP PCR PANEL NOT DETECTED; C. PNEUMONIAE- RESP PCR PANEL NOT DETECTED; CORONAVIRUS 229E-RESP PCR NOT DETECTED; CORONAVIRUS HKU1-RESP PCR NOT DETECTED; CORONAVIRUS NL63-RESP PCR NOT DETECTED; CORONAVIRUS OC43-RESP PCR NOT DETECTED; HUMAN METAPNEUMOVIRUS NOT DETECTED; INFLUENZA A- RESP PCR PANEL NOT DETECTED; INFLUENZA B - RESP PCR PANEL NOT DETECTED; M. PNEUMONIAE- RESP PCR PANEL NOT DETECTED; PARAINFLUENZA VIRUS 1 NOT DETECTED; PARAINFLUENZA VIRUS 2 NOT DETECTED; PARAINFLUENZA VIRUS 3 NOT DETECTED; PARAINFLUENZA VIRUS 4 NOT DETECTED; RHINOVIRUS/ENTEROVIRUS NOT DETECTED; RSV- RESP PCR PANEL NOT DETECTED; SARS-CoV-2 -RESP PCR PANEL NOT DETECTED
[2022-03-08] MEDS ORDERED: ACETAMINOPHEN 325 MG TABLET PO STA (22:58)
--- NOTE | 2022-03-08 22:58 | ED Physician Documentation ---
PD HPI ALTERED MENTAL STATUS - Stated complaint Stated Complaint: FEVER,SOA - Chief complaint Chief Complaint: Fever - History obtained from History obtained from: Patient, Family - History of Present Illness Timing - onset: Today - Additional information Additional information: 66-year-old male with history of hypertension, diabetes, chronic bilateral lower extremity edema, obesity presents by private vehicle for 1 day of high fever of 104 at home, shortness of breath, altered mental status per . Patient was in his usual state of health when he began to experience chills. His stated that she noticed he was confused and driving erratically, she made him gut puller to the side of the road to switch places with him. She states that he has a history of sepsis from cellulitis, when she went home she checked his legs and they appeared normal to her. Patient was endorsing shortness of breath with exertion and with the fever and altered mental status she brought him in for evaluation. Review of Systems Ten Systems: 10 systems reviewed and negative Constitutional: reports: Fever, Chills Cardiac: denies: Chest pain / pressure Respiratory: reports: Dyspnea. denies: Cough, Wheezing Neurologic: reports: Altered mental status (PER ). denies: Generalized weakness, Focal weakness PD PAST MEDICAL HISTORY - Past Medical History Cardiovascular: Hypertension, High cholesterol Respiratory: Sleep apnea Neuro: None Endocrine/Autoimmune: Type 2 diabetes GI: None : Other (erectile dysfunction) Musculoskeletal: Osteoarthritis (w bunions) Derm: Other (urticaria January 2012, [place], eczema, groin intertrigo, leg impetigo) - Past Surgical History Past Surgical History: Yes General: Cholecystectomy, Appendectomy, Hiatal hernia repair, Colonoscopy (October 2008 and normal), Other (Umbilical hernia repair with mesh) Ortho: Other (Right foot ganglion cyst, left bunionectomy) HEENT: Cataracts, Detached retina repair, Tonsil/Adenoidectomy - Present Medications Home Medications: Ambulatory Orders Medication Instructions Recorded Confirmed Dulaglutide [Trulicity] 3 mg IM PRN PRN 04/13/21 09/27/21 Eplerenone [Inspra] 25 mg PO DAILY 04/13/21 09/27/21 Furosemide [Lasix] 40 mg PO DAILY 04/13/21 09/27/21 Losartan [Cozaar] 50 mg PO DAILY 04/13/21 09/27/21 Metoprolol Succinate [Kapspargo 100 mg PO DAILY 04/13/21 09/27/21 Sprinkle] Rosuvastatin Calcium [Crestor] 20 mg PO DAILY 04/13/21 09/27/21 cloNIDine 0.2 MG PATCH 1 patch TOP PRN PRN 04/13/21 09/27/21 [[id number]] metFORMIN [Glucophage] 500 mg PO DAILY 04/13/21 09/27/21 Lactobacillus Rhamnosus GG 1 cap PO DAILY #8 cap 04/19/21 09/27/21 [Culturelle] - Allergies Allergies/Adverse Reactions: Allergies Allergy/AdvReac Type Severity Reaction Status Date / Time No Known Drug Allergies Allergy Verified 03/08/22 21:07 - Social History Does the pt smoke?: No Smoking Status: Never smoker Does the pt drink ETOH?: No - Immunizations Immunizations are current?: No Immunizations: TDAP >10years/unknown - POLST Patient has POLST: No POLST Status: Full Code PD ED PE NORMAL - Vitals Vital signs reviewed: Yes - General General: Alert and oriented X 3, No acute distress, Well developed/nourished - HEENT HEENT: Atraumatic, PERRL, EOMI, Ears normal - Neck Neck: Supple, no meningeal sign, No bony TTP, No adenopathy - Cardiac Cardiac: RRR, No murmur, Strong equal pulses - Respiratory Respiratory: No respiratory distress, Other (R sided inspiratory crackles) - Abdomen Abdomen: Soft, Non tender, Non distended - Back Back: No CVA TTP, No spinal TTP - Derm Derm: Normal color, Warm and dry, Other (chronic lymphedema bilateral lower extremities - at baseline per ) - Extremities Extremities: No deformity, No tenderness to palpate, Normal ROM s pain - Neuro Neuro: Alert and oriented X 3, payroll coordinator 2-12 intact, No motor deficit, No sensory deficit, Normal speech - Psych Psych: Normal mood, Normal affect Results - Vitals Vitals: Vital Signs - 24 hr 03/08/22 03/08/22 03/08/22 21:00 21:07 22:02 Temperature 103.1 C H 103.1 C H 37 C Heart Rate 90 90 Respiratory 14 14 Rate Blood Pressure 140/69 H 140/69 H 123/59 L O2 Saturation 95 95 95 07/28/22 07/28/22 22:30 23:00 Temperature 102 C H 36 C L Heart Rate 75 73 Respiratory 21 Rate Blood Pressure 117/62 120/65 O2 Saturation 94 96 Oxygen O2 Source Room air - Labs Labs: Laboratory Tests 03/08/22 03/08/22 03/08/22 21:10 21:10 21:10 WBC 10.8 RBC 4.37 L Hgb 12.2 L Hct 37.5 L MCV 85.8 MCH 27.9 MCHC 32.5 RDW 13.8 Plt Count 210 MPV 10.0 Neut # (Auto) 9.4 H Lymph # (Auto) 0.6 L [place] # (Auto) 0.7 Eos # (Auto) 0.0 Baso # (Auto) 0.0 Absolute Nucleated RBC 0.00 Nucleated RBC % 0.0 Sodium 136 Potassium 3.5 Chloride 100 L Carbon Dioxide 26 Anion Gap 10.0 BUN 16 Creatinine 1.1 Estimated GFR (MDRD) 67 L Glucose 138 H Lactic Acid Calcium 9.2 Total Bilirubin 0.7 AST 23 ALT 21 Alkaline Phosphatase 60 Troponin I High Sens 10.9 B-Natriuretic Peptide Total Protein 7.5 Albumin 4.0 Globulin 3.5 Albumin/Globulin Ratio 1.1 Urine Color Urine Clarity Urine pH Ur Specific [place] Urine Protein Urine Glucose (UA) Urine Ketones Urine Occult Blood Urine Nitrite Urine Bilirubin Urine Urobilinogen Ur Leukocyte Esterase Urine RBC Urine WBC Ur Squamous Epith Cells Urine Bacteria Urine Culture Comments Nasal Adenovirus (PCR) Nasal B. parapertussis DNA (PCR) Nasal Coronavir 229E PCR Nasal Coronavir HKU1 PCR Nasal Coronavir NL63 PCR Nasal Coronavir OC43 PCR Nasal Enterovir/Rhinovir PCR Nasal Influenza B PCR Nasal Influenza A PCR Nasal Parainfluen 1 PCR Nasal Parainfluen 2 PCR Nasal Parainfluen 3 PCR Nasal Parainfluen 4 PCR Nasal RSV (PCR) Nasal B.pertussis DNA PCR Nasal C.pneumoniae (PCR) Foreign Human Metapneumo PCR Nasal M.pneumoniae (PCR) Nasal SARS-CoV-2 (PCR) 03/08/22 03/08/22 03/08/22 21:10 21:19 21:28 WBC RBC Hgb Hct MCV MCH MCHC RDW Plt Count MPV Neut # (Auto) Lymph # (Auto) [place] # (Auto) Eos # (Auto) Baso # (Auto) Absolute Nucleated RBC Nucleated RBC % Sodium Potassium Chloride Carbon Dioxide Anion Gap BUN Creatinine Estimated GFR (MDRD) Glucose Lactic Acid 1.1 Calcium Total Bilirubin AST ALT Alkaline Phosphatase Troponin I High Sens B-Natriuretic Peptide 218 H Total Protein Albumin Globulin Albumin/Globulin Ratio Urine Color YELLOW Urine Clarity CLEAR Urine pH 7.5 Ur Specific [place] 1.015 Urine Protein NEGATIVE Urine Glucose (UA) NEGATIVE Urine Ketones NEGATIVE Urine Occult Blood NEGATIVE Urine Nitrite NEGATIVE Urine Bilirubin NEGATIVE Urine Urobilinogen 1 (NORMAL) Ur Leukocyte Esterase NEGATIVE Urine RBC None Seen Urine WBC 0-3 Ur Squamous Epith Cells FEW Squamous Urine Bacteria None Seen Urine Culture Comments NOT INDICATED Nasal Adenovirus (PCR) Nasal B. parapertussis DNA (PCR) Nasal Coronavir 229E PCR Nasal Coronavir HKU1 PCR Nasal Coronavir NL63 PCR Nasal Coronavir OC43 PCR Nasal Enterovir/Rhinovir PCR Nasal Influenza B PCR Nasal Influenza A PCR Nasal Parainfluen 1 PCR Nasal Parainfluen 2 PCR Nasal Parainfluen 3 PCR Nasal Parainfluen 4 PCR Nasal RSV (PCR) Nasal B.pertussis DNA PCR Nasal C.pneumoniae (PCR) Foreign Human Metapneumo PCR Nasal M.pneumoniae (PCR) Nasal SARS-CoV-2 (PCR) 03/08/22 21:45 WBC RBC Hgb Hct MCV MCH MCHC RDW Plt Count MPV Neut # (Auto) Lymph # (Auto) [place] # (Auto) Eos # (Auto) Baso # (Auto) Absolute Nucleated RBC Nucleated RBC % Sodium Potassium Chloride Carbon Dioxide Anion Gap BUN Creatinine Estimated GFR (MDRD) Glucose Lactic Acid Calcium Total Bilirubin AST ALT Alkaline Phosphatase Troponin I High Sens B-Natriuretic Peptide Total Protein Albumin Globulin Albumin/Globulin Ratio Urine Color Urine Clarity Urine pH Ur Specific [place] Urine Protein Urine Glucose (UA) Urine Ketones Urine Occult Blood Urine Nitrite Urine Bilirubin Urine Urobilinogen Ur Leukocyte Esterase Urine RBC Urine WBC Ur Squamous Epith Cells Urine Bacteria Urine Culture Comments Nasal Adenovirus (PCR) NOT DETECTED Nasal B. parapertussis DNA (PCR) NOT DETECTED Nasal Coronavir 229E PCR NOT DETECTED Nasal Coronavir HKU1 PCR NOT DETECTED Nasal Coronavir NL63 PCR NOT DETECTED Nasal Coronavir OC43 PCR NOT DETECTED Nasal Enterovir/Rhinovir PCR NOT DETECTED Nasal Influenza B PCR NOT DETECTED Nasal Influenza A PCR NOT DETECTED Nasal Parainfluen 1 PCR NOT DETECTED Nasal Parainfluen 2 PCR NOT DETECTED Nasal Parainfluen 3 PCR NOT DETECTED Nasal Parainfluen 4 PCR NOT DETECTED Nasal RSV (PCR) NOT DETECTED Nasal B.pertussis DNA PCR NOT DETECTED Nasal C.pneumoniae (PCR) NOT DETECTED Foreign Human Metapneumo PCR NOT DETECTED Nasal M.pneumoniae (PCR) NOT DETECTED Nasal SARS-CoV-2 (PCR) NOT DETECTED PD MEDICAL DECISION MAKING - ED course Complexity details: reviewed old records, reviewed results, re-evaluated patient, considered differential, d/w patient, d/w family ED course: Patient presenting for fever, shortness of breath, altered mental status per . Currently alert and oriented x3, patient is very febrile per triage vitals. Hemodynamically stable, does have crackles on inspiration on the right side. Will empirically treat as sepsis with Rocephin and azithromycin, blood cultures drawn. Chest x-ray shows infiltrate versus edema. BNP is less than 500, patient's white count is within normal limits but does have left shift. Respiratory viral panel is negative for flu, COVID, other viral strains. Patient's PSI score 100, would benefit from inpatient abx. Departure - Departure Disposition: ED Place in Observation Clinical Impression: Pneumonia, Sepsis, Edema Condition: Stable Discharge Date/Time: 03/09/22 00:36
[2022-03-08] MEDS ORDERED: ONDANSETRON 4 MG/2 ML VIAL IVP PRN (23:24)
[2022-03-08] MEDS ORDERED: ACETAMINOPHEN 325 MG TABLET PO PRN (23:24)
[2022-03-08] MEDS ORDERED: SODIUM CHLORIDE FLUSH 0.9% 10 ML SYRINGE IVP PRN (23:24)
--- NOTE | 2022-03-08 23:38 | HISTORY & PHYSICAL EXAMINATION ---
Chief Complaint - Chief Complaint Chief Complaint: Fever, confusion History of Present Illness - Admitted From Admitted From:: ED - History Obtained From Records Reviewed: Yes History obtained from: ED provider - History of Present Illness HPI Comment/Other: This is a 66-year-old white male who lives at home with his . He has a history of morbid obesity (BMI 48), Diabetes mellitus on Metformin and Trulicity, chronic leg edema, and hypertension. He was admitted here in April 2021 for cellulitis with gram neg bacteremia and had presented then with a high fever and altered mental status. The patient is brought in now by his who reports that he became confused today, was driving erratically and also had chills and a fever. She told him to sample puller and when got home checked his legs for cellulitis, found nothing but brought him to the ER due to fever and confusion. Work-up in the ED showed that he has shortness of breath, normal white blood count but a left shift present and chest x-ray that has been read as having atypical infiltrate versus volume overload. He has a temperature of 103.3F in the ED, normal respiratory rate and is not desaturating, and has a normal heart rate and blood pressure. In the ED, blood cultures x2 were drawn and he was given Tylenol, iv Ceftriaxone and iv Zithromax and the Hospitalist team was contacted for further management given his ongoing altered mental status. This patient's PSI score is calculated at III (Intermediate risk). History - Past Medical History Cardiovascular: reports: Hypertension, High cholesterol Respiratory: reports: Sleep apnea Neuro: reports: None Endocrine/Autoimmune: reports: Type 2 diabetes GI: reports: None : reports: Other (erectile dysfunction) Musculoskeletal: reports: Osteoarthritis (w bunions) Derm: reports: Other (urticaria January 2012, [place], eczema, groin intertrigo, leg impetigo) MRSA Hx?: Yes - Past Surgical History General: reports: Cholecystectomy, Appendectomy, Hiatal hernia repair, Colonoscopy (October 2008 and normal), Other (Umbilical hernia repair with mesh) Ortho: reports: Other (Right foot ganglion cyst, left bunionectomy) HEENT: reports: Cataracts, Detached retina repair, Tonsil/Adenoidectomy - Family & Social History Family History Comment/Other: Mother had high blood pressure and prediabetes, of massive skin infections of legs in her 90s in this hospital. Dad had high blood pressure, [place], and diabetes and at the age of 75. 2 brothers. Both have hypertension. 3 children. Son w VSD and repair. Daughter w melanoma on treatment right now. Son with HTN Living arrangement: At home Living Situation: With spouse/s.o. Social History Notes: He has never smoked. No history of alcohol abuse and never drinks. No history of recreational substance abuse. over 40 years to his first . Originally from [place] but was in the [place] for many decades. Traveled between [facility] and [place] for the [employer]. 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 He has been without work for about a year and a half and is still looking for work. - Substance History Use: Uses substance without health or social issues: NONE - POLST Patient has POLST: No POLST Status: Full Code Meds/Allgy - Home Medications Home Medications: Ambulatory Orders Medication Instructions Recorded Confirmed Dulaglutide [Trulicity] 3 mg IM PRN PRN 04/13/21 09/27/21 Eplerenone [Inspra] 25 mg PO DAILY 04/13/21 09/27/21 Furosemide [Lasix] 40 mg PO DAILY 04/13/21 09/27/21 Losartan [Cozaar] 50 mg PO DAILY 04/13/21 09/27/21 Metoprolol Succinate [Kapspargo 100 mg PO DAILY 04/13/21 09/27/21 Sprinkle] Rosuvastatin Calcium [Crestor] 20 mg PO DAILY 04/13/21 09/27/21 cloNIDine 0.2 MG PATCH 1 patch TOP PRN PRN 04/13/21 09/27/21 [[id number]-1] metFORMIN [Glucophage] 500 mg PO DAILY 04/13/21 09/27/21 Lactobacillus Rhamnosus GG 1 cap PO DAILY #8 cap 04/19/21 09/27/21 [Culturelle] - Allergies Allergies/Adverse Reactions: Allergies Allergy/AdvReac Type Severity Reaction Status Date / Time No Known Drug Allergies Allergy Verified 03/08/22 21:07 Review of Systems - Respiratory Respiratory: reports: Other (At the April 2021 admission, he was about to undergo a sleep study to evaluate for BERNARDO. He has not gone to be tested yet.) - Integumentary Integumentary: reports: Other (Open wound of R lateral thigh happened today.) - All Other Systems All Other Systems: reports: Reviewed and negative Exam - Vital Signs Vital Signs: Vital Signs x48h Temp Pulse Resp BP Pulse Ox 03/08/22 23:00 36 C L 73 120/65 96 03/08/22 22:30 102 C H 75 21 117/62 94 03/08/22 22:02 37 C 123/59 L 95 03/08/22 21:07 103.1 C H 90 14 140/69 H 95 03/08/22 21:00 103.1 C H 90 14 140/69 H 95 - Physical Exam General Appearance: positive: No acute distress, Alert Eyes Bilateral: positive: Normal inspection, EOMI ENT: positive: ENT inspection nml, No signs of dehydration Neck: positive: Other (Obese and cannot evaluate JVP) Respiratory: positive: No respiratory distress, Breath sounds nml Cardiovascular: positive: Regular rate & rhythm, No murmur Abdomen: positive: Non-tender, Nml bowel sounds, No distention, Other (Obese with a pannus) Skin: positive: Warm, Dry Extremities: positive: Other (4+ edema with folds and verrucae of both lower legs, both with venous stasis changes on shins. 2 small superficial wounds with red base on lateral R lower leg.) Conclusion/Plan - Problem List (1) AMS (altered mental status) Conclusion/Plan: This is most likely due to his fever, since his presentation is very similar to when he had sepsis, gram neg bacteremia and cellulitis 9 mos ago. He has already improved since treatment was started in the ER. Will place the patient in Observation, on telemetry to treat. Will empirically treat for the presumed source of the fever, with iv fluids and iv antibx. (2) Fever Conclusion/Plan: The presumed source of the fever is a community-acquired pneumonia, however he does not have typical findings of consolidation on CXR or and elevated WBC. The wounds of the R lower leg could be a source also, but do not look angry or pussy and have no surrounding redness or warmth of skin to consider cellulitis. Will ask that RN do a wound culture and take images, then bandage the wound of R leg. Will start empiric IV antibiotics using ceftriaxone and Zithromax. Await blood culture results and order sputum cultures if he makes sputum. Give prn supplemental O2 to keep saturations over 90%; but currently he is saturating at 95% on room air. Follow CBC daily. Check CRP today and follow CRP daily as well. (3) DM type 2 (diabetes mellitus, type 2) Conclusion/Plan: Will order a carb controlled diet, fingerstick checks and sliding scale insulin coverage. Check A1c with morning labs. Will not give the metformin while here as he may need to get imaging with contrast agents. Metformin and Trulicity can be re-started after DCh. (4) Chronic edema Conclusion/Plan: He has chronic leg edema versus lymphedema. He is on beta-roxane, ARB, eplerenone (substitute for spironolactone) and home Lasix. This combination of medications points to him possibly having systolic heart failure however at the last hospitalization 9 months ago he had an echo that showed EF of 55%. Because of the fever, will give about a day of IV fluids at a very low TKO rate. Follow his BNP and electrolytes daily. We will continue his beta-roxane and losartan, but hold the Lasix and Eplerenone for now, until med list is reconciled and while he is getting 1 day of very gentle iv hydration. (5) Morbid obesity with BMI of 45.0-49.9, adult Conclusion/Plan: As per Hx. - Lab Results Fish Bones: 03/08/22 21:10 03/08/22 21:10 - Diagnostic Imaging Results Diagnostic Imaging Results: positive: Final report reviewed
[2022-03-08] MEDS ORDERED: D5NS W/20 MEQ KCL 1,000 ML IV SCH (23:45)
[2022-03-09] MEDS: SODIUM CHLORIDE FLUSH 0.9% 10 ML SYRINGE IVP SCH ×3 (00:26→16:42)
[2022-03-09 05:25] LABS: BASOPHILS % (AUTO) 0.1 %; EOSINOPHILS % (AUTO) 0.1 %; LYMPHOCYTES # (AUTO) 0.9 10^3/uL (1.5-3.5); LYMPHOCYTES % (AUTO) 11.2 %; MEAN CORPUSCULAR HEMOGLOBIN 27.1 pg (27.0-31.0); MEAN CORPUSCULAR HGB CONC 31.4 g/dL (32.0-36.0); MEAN CORPUSCULAR VOLUME 86.2 fL (80.0-94.0); MEAN PLATELET VOLUME 10.2 fL (7.4-11.4); MONOCYTES # (AUTO) 0.6 10^3/uL (0.0-1.0); MONOCYTES % (AUTO) 6.8 %; NEUTROPHILS # (AUTO) 6.9 10^3/uL (1.5-6.6); NEUTROPHILS % (AUTO) 81.3 %; PLT - PLATELET COUNT 162 10^3/uL (130-450); RED BLOOD COUNT 4.06 10^6/uL (4.70-6.10); RED CELL DISTRIBUTION WIDTH 14.2 % (12.0-15.0); WHITE BLOOD COUNT 8.4 x10^3/uL (4.8-10.8)
[2022-03-09 05:44] LABS: CALCIUM 8.5 mg/dL (8.5-10.3); CRP - C-REACTIVE PROTEIN 7.3 mg/dL (0-1.0); MAGNESIUM 1.9 mg/dL (1.7-2.8); PHOSPHORUS 3.2 mg/dL (2.5-4.6); POTASSIUM 3.2 mmol/L (3.5-5.0)
--- NOTE | 2022-03-09 08:04 | PROVIDER PROGRESS NOTE ---
Assessment/Plan - Problem List (1) Cellulitis Qualifiers: Site of cellulitis: extremity Site of cellulitis of extremity: lower extremity Laterality: right Qualified Code(s): L03.115 - Cellulitis of right lower limb Assessment/Plan: Preliminary blood cultures growing gram-negative rods. Patient is on Rocephin 2 g IV daily. We will continue. Will await final results on blood and wound cultures. (2) Chronic edema Assessment/Plan: Beta-roxane and losartan continued. Lasix and eplerenone held for now. Continue gentle IV hydration for 1 day. (4) Morbid obesity with BMI of 45.0-49.9, adult Assessment/Plan: BMI is 48. - Current Meds Current Meds: Current Medications Generic Name Dose Route Start Last Admin Trade Name Freq PRN Reason Stop Dose Admin Potassium Chloride/Dextrose/Sod Cl 1,000 mls @ 0 mls/hr 03/08/22 23:45 03/09/22 00:26 D5ns W/20 Meq Kcl IV 03/09/22 17:44 20 mls/hr .Q0M BALIJT Administration TKO Sodium Chloride 10 ml 03/09/22 01:00 03/09/22 00:26 Sodium Chloride Flush 0.9% 10 Ml Syringe IVP 10 ml 0100,0900,1700 BALJIT Administration - Lab Result Fish Bone Diagrams: 03/09/22 05:12 03/09/22 05:12 - Additional Planning My Orders: My Active Orders 03/09/22 09:00 cefTRIAXone [Rocephin] 2 gm Sodium Chloride 0.9% Minibag [Normal Saline 0.9% Minibag] 100 ml IV DAILY Subjective - Subjective Patient Reports: Other (He was resting comfortably in bed at time of exam. Denied any pain. Denied dyspnea, chest pain, abdominal pain, nausea, vomiting. Right lower extremity appears erythematous and is warm to touch beyond markings from previous day. Hyperkeratotic verrucous plaques consistent with lymphedema noted) Objective Vital Signs: Vital Signs - 24 hr 03/08/22 03/08/22 03/08/22 21:00 21:07 22:02 Temperature 103.1 C H 103.1 C H 37 C Heart Rate 90 90 Heart Rate [ Brachial] Respiratory 14 14 Rate Blood Pressure 140/69 H 140/69 H 123/59 L Blood Pressure [Right Brachial artery] O2 Saturation 95 95 95 03/08/22 03/08/22 03/09/22 22:30 23:00 00:24 Temperature 102 C H 36 C L 38.8 C H Heart Rate 75 73 Heart Rate [ 78 Brachial] Respiratory 21 22 Rate Blood Pressure 117/62 120/65 Blood Pressure 120/52 L [Right Brachial artery] O2 Saturation 94 96 94 03/09/22 03/09/22 05:17 07:33 Temperature 37.9 C 37.7 C Heart Rate Heart Rate [ 66 63 Brachial] Respiratory 18 18 Rate Blood Pressure Blood Pressure 116/53 L 119/49 L [Right Brachial artery] O2 Saturation 95 93 Oxygen O2 Source Room air I&O (Last 24 Hrs): Intake and Output Totals x24h 03/07/22 03/08/22 03/09/22 23:59 23:59 23:59 Intake Total 350 350 Output Total 400 Balance 350 -50 General: Alert, Oriented x3, No acute distress HEENT: PERRLA, EOMI Neck: Supple, No JVD Neuro: Alert, Oriented Times 3 Cardiovascular: Regular rate, Normal S1, Normal S2 Respiratory: Chest non-tender, No respiratory distress, Breath sounds nml Abdomen: Normal bowel sounds, Soft, Other (obese abdomen) Extremities: Other (Hyperkeratotic verrucous changes on lower extremities bilaterally. Right lower extremity hyperemic and warm to touch. Wound on lateral RLE) - Results Results: Laboratory Results WBC 8.4 x10^3/uL (4.8-10.8) 03/09/22 05:12 RBC 4.06 10^6/uL (4.70-6.10) L 03/09/22 05:12 Hgb 11.0 g/dL (14.0-18.0) L 03/09/22 05:12 Hct 35.0 % (42.0-52.0) L 03/09/22 05:12 MCV 86.2 fL (80.0-94.0) 03/09/22 05:12 MCH 27.1 pg (27.0-31.0) 03/09/22 05:12 MCHC 31.4 g/dL (32.0-36.0) L 03/09/22 05:12 RDW 14.2 % (12.0-15.0) 03/09/22 05:12 Plt Count 162 10^3/uL (130-450) 03/09/22 05:12 MPV 10.2 fL (7.4-11.4) 03/09/22 05:12 Neut # (Auto) 6.9 10^3/uL (1.5-6.6) H 03/09/22 05:12 Lymph # (Auto) 0.9 10^3/uL (1.5-3.5) L 03/09/22 05:12 [place] # (Auto) 0.6 10^3/uL (0.0-1.0) 03/09/22 05:12 Eos # (Auto) 0.0 10^3/uL (0.0-0.7) 03/09/22 05:12 Baso # (Auto) 0.0 10^3/uL (0.0-0.1) 03/09/22 05:12 Absolute Nucleated RBC 0.00 x10^3/uL 03/09/22 05:12 Nucleated RBC % 0.0 /100WBC 03/09/22 05:12 Sodium 136 mmol/L (135-145) 03/09/22 05:12 Potassium 3.2 mmol/L (3.5-5.0) L 03/09/22 05:12 Chloride 100 mmol/L (101-111) L 03/09/22 05:12 Carbon Dioxide 28 mmol/L (21-32) 03/09/22 05:12 Anion Gap 8.0 (6-13) 03/09/22 05:12 BUN 13 mg/dL (6-20) 03/09/22 05:12 Creatinine 1.0 mg/dL (0.6-1.2) 03/09/22 05:12 Estimated GFR (MDRD) 75 (>89) L 03/09/22 05:12 Glucose 112 mg/dL (70-100) H 03/09/22 05:12 Lactic Acid 1.1 mmol/L (0.5-2.2) 03/08/22 21:28 Calcium 8.5 mg/dL (8.5-10.3) 03/09/22 05:12 Phosphorus 3.2 mg/dL (2.5-4.6) 03/09/22 05:12 Magnesium 1.9 mg/dL (1.7-2.8) 03/09/22 05:12 Total Bilirubin 0.7 mg/dL (0.2-1.0) 03/08/22 21:10 AST 23 IU/L (10-42) 03/08/22 21:10 ALT 21 IU/L (10-60) 03/08/22 21:10 Alkaline Phosphatase 60 IU/L (42-121) 03/08/22 21:10 Troponin I High Sens 10.9 ng/L (2.3-19.7) 03/08/22 21:10 C-Reactive Protein 7.3 mg/dL (0-1.0) H 03/09/22 05:12 B-Natriuretic Peptide 256 pg/mL (5-100) H 03/09/22 05:15 Total Protein 7.5 g/dL (6.7-8.2) 03/08/22 21:10 Albumin 4.0 g/dL (3.2-5.5) 03/08/22 21:10 Globulin 3.5 g/dL (2.1-4.2) 03/08/22 21:10 Albumin/Globulin Ratio 1.1 (1.0-2.2) 03/08/22 21:10 Urine Color YELLOW 03/08/22 21:19 Urine Clarity CLEAR (CLEAR) 03/08/22 21:19 Urine pH 7.5 PH (5.0-7.5) 03/08/22 21:19 Ur Specific [place] 1.015 (1.002-1.030) 03/08/22 21:19 Urine Protein NEGATIVE mg/dL (NEGATIVE) 03/08/22 21:19 Urine Glucose (UA) NEGATIVE mg/dL (NEGATIVE) 03/08/22 21:19 Urine Ketones NEGATIVE mg/dL (NEGATIVE) 03/08/22 21:19 Urine Occult Blood NEGATIVE (NEGATIVE) 03/08/22 21:19 Urine Nitrite NEGATIVE (NEGATIVE) 03/08/22 21:19 Urine Bilirubin NEGATIVE (NEGATIVE) 03/08/22 21:19 Urine Urobilinogen 1 (NORMAL) E.U./dL (NORMAL) 03/08/22 21:19 Ur Leukocyte Esterase NEGATIVE (NEGATIVE) 03/08/22 21:19 Urine RBC None Seen /HPF (0-5) 03/08/22 21:19 Urine WBC 0-3 /HPF (0-3) 03/08/22 21:19 Ur Squamous Epith Cells FEW Squamous (<= Few) 03/08/22 21:19 Urine Bacteria None Seen /HPF (None Seen) 03/08/22 21:19 Urine Culture Comments NOT INDICATED 03/08/22 21:19 Nasal Adenovirus (PCR) NOT DETECTED 03/08/22 21:45 Nasal B. parapertussis DNA (PCR) NOT DETECTED 03/08/22 21:45 Nasal Coronavir 229E PCR NOT DETECTED 03/08/22 21:45 Nasal Coronavir HKU1 PCR NOT DETECTED 03/08/22 21:45 Nasal Coronavir NL63 PCR NOT DETECTED 03/08/22 21:45 Nasal Coronavir OC43 PCR NOT DETECTED 03/08/22 21:45 Nasal Enterovir/Rhinovir PCR NOT DETECTED 03/08/22 21:45 Nasal Influenza B PCR NOT DETECTED 03/08/22 21:45 Nasal Influenza A PCR NOT DETECTED 03/08/22 21:45 Nasal Parainfluen 1 PCR NOT DETECTED 03/08/22 21:45 Nasal Parainfluen 2 PCR NOT DETECTED 03/08/22 21:45 Nasal Parainfluen 3 PCR NOT DETECTED 03/08/22 21:45 Nasal Parainfluen 4 PCR NOT DETECTED 03/08/22 21:45 Nasal RSV (PCR) NOT DETECTED 03/08/22 21:45 Nasal B.pertussis DNA PCR NOT DETECTED 03/08/22 21:45 Nasal C.pneumoniae (PCR) NOT DETECTED 03/08/22 21:45 Foreign Human Metapneumo PCR NOT DETECTED 03/08/22 21:45 Nasal M.pneumoniae (PCR) NOT DETECTED 03/08/22 21:45 Nasal SARS-CoV-2 (PCR) NOT DETECTED 03/08/22 21:45 - Procedures Procedures: Procedures EXCISION OF RIGHT LOWER LEG SKIN, EXTERNAL APPROACH, DIAGN (04/14/21) ABX Reporting Has patient been on IV antibiotics over the past 48 hours?: Yes
[2022-03-09] MEDS: ATORVASTATIN 40 MG TABLET PO SCH (09:28)
[2022-03-09] MEDS: LOSARTAN 50 MG TABLET PO SCH (09:29)
[2022-03-09] MEDS: METOPROLOL SUCCINATE 50 MG TABLET PO SCH (09:29)
[2022-03-09] MEDS: ENOXAPARIN 40 MG/0.4 ML SYRINGE SUBQ SCH (09:33)
[2022-03-09] MEDS: INSULIN LISPRO 300 UNIT/3 ML PEN SUBQ SCH ×4 (09:36→21:43)
[2022-03-09 11:56] LABS: ESTIMATED AVERAGE GLUCOSE 120 mg/dL (70-100); HEMOGLOBIN A1c% 5.8 % (4.27-6.07)
[2022-03-09] MEDS ORDERED: POTASSIUM CHLORIDE 20 MEQ TABLET PO ONE (16:44)
--- NOTE | 2022-03-09 18:49 | PHARMACY PROGRESS NOTE ---
- Best Possible Medication History Admit Date and Time: 03/09/22 1248 Processed by: Pharmacy Medication History completed: Yes Patient Interview: Completed Secondary Source(s): Insurance records As the person ultimately responsible for medication therapy, providers are able to order a medication from an existing home medication list in [facility] via the "Reconcile Routine" prior to Confirmation of that medication by senior office support assistant sosa. Such practice is discouraged except when the physician, in their clinical judgment, deems that a medical need exists for a medication without regard to previous use.
[2022-03-09] MEDS: cefTRIAXone 2 GM in SODIUM CHLORIDE 0.9% MINIBAG 100 ML IV SCH (21:37)
[2022-03-10] MEDS: SODIUM CHLORIDE FLUSH 0.9% 10 ML SYRINGE IVP SCH ×3 (00:27→20:50)
--- NOTE | 2022-03-10 08:32 | PROVIDER PROGRESS NOTE ---
Assessment/Plan - Problem List (1) Cellulitis Qualifiers: Site of cellulitis: extremity Site of cellulitis of extremity: lower extremity Laterality: right Qualified Code(s): L03.115 - Cellulitis of right lower limb Assessment/Plan: Blood cultures subsequently grew Enterobacter [place]. There is significant improvement in the redness on the right lower extremity. Continue Rocephin 2 g IV daily. Await sensitivities of blood cultures. (2) Chronic edema Assessment/Plan: Lasix resumed today. Continue losartan and beta-roxane. IV hydration discontinued after 1 day yesterday. (3) DM type 2 (diabetes mellitus, type 2) Assessment/Plan: Accu-Cheks q. ACH S. On sliding scale insulin. (4) Morbid obesity with BMI of 45.0-49.9, adult Assessment/Plan: BMI is 48. - Current Meds Current Meds: Current Medications Generic Name Dose Route Start Last Admin Trade Name Freq PRN Reason Stop Dose Admin Atorvastatin Calcium 40 mg 03/09/22 09:00 03/09/22 09:28 Atorvastatin 40 Mg Tablet PO 40 mg DAILY BALJIT Administration Enoxaparin Sodium 40 mg 03/09/22 09:00 03/09/22 09:33 Enoxaparin 40 Mg/0.4 Ml Syringe SUBQ 40 mg DAILY BALJIT Administration Ceftriaxone Sodium 2 gm/ 100 mls @ 200 mls/hr 03/09/22 21:00 03/09/22 22:07 Sodium Chloride IV Infused Q24H BALJIT Infusion Insulin Human Lispro 1 - 5 unit 03/09/22 08:00 03/09/22 21:43 Insulin Lispro 300 Unit/3 Ml Pen SUBQ Not Given 0800,1200,1700,2100 [facility] Protocol Losartan Potassium 50 mg 03/09/22 09:00 03/09/22 09:29 Losartan 50 Mg Tablet PO 50 mg DAILY BALJIT Administration Metoprolol Succinate 100 mg 03/09/22 09:00 03/09/22 09:29 Metoprolol Succinate 50 Mg Tablet PO 100 mg DAILY BALJIT Administration Sodium Chloride 10 ml 03/09/22 01:00 03/10/22 00:27 Sodium Chloride Flush 0.9% 10 Ml Syringe IVP 10 ml 0100,0900,1700 BALJIT Administration - Lab Result Fish Bone Diagrams: 03/11/22 04:25 03/11/22 04:25 - Additional Planning My Orders: My Active Orders 03/09/22 21:00 cefTRIAXone [Rocephin] 2 gm Sodium Chloride 0.9% Minibag [Normal Saline 0.9% Minibag] 100 ml IV Q24H 03/10/22 08:29 BMP - BASIC METABOLIC PANEL [CHEM] Stat CBC - COMP BLD CT W/AUTO DIFF [HEME] Stat 03/11/22 05:00 BMP - BASIC METABOLIC PANEL [CHEM] DAILYLAB CBC - COMP BLD CT W/AUTO DIFF [HEME] DAILYLAB 03/12/22 05:00 BMP - BASIC METABOLIC PANEL [CHEM] DAILYLAB CBC - COMP BLD CT W/AUTO DIFF [HEME] DAILYLAB 03/13/22 05:00 BMP - BASIC METABOLIC PANEL [CHEM] DAILYLAB CBC - COMP BLD CT W/AUTO DIFF [HEME] DAILYLAB 03/14/22 05:00 BMP - BASIC METABOLIC PANEL [CHEM] DAILYLAB CBC - COMP BLD CT W/AUTO DIFF [HEME] DAILYLAB 03/15/22 05:00 BMP - BASIC METABOLIC PANEL [CHEM] DAILYLAB CBC - COMP BLD CT W/AUTO DIFF [HEME] DAILYLAB Subjective - Subjective Patient Reports: Other (Patient was resting comfortably in bed at time of exam. He denied any significant complaints. Redness is significantly improved on right lower extremity compared to the previous day.) Objective Vital Signs: Vital Signs - 24 hr 03/09/22 03/09/22 03/09/22 11:42 15:53 20:11 Temperature 37.6 C 37.8 C 37.4 C Heart Rate [ 56 L 57 L 53 L Brachial] Respiratory 22 20 22 Rate Blood Pressure 125/51 L 110/56 L 125/48 L [Right Brachial artery] O2 Saturation 96 94 95 03/10/22 03/10/22 03/10/22 00:33 05:27 07:32 Temperature 37.5 C 36.6 C 36.9 C Heart Rate [ 52 L 52 L 53 L Brachial] Respiratory 18 18 20 Rate Blood Pressure 125/47 L 131/55 H 128/63 [Right Brachial artery] O2 Saturation 95 94 90 L Oxygen O2 Source Room air I&O (Last 24 Hrs): Intake and Output Totals x24h 03/08/22 03/09/22 03/10/22 23:59 23:59 23:59 Intake Total 350 3110 956.333 Output Total 2100 675 Balance 350 1010 281.333 Comments/Notes: General: Alert, Oriented x3, No acute distress HEENT: PERRLA, EOMI Neck: Supple, No JVD Neuro: Alert, Oriented Times 3 Cardiovascular: Regular rate, Normal S1, Normal S2 Respiratory: Chest non-tender, No respiratory distress, Breath sounds nml Abdomen: Normal bowel sounds, Soft, Other (obese abdomen) Extremities: Other (Hyperkeratotic verrucous changes on lower extremities bi laterally. Right lower extremity hyperemic and warm significantly improved. Wound on lateral RLE) - Results Results: Laboratory Results WBC 8.4 x10^3/uL (4.8-10.8) 03/09/22 05:12 RBC 4.06 10^6/uL (4.70-6.10) L 03/09/22 05:12 Hgb 11.0 g/dL (14.0-18.0) L 03/09/22 05:12 Hct 35.0 % (42.0-52.0) L 03/09/22 05:12 MCV 86.2 fL (80.0-94.0) 03/09/22 05:12 MCH 27.1 pg (27.0-31.0) 03/09/22 05:12 MCHC 31.4 g/dL (32.0-36.0) L 03/09/22 05:12 RDW 14.2 % (12.0-15.0) 03/09/22 05:12 Plt Count 162 10^3/uL (130-450) 03/09/22 05:12 MPV 10.2 fL (7.4-11.4) 03/09/22 05:12 Neut # (Auto) 6.9 10^3/uL (1.5-6.6) H 03/09/22 05:12 Lymph # (Auto) 0.9 10^3/uL (1.5-3.5) L 03/09/22 05:12 [place] # (Auto) 0.6 10^3/uL (0.0-1.0) 03/09/22 05:12 Eos # (Auto) 0.0 10^3/uL (0.0-0.7) 03/09/22 05:12 Baso # (Auto) 0.0 10^3/uL (0.0-0.1) 03/09/22 05:12 Absolute Nucleated RBC 0.00 x10^3/uL 03/09/22 05:12 Nucleated RBC % 0.0 /100WBC 03/09/22 05:12 Sodium 136 mmol/L (135-145) 03/09/22 05:12 Potassium 3.2 mmol/L (3.5-5.0) L 03/09/22 05:12 Chloride 100 mmol/L (101-111) L 03/09/22 05:12 Carbon Dioxide 28 mmol/L (21-32) 03/09/22 05:12 Anion Gap 8.0 (6-13) 03/09/22 05:12 BUN 13 mg/dL (6-20) 03/09/22 05:12 Creatinine 1.0 mg/dL (0.6-1.2) 03/09/22 05:12 Estimated GFR (MDRD) 75 (>89) L 03/09/22 05:12 Glucose 112 mg/dL (70-100) H 03/09/22 05:12 POC Whole Bld Glucose 96 mg/dL (70 - 100) 03/10/22 07:30 Estimat Average Glucose 120 mg/dL (70-100) H 03/09/22 06:10 Hemoglobin A1c % 5.8 % (4.27-6.07) 03/09/22 06:10 Lactic Acid 1.1 mmol/L (0.5-2.2) 03/08/22 21:28 Calcium 8.5 mg/dL (8.5-10.3) 03/09/22 05:12 Phosphorus 3.2 mg/dL (2.5-4.6) 03/09/22 05:12 Magnesium 1.9 mg/dL (1.7-2.8) 03/09/22 05:12 Total Bilirubin 0.7 mg/dL (0.2-1.0) 03/08/22 21:10 AST 23 IU/L (10-42) 03/08/22 21:10 ALT 21 IU/L (10-60) 03/08/22 21:10 Alkaline Phosphatase 60 IU/L (42-121) 03/08/22 21:10 Troponin I High Sens 10.9 ng/L (2.3-19.7) 03/08/22 21:10 C-Reactive Protein 7.3 mg/dL (0-1.0) H 03/09/22 05:12 B-Natriuretic Peptide 256 pg/mL (5-100) H 03/09/22 05:15 Total Protein 7.5 g/dL (6.7-8.2) 03/08/22 21:10 Albumin 4.0 g/dL (3.2-5.5) 03/08/22 21:10 Globulin 3.5 g/dL (2.1-4.2) 03/08/22 21:10 Albumin/Globulin Ratio 1.1 (1.0-2.2) 03/08/22 21:10 Urine Color YELLOW 03/08/22 21:19 Urine Clarity CLEAR (CLEAR) 03/08/22 21:19 Urine pH 7.5 PH (5.0-7.5) 03/08/22 21:19 Ur Specific [place] 1.015 (1.002-1.030) 03/08/22 21:19 Urine Protein NEGATIVE mg/dL (NEGATIVE) 03/08/22 21:19 Urine Glucose (UA) NEGATIVE mg/dL (NEGATIVE) 03/08/22 21:19 Urine Ketones NEGATIVE mg/dL (NEGATIVE) 03/08/22 21:19 Urine Occult Blood NEGATIVE (NEGATIVE) 03/08/22 21:19 Urine Nitrite NEGATIVE (NEGATIVE) 03/08/22 21:19 Urine Bilirubin NEGATIVE (NEGATIVE) 03/08/22 21:19 Urine Urobilinogen 1 (NORMAL) E.U./dL (NORMAL) 03/08/22 21:19 Ur Leukocyte Esterase NEGATIVE (NEGATIVE) 03/08/22 21:19 Urine RBC None Seen /HPF (0-5) 03/08/22 21:19 Urine WBC 0-3 /HPF (0-3) 03/08/22 21:19 Ur Squamous Epith Cells FEW Squamous (<= Few) 03/08/22 21:19 Urine Bacteria None Seen /HPF (None Seen) 03/08/22 21:19 Urine Culture Comments NOT INDICATED 03/08/22 21:19 Nasal Adenovirus (PCR) NOT DETECTED 03/08/22 21:45 Nasal B. parapertussis DNA (PCR) NOT DETECTED 03/08/22 21:45 Nasal Coronavir 229E PCR NOT DETECTED 03/08/22 21:45 Nasal Coronavir HKU1 PCR NOT DETECTED 03/08/22 21:45 Nasal Coronavir NL63 PCR NOT DETECTED 03/08/22 21:45 Nasal Coronavir OC43 PCR NOT DETECTED 03/08/22 21:45 Nasal Enterovir/Rhinovir PCR NOT DETECTED 03/08/22 21:45 Nasal Influenza B PCR NOT DETECTED 03/08/22 21:45 Nasal Influenza A PCR NOT DETECTED 03/08/22 21:45 Nasal Parainfluen 1 PCR NOT DETECTED 03/08/22 21:45 Nasal Parainfluen 2 PCR NOT DETECTED 03/08/22 21:45 Nasal Parainfluen 3 PCR NOT DETECTED 03/08/22 21:45 Nasal Parainfluen 4 PCR NOT DETECTED 03/08/22 21:45 Nasal RSV (PCR) NOT DETECTED 03/08/22 21:45 Nasal B.pertussis DNA PCR NOT DETECTED 03/08/22 21:45 Nasal C.pneumoniae (PCR) NOT DETECTED 03/08/22 21:45 Foreign Human Metapneumo PCR NOT DETECTED 03/08/22 21:45 Nasal M.pneumoniae (PCR) NOT DETECTED 03/08/22 21:45 Nasal SARS-CoV-2 (PCR) NOT DETECTED 03/08/22 21:45 - Procedures Procedures: Procedures EXCISION OF RIGHT LOWER LEG SKIN, EXTERNAL APPROACH, DIAGN (04/14/21) ABX Reporting Has patient been on IV antibiotics over the past 48 hours?: Yes
[2022-03-10] MEDS: INSULIN LISPRO 300 UNIT/3 ML PEN SUBQ SCH ×4 (08:53→20:47)
[2022-03-10] MEDS: ATORVASTATIN 40 MG TABLET PO SCH (08:53)
[2022-03-10] MEDS: LOSARTAN 50 MG TABLET PO SCH (08:54)
[2022-03-10] MEDS: ENOXAPARIN 40 MG/0.4 ML SYRINGE SUBQ SCH (08:54)
[2022-03-10 09:04] LABS: BASOPHILS % (AUTO) 0.3 %; EOSINOPHILS # (AUTO) 0.2 10^3/uL (0.0-0.7); EOSINOPHILS % (AUTO) 3.1 %; HCT - HEMATOCRIT 32.6 % (42.0-52.0); HGB - HEMOGLOBIN 10.6 g/dL (14.0-18.0); LYMPHOCYTES # (AUTO) 1.5 10^3/uL (1.5-3.5); LYMPHOCYTES % (AUTO) 22.2 %; MEAN CORPUSCULAR HGB CONC 32.5 g/dL (32.0-36.0); MEAN PLATELET VOLUME 9.8 fL (7.4-11.4); MONOCYTES # (AUTO) 0.6 10^3/uL (0.0-1.0); MONOCYTES % (AUTO) 8.9 %; NEUTROPHILS # (AUTO) 4.4 10^3/uL (1.5-6.6); NEUTROPHILS % (AUTO) 65.1 %; PLT - PLATELET COUNT 164 10^3/uL (130-450); RED BLOOD COUNT 3.79 10^6/uL (4.70-6.10); WHITE BLOOD COUNT 6.8 x10^3/uL (4.8-10.8)
[2022-03-10 09:16] LABS: CALCIUM 8.8 mg/dL (8.5-10.3); CREATININE 0.8 mg/dL (0.6-1.2); POTASSIUM 3.4 mmol/L (3.5-5.0)
[2022-03-10] MEDS: METOPROLOL SUCCINATE 50 MG TABLET PO SCH (10:29)
[2022-03-10] MEDS ORDERED: cloNIDine 0.2 MG PATCH TOP SCH (12:00)
[2022-03-10] MEDS: FUROSEMIDE 40 MG TABLET PO SCH (13:21)
[2022-03-10] MEDS: cefTRIAXone 2 GM in SODIUM CHLORIDE 0.9% MINIBAG 100 ML IV SCH (20:50)
[2022-03-11] MEDS: SODIUM CHLORIDE FLUSH 0.9% 10 ML SYRINGE IVP SCH ×2 (00:17→09:12)
[2022-03-11] MEDS: FUROSEMIDE 40 MG TABLET PO SCH (05:05)
[2022-03-11 05:10] LABS: BASOPHILS % (AUTO) 0.3 %; EOSINOPHILS # (AUTO) 0.1 10^3/uL (0.0-0.7); HGB - HEMOGLOBIN 10.2 g/dL (14.0-18.0); LYMPHOCYTES # (AUTO) 1.4 10^3/uL (1.5-3.5); LYMPHOCYTES % (AUTO) 21.6 %; MEAN CORPUSCULAR HEMOGLOBIN 27.1 pg (27.0-31.0); MEAN CORPUSCULAR HGB CONC 31.9 g/dL (32.0-36.0); MEAN CORPUSCULAR VOLUME 85.1 fL (80.0-94.0); MEAN PLATELET VOLUME 10.5 fL (7.4-11.4); MONOCYTES # (AUTO) 0.5 10^3/uL (0.0-1.0); NEUTROPHILS # (AUTO) 4.5 10^3/uL (1.5-6.6); NEUTROPHILS % (AUTO) 67.8 %; PLT - PLATELET COUNT 165 10^3/uL (130-450); RED BLOOD COUNT 3.76 10^6/uL (4.70-6.10); RED CELL DISTRIBUTION WIDTH 13.6 % (12.0-15.0); WHITE BLOOD COUNT 6.6 x10^3/uL (4.8-10.8)
[2022-03-11 05:14] LABS: CALCIUM 8.3 mg/dL (8.5-10.3); CREATININE 0.8 mg/dL (0.6-1.2); POTASSIUM 3.2 mmol/L (3.5-5.0)
--- NOTE | 2022-03-11 07:29 | DISCHARGE SUMMARY ---
Discharge Summary Admit Date: 03/08/22 Discharge Date: 03/11/22 Discharging Provider: Ye Antoniomaury Code Status: Attempt Resuscitation Condition at Discharge: Stable Discharge Disposition: 01 Home, Self Care - DIAGNOSES Admission Diagnoses: Altered mental status Fever Diabetes mellitus type 2 Chronic edema Morbid obesity with BMI of 45-49.9, adult Discharge Diagnoses with Status of Each Condition: Cellulitis of the right lower extremity.: Acute. Improving. Enterobacter cloacae grew in blood cultures. Patient treated with Rocephin 2 g IV daily for 3 days then switched to Levaquin 500 mg p.o. daily x7 days upon discharge. Altered mental status: Acute. Resolved. Was secondary to cellulitis. Fever: Acute. Resolved. Was secondary to cellulitis. Diabetes mellitus type 2: Chronic. Stable. patient will continue his home medications Chronic edema: Continue lasix and eperlrenone at home Morbid obesity with BMI of 45-49.9, adult - HPI History of Present Illness: This is a 66-year-old white male who lives at home with his . He has a history of morbid obesity (BMI 48), Diabetes mellitus on Metformin and Trulicity, chronic leg edema, and hypertension. He was admitted here in April 2021 for cellulitis with gram neg bacteremia and had presented then with a high fever and altered mental status. The patient is brought in now by his who reports that he became confused today, was driving erratically and also had chills and a fever. She told him to pull worker and when got home checked his legs for cellulitis, found nothing but brought him to the ER due to fever and confusion. Work-up in the ED showed that he has shortness of breath, normal white blood count but a left shift present and chest x-ray that has been read as having atypical infiltrate versus volume overload. He has a temperature of 103.3F in the ED, normal respiratory rate and is not desaturating, and has a normal heart rate and blood pressure. In the ED, blood cultures x2 were drawn and he was given Tylenol, iv Ceftriaxone and iv Zithromax and the Hospitalist team was contacted for further management given his ongoing altered mental status. This patient's PSI score is calculated at III (Intermediate risk). - HOSPITAL COURSE Hospital Course: Patient is 66-year-old male who was admitted on 03/08/2022 with a fever and mild confusion. At the time of admission he had a temperature of 103.3 Fahrenheit. He has chronic lymphedema with hyperkeratotic verrucous plaques on lower extremities. It was noted that the right lower extremity appeared significantly hyperemic. Blood cultures obtained at the time of admission grew Enterobacter cloacae. The patient was started on Rocephin 2 g IV daily. Over the course of his 3-day hospital stay the redness on the right lower extremity steadily improved. He remained afebrile and white blood cell count was normal. Consequently he was discharged with a prescription of Levaquin 500 mg p.o. daily for 7 days. His home medications were resumed at home doses. He may follow-up with his primary care physician as needed. - ALLERGIES Allergies/Adverse Reactions: Allergies Allergy/AdvReac Type Severity Reaction Status Date / Time No Known Drug Allergies Allergy Verified 03/08/22 21:07 - MEDICATIONS Home Medications: Ambulatory Orders Medication Instructions Recorded Confirmed Dulaglutide [Trulicity] 3 mg SQ .WEEKLY 04/13/21 03/09/22 Eplerenone [Inspra] 25 mg PO DAILY 04/13/21 03/09/22 Furosemide [Lasix] 40 mg PO BID 04/13/21 03/09/22 Metoprolol Succinate [Kapspargo 100 mg PO BID 04/13/21 03/09/22 Sprinkle] Rosuvastatin Calcium [Crestor] 20 mg PO HS 04/13/21 03/09/22 cloNIDine 0.2 MG PATCH 1 patch TOP .WEEKLY 04/13/21 03/09/22 [Ieapjqli-Vln-1] metFORMIN [Glucophage] 500 mg PO BID 04/13/21 03/09/22 Aspirin Chewable [[place] 81 mg PO DAILY 03/09/22 03/09/22 Aspirin] Ibuprofen [Motrin] 400 mg PO BID PRN 03/09/22 03/09/22 Lactobacillus Rhamnosus GG 1 cap PO PRN PRN 03/09/22 03/09/22 [Culturelle] Losartan Potassium [Cozaar] 100 mg PO 0800 03/09/22 03/09/22 Losartan [Cozaar] 50 mg PO HS 03/09/22 03/09/22 Multivitamin 1 each PO DAILY 03/09/22 03/09/22 [place]-3/Dha/Epa/Fish Oil [Fish Oil 1 each PO DAILY 03/09/22 03/09/22 1,000 mg Softgel] Potassium Chloride [K-Dur] 20 meq PO 0700,2000 03/09/22 03/09/22 Potassium Chloride [K-Dur] 40 meq PO 1200 03/09/22 03/09/22 Turmeric 400 mg PO DAILY 03/09/22 03/09/22 Ubidecarenone [Co Q-10] 100 mg PO DAILY 03/09/22 03/09/22 levoFLOXacin [Levaquin] 500 mg PO QD 7 Days #14 tablet 03/11/22 - PHYSICAL EXAM AT DISCHARGE General Appearance: positive: No acute distress, Alert Eyes Bilateral: positive: PERRL, EOMI ENT: positive: No signs of dehydration Neck: positive: No JVD, Trachea midline Respiratory: positive: Chest non-tender, No respiratory distress, Breath sounds nml. negative: Wheezes, Rales, Rhonchi Cardiovascular: positive: Regular rate & rhythm Abdomen: positive: Non-tender, No organomegaly, Nml bowel sounds, No distention. negative: Guarding, Rebound Skin: positive: Other (Hyperkeratotic verrucous changes on lower extremities bilaterally. Right lower extremity hyperemic and warm significantly improved. Wound on lateral RLE) Extremities: positive: Pedal edema, Other (Hyperkeratotic verrucous changes on lower extremities bilaterally. Right lower extremity hyperemic and warm significantly improved. Wound on lateral RLE) Neurologic/Psychiatric: positive: Oriented x3, Mood/affect nml - LABS Result Diagrams: 03/11/22 04:25 03/11/22 04:25 - SEPSIS Possible source of Sepsis: Skin/soft tissue Sepsis Associated Organ Dysfunction: Enterobacter cloacoa - TIME SPENT Time Spent in Discharge (Minutes): 20
--- NOTE | 2022-03-11 07:29 | Discharge Plan ---
Discharge Plan Problem Reviewed?: Yes Disposition: Home, Self Care Condition: Stable Prescriptions: levoFLOXacin [Levaquin] 500 mg PO QD 7 Days #14 tablet Diet: Low Sodium Activity Restrictions: Activity as Tolerated Assistance Devices: Cane Weight Bearing: Full Weight Health Concerns: Patient is 66-year-old male who was admitted on 03/08/2022 with a fever and mild confusion. At the time of admission he had a temperature of 103.3 Fahrenheit. He has chronic lymphedema with hyperkeratotic verrucous plaques on lower extremities. It was noted that the right lower extremity appeared significantly hyperemic. Blood cultures obtained at the time of admission grew Enterobacter cloacae. The patient was started on Rocephin 2 g IV daily. Over the course of his 3-day hospital stay the redness on the right lower extremity steadily improved. He remained afebrile and white blood cell count was normal. Consequently he was discharged with a prescription of Levaquin 500 mg p.o. daily for 7 days. His home medications were resumed at home doses. He may follow-up with his primary care physician as needed. No Smoking: If you smoke, Please STOP! Call for help.
[2022-03-11] MEDS ORDERED: POTASSIUM CHLORIDE 20 MEQ TABLET PO ONE (08:00)
[2022-03-11] MEDS ORDERED: ASPIRIN CHEW 81 MG TABLET PO SCH (09:00)
[2022-03-11] MEDS: INSULIN LISPRO 300 UNIT/3 ML PEN SUBQ SCH ×2 (09:11→12:12)
[2022-03-11] MEDS: LOSARTAN 50 MG TABLET PO SCH (09:11)
[2022-03-11] MEDS: METOPROLOL SUCCINATE 50 MG TABLET PO SCH (09:11)
[2022-03-11] MEDS: ATORVASTATIN 40 MG TABLET PO SCH (09:12)
[2022-03-11] MEDS: ENOXAPARIN 40 MG/0.4 ML SYRINGE SUBQ SCH (09:16)
[2022-03-11 13:11] VITALS: BP 118/69
== END 2022-03-11 13:12 | disposition home or self-care (01) | DRG 603 ==
LOC: ED 20:55 → MS2 23:24 → OBSVTOIN 03-09 12:48
PROVIDERS: ADMIT Internal Medicine; ATTEND Internal Medicine
DX: A41.9 Sepsis, unspecified organism (principal); J18.9 Pneumonia, unspecified organism; L03.115 Cellulitis of right lower limb; Z68.42 Body mass index [BMI] 45.0-49.9, adult; S81.801A Unspecified open wound, right lower leg, initial encounter; X58.XXXA Exposure to other specified factors, initial encounter; Z20.822 Contact with and (suspected) exposure to COVID-19; L85.9 Epidermal thickening, unspecified; E11.9 Type 2 diabetes mellitus without complications; E66.01 Morbid (severe) obesity due to excess calories; I10 Essential (primary) hypertension; E78.00 Pure hypercholesterolemia, unspecified; G47.30 Sleep apnea, unspecified; M19.90 Unspecified osteoarthritis, unspecified site; M21.619 Bunion of unspecified foot; R60.0 Localized edema; Z79.82 Long term (current) use of aspirin; Z79.84 Long term (current) use of oral hypoglycemic drugs; Z79.899 Other long term (current) drug therapy; Z82.49 Family history of ischemic heart disease and other diseases of the circulatory system; Z83.3 Family history of diabetes mellitus; Z90.49 Acquired absence of other specified parts of digestive tract
CPT/HCPCS: 36415; 71045; 80048; 80053; 81001; 83036; 83605; 83735; 83880; 84100; 84484; 85025; 86140; 87040; 87070; 87077; 87150; 87181; 87205; 87633; 96361; 96365; 96366; 96368; 96372; 99284; 99285; A9270; J1650; 87086

== ENCOUNTER 2022-08-17 11:01 | Outpatient (CLI) | payer MEDICARE, OTHER ==
[2022-08-17 18:05] LABS: BASOPHILS % (AUTO) 0.5 %; EOSINOPHILS # (AUTO) 0.2 10^3/uL (0.0-0.7); EOSINOPHILS % (AUTO) 3.6 %; HCT - HEMATOCRIT 43.3 % (42.0-52.0); HGB - HEMOGLOBIN 12.8 g/dL (14.0-18.0); LYMPHOCYTES % (AUTO) 33.7 %; MEAN CORPUSCULAR HEMOGLOBIN 26.3 pg (27.0-31.0); MEAN CORPUSCULAR HGB CONC 29.6 g/dL (32.0-36.0); MEAN CORPUSCULAR VOLUME 89.1 fL (80.0-94.0); MEAN PLATELET VOLUME 10.9 fL (7.4-11.4); MONOCYTES # (AUTO) 0.6 10^3/uL (0.0-1.0); MONOCYTES % (AUTO) 9.3 %; NEUTROPHILS # (AUTO) 3.1 10^3/uL (1.5-6.6); NEUTROPHILS % (AUTO) 52.7 %; PLT - PLATELET COUNT 216 10^3/uL (130-450); RED BLOOD COUNT 4.86 10^6/uL (4.70-6.10); RED CELL DISTRIBUTION WIDTH 14.3 % (12.0-15.0); WHITE BLOOD COUNT 5.9 x10^3/uL (4.8-10.8)
[2022-08-17 18:10] LABS: CREATININE,URINE 26.1 mg/dL; MICROALBUM/CREATININE RATIO,UR 7.7 ug/mg (<30.0); MICROALBUMIN,URINE 0.2 mg/dL (0-300.0)
[2022-08-17 18:11] LABS: ALBUMIN/GLOBULIN RATIO 1.1 (1.0-2.2); ALKALINE PHOSPHATASE 68 IU/L (42-121); ALT ALANINE AMINOTRANSFERASE 21 IU/L (10-60); AST ASPARTATE AMINOTRANSFERASE 24 IU/L (10-42); BILIRUBIN,TOTAL 0.8 mg/dL (0.2-1.0); BUN - BLOOD UREA NITROGEN 14 mg/dL (6-20); CALCIUM 9.1 mg/dL (8.5-10.3); CARBON DIOXIDE - CO2 32 mmol/L (21-32); CHLORIDE 104 mmol/L (101-111); CHOL/HDL RATIO 2.6 (<5.0); CHOLESTEROL 94 mg/dL; GFR - MDRD 75 (>89); GLUCOSE 92 mg/dL (70-100); HDL CHOLESTEROL 36 mg/dL; LDL CHOLESTEROL,CALCULATED 36 mg/dL; POTASSIUM 4.2 mmol/L (3.5-5.0); SODIUM 143 mmol/L (135-145); TOTAL PROTEIN 7.7 g/dL (6.7-8.2); TRIGLYCERIDES 110 mg/dL; VLDL CHOLESTEROL 22 mg/dL
[2022-08-17 19:43] LABS: ESTIMATED AVERAGE GLUCOSE 117 mg/dL (70-100); HEMOGLOBIN A1c% 5.7 % (4.27-6.07)
== END 2022-08-17 11:02 | disposition home or self-care (01) ==
LOC: LAB.N 11:01
PROVIDERS: ATTEND Internal Medicine
DX: E11.628 Type 2 diabetes mellitus with other skin complications (principal); E78.5 Hyperlipidemia, unspecified; G47.33 Obstructive sleep apnea (adult) (pediatric)
CPT/HCPCS: 36415; 80053; 80061; 82043; 82570; 83036; 83721; 85025

== ENCOUNTER 2022-09-05 14:07 | Outpatient (CLI) | payer MEDICARE, OTHER ==
--- NOTE | 2022-09-06 10:01 | XRAY Report ---
PROCEDURE: Foot 3 View RT INDICATIONS: FOOT PAIN TECHNIQUE: Three views of the foot were acquired. COMPARISON: None. FINDINGS: Bones: Severe hammertoe deformities at every digit. Moderate hallux valgus with moderate subluxation of the 1st MTP joint and moderate osteophytic changes. Moderate subluxation at the 2nd MTP with mode rate degenerative changes. No fractures or dislocations. No suspicious bony lesions. Soft tissues: No tibiotalar joint effusion. Achilles tendon appears normal. IMPRESSION: No acute finding. Degenerative changes with associated subluxations and hammertoe deformities. Reviewed by: Baldev Faith MD on 09/06/2022 9:59 AM PST Approved by: Baldev Faith MD on 09/06/2022 9:59 AM [facility] Station ID: [id number]
== END 2022-09-05 14:08 | disposition home or self-care (01) ==
LOC: DI 14:07
PROVIDERS: ATTEND Internal Medicine
DX: M19.071 Primary osteoarthritis, right ankle and foot (principal); S93.141A Subluxation of metatarsophalangeal joint of right great toe, initial encounter; M20.41 Other hammer toe(s) (acquired), right foot

== ENCOUNTER 2022-10-26 06:22 | Day surgery (SDC) | payer MEDICARE, OTHER ==
[2022-10-26] MEDS ORDERED: LACTATED RINGERS 1,000 ML IV ONE (06:58)
[2022-10-26] MEDS ORDERED: PROPOFOL 500 MG/50 ML 500 MG/50 ML VIAL ONE (07:08)
--- NOTE | 2022-10-26 07:13 | ANESTHESIA ---
Pre-Anesthesia VS, & Labs - Diagnosis screening - Procedure colonoscopy Vital Signs: Temp Pulse Resp BP Pulse Ox O2 Flow Rate 35.9 C L 55 L 16 150/83 H 98 10/26/22 06:30 10/26/22 06:30 10/26/22 06:30 10/26/22 06:30 10/26/22 06:30 Height: 6 ft 1 in Weight (kg): 168.5 kg Body Mass Index: 49.0 BMI Classification: Morbidly Obese - NPO Other (prep as directed) - Lab Results Current Lab Results: Laboratory Tests 10/26/22 06:52: POC Whole Bld Glucose 86 Home Medications and Allergies Home Medications: Ambulatory Orders Docusate Sodium 100Mg Capsule [Colace 100Mg Capsule] 100 mg PO BID 10/22/22 metOLazone [Metolazone] 5 mg PO DAILY 10/22/22 Dulaglutide [Trulicity] 4.5 mg SQ .WEEKLY 04/13/21 Eplerenone [Inspra] 25 mg PO DAILY 04/13/21 Furosemide [Lasix] 40 mg PO BID 04/13/21 Metoprolol Succinate [Kapspargo Sprinkle] 100 mg PO BID 04/13/21 Rosuvastatin Calcium [Crestor] 20 mg PO HS 04/13/21 cloNIDine 0.2 MG PATCH [Zwpeiftw-Tmg-3] 1 patch TOP .WEEKLY 04/13/21 metFORMIN [Glucophage] 500 mg PO BID 04/13/21 Aspirin Chewable [St [place] Aspirin] 81 mg PO DAILY 03/09/22 Ibuprofen [Motrin] 400 mg PO BID PRN 03/09/22 Losartan [Cozaar] 100 mg PO BID 03/09/22 Multivitamin 1 each PO DAILY 03/09/22 [place]-3/Dha/Epa/Fish Oil [Fish Oil 1,000 mg Softgel] 1 each PO DAILY 03/09/22 Potassium Chloride [K-Dur] 20 meq PO 5XD 03/09/22 Turmeric 400 mg PO DAILY 03/09/22 Ubidecarenone [Co Q-10] 200 mg PO DAILY 03/09/22 Amitriptyline [Elavil] 25 mg PO HS 09/05/22 Docusate Sodium 100Mg Capsule [Colace 100Mg Capsule] 100 mg PO BID 10/22/22 metOLazone [Metolazone] 5 mg PO DAILY 10/22/22 Allergies/Adverse Reactions: Allergies Allergy/AdvReac Type Severity Reaction Status Date / Time No Known Drug Allergies Allergy Verified 03/08/22 21:07 Anes History & Medical History - Anesthetic History Anesthesia Complications: reports: No previous complications - Medical History Cardiovascular: reports: Hypertension, High cholesterol Pulmonary: reports: Sleep apnea Gastrointestinal: reports: None, Chronic constipation Urinary: reports: Other Neuro: reports: None Musculoskeletal: reports: Osteoarthritis Endocrine/Autoimmune: reports: Type 2 diabetes Skin: reports: Other Smoking Status: Never smoker - Surgical History General: reports: Appendectomy, Colonoscopy, Other Eyes Ears Nose Throat (EENT): reports: Cataracts, Detached retina repair, Tonsil/Adenoidectomy Orthopedic: reports: Other Exam General: Alert Dental: WNL, Dentures full Upper Mouth Opening: Greater than 4 Fingerbreadths Neck Mobility: Normal Mallampati classification: II Thyromental Distance: greater than 6 cm Respiratory: Lungs clear Cardiovascular: Regular rate Plan Anesthesia Type: Total IV Consent for Procedure(s) Verified and Reviewed: Yes Code Status: Attempt Resuscitation ASA classification: 3-Severe systemic disease Is this case an emergency?: No
[2022-10-26] MEDS ORDERED: LACTATED RINGERS 300 ML IV ONE (08:17)
--- NOTE | 2022-10-26 08:32 | ANESTHESIA POST OP EVALUATION ---
Anesthesia Post Eval - Post Anesthesia Eval Vitals: Last Vital Signs Temp 36.2 C L 10/26/22 08:17 Pulse 55 L 10/26/22 08:25 Resp 18 10/26/22 08:25 BP 127/70 10/26/22 08:25 Pulse Ox 100 10/26/22 08:25 O2 Flow Rate CV Function Including HR & BP: Stable Pain Control: Satisfactory Nausea & Vomiting: Negative Mental Status: Baseline Respiratory Status: Airway Patent Hydration Status: Satisfactory Anesthesia Complications: None
[2022-10-26] MEDS ORDERED: iohexoL-300 100 ML VIAL ONE (08:57)
--- NOTE | 2022-10-26 09:48 | CT Report ---
PROCEDURE: ABDOMEN/PELVIS WO INDICATIONS: incomplete colonoscopy TECHNIQUE: Noncontrast 5 mm thick sections acquired from the diaphragms to the symphysis. 5 mm coronal and sagi ttal reformats were then performed. For radiation dose reduction, the following was used: automated exposure control, adjustment of mA and/or kV according to patient size. Oral contrast instilled in t he colon. COMPARISON: CT abdomen and pelvis without contrast 04/13/2021. FINDINGS: Image quality: Fair. Artifact from patient's body against the side of the gantry. ABDOMEN: Lung bases: Left lung base atelectasis. Heart size is normal. Mild coronary artery calcifications. Solid organs: Liver and spleen are normal in size. Gallbladder is distended. No calcified gallstone s. Pancreas is normal in contours. No adrenal nodules. Kidneys are normal in size, without hydrone phrosis or nephrolithiasis. Left renal cysts are similar in size. Peritoneum and bowel: Oral contrast throughout the colon. A focal narrowing and thickening of the col on at the inferior descending colon, (3/55). This measures 2.5 cm in length. No significant upstream dilatation. There is suboptimal opacification of the most distal cecum. The appendix is not dilated. No small bowel obstruction. No ascites. No pneumoperitoneum. Nodes and vessels: No retroperitoneal or mesenteric adenopathy by size criteria. Aorta and inferior vena cava are normal in caliber. Miscellaneous: No ventral hernias. Prior midline abdominal wall hernia repair with mesh. PELVIS: Genitourinary: Bladder wall thickness is normal. Miscellaneous: Suspect bilateral fat-containing inguinal hernias. No adenopathy. Bones: No suspicious bony lesions. Advanced DDD. No vertebral body compression fractures. IMPRESSION: 1. Focal narrowing and thickening at the descending colon. This could represent colon cancer. Recomme nd clinical correlation and correlation with colonoscopy. 2. No adenopathy identified. No free fluid. Reviewed by: Chris Brumfield MD on 10/26/2022 9:47 AM PDT Approved by: Chris Brumfield MD on 10/26/2022 9:47 AM PDT Station ID: [id number]
[2022-10-26 09:54] VITALS: BP 139/76
[2022-10-26] MEDS ORDERED: PROPOFOL 200 MG/20 ML VIAL IVP ONE (10:20)
== END 2022-10-26 06:23 | disposition home or self-care (01) ==
LOC: SDS 06:22
PROVIDERS: ATTEND Surgery
DX: Z12.11 Encounter for screening for malignant neoplasm of colon (principal); K59.09 Other constipation; G47.33 Obstructive sleep apnea (adult) (pediatric); I10 Essential (primary) hypertension; E66.01 Morbid (severe) obesity due to excess calories; E11.42 Type 2 diabetes mellitus with diabetic polyneuropathy; Z68.43 Body mass index [BMI] 50.0-59.9, adult; Z79.82 Long term (current) use of aspirin; Z79.84 Long term (current) use of oral hypoglycemic drugs; Z79.899 Other long term (current) drug therapy
CPT/HCPCS: 74176; G0121; J7120

== ENCOUNTER 2022-11-16 14:55 | Outpatient (CLI) | payer MEDICARE, OTHER ==
--- NOTE | 2022-11-16 16:53 | XRAY Report ---
PROCEDURE: Knee 2 View BILAT INDICATIONS: KNEE ARTHRALGIA,ANKLE JOINT PAIN TECHNIQUE: 2 views of the bilateral knee(s) were acquired. COMPARISON: None. FINDINGS: Bones: No fractures or dislocations. No suspicious bony lesions. The right knee demonstrates juana re bilateral tricompartmental narrowing. The left knee also demonstrates severe tricompartmental narr owing although less severe compared to the left. There is significantly more severe medial compartmen t narrowing on the left. Particular osteophytes are present bilaterally. Soft tissues: No effusion. No suspicious soft tissue calcifications or masses. IMPRESSION: Tricompartmental arthritic change severe bilaterally with the most severe demonstrating the medial co mpartment of left knee. Reviewed by: Kelly Alvarez MD on 11/16/2022 4:52 PM PDT Approved by: Kelly Alvarez MD on 11/16/2022 4:52 PM PDT Station ID: [id number]
--- NOTE | 2022-11-16 18:13 | XRAY Report ---
PROCEDURE: Ankle 3 View BILAT INDICATIONS: KNEE ARTHALGIA, ANKLE JOINT PAIN TECHNIQUE: 3 views of each ankle were acquired. COMPARISON: X-ray right foot, 09/05/2022. X-ray left foot, 08/10/2015 and 02/16/2015. FINDINGS: Right: No acute fractures or dislocations. There is abnormal alignment with decreased calcaneal inc lination angle and collapse of the longitudinal arch. Severe intertarsal and tarsometatarsal joint de generation with associated fragmentation productive bone formation compatible with neuropathic arthro julian. No tibiotalar joint effusion. Achilles tendon appears normal. Left: No acute fractures or dislocations. There is abnormal alignment with decreased calcaneal incl ination angle and collapse of the longitudinal arch. Severe intertarsal and tarsometatarsal joint deg eneration with associated fragmentation and productive bone formation, compatible with neuropathic ar thropathy. No tibiotalar joint effusion. Achilles tendon appears normal. Diffuse soft tissue swelli ng. IMPRESSION: The radiographic findings are compatible with severe bilateral neuropathic arthropathy. Reviewed by: Kevin Ochoa MD on 11/16/2022 6:12 PM PDT Approved by: Kevin Ochoa MD on 11/16/2022 6:12 PM PDT Station ID: [id number]
== END 2022-11-16 14:56 | disposition home or self-care (01) ==
LOC: DI 14:55
PROVIDERS: ATTEND Internal Medicine
DX: M25.572 Pain in left ankle and joints of left foot (principal); M25.571 Pain in right ankle and joints of right foot; M17.0 Bilateral primary osteoarthritis of knee

== ENCOUNTER 2023-02-07 11:27 | Outpatient (CLI) | payer MEDICARE, OTHER ==
[2023-02-07 18:08] LABS: CALCIUM 9.1 mg/dL (8.5-10.3); CREATININE 1.1 mg/dL (0.6-1.2); POTASSIUM 3.6 mmol/L (3.5-5.0)
[2023-02-07 20:21] LABS: ESTIMATED AVERAGE GLUCOSE 120 mg/dL (70-100); HEMOGLOBIN A1c% 5.8 % (4.27-6.07)
== END 2023-02-07 11:28 | disposition home or self-care (01) ==
LOC: LAB.N 11:27
PROVIDERS: ATTEND Internal Medicine
DX: E11.42 Type 2 diabetes mellitus with diabetic polyneuropathy (principal)
CPT/HCPCS: 36415; 80048; 83036

== ENCOUNTER 2023-06-28 13:08 | Emergency (ER) | payer MEDICARE, OTHER ==
--- NOTE | 2023-06-28 13:35 | ED Physician Documentation ---
PD HPI URI - Stated complaint Stated Complaint: CONGESTION,COUGH,SOA - Chief complaint Chief Complaint: Resp - History obtained from History obtained from: Patient - History of Present Illness Timing - onset: How many weeks ago (1) Timing duration: Weeks (1) Timing details: Gradual onset, Still present Associated symptoms: Fever, Ear pain (fullness with decreased hearing.), Nasal congestion, Productive cough (with feeling of congestion right chest mainly.), Dyspnea. No: Hemoptysis, Chest pain, NVD Contributing factors: No: Immunocompromised, COPD / asthma Recently seen: Not recently seen Review of Systems Constitutional: reports: Fever, Chills Ears: reports: Ear pain. denies: Drainage/discharge Nose: reports: Congestion. denies: Rhinorrhea / runny nose Throat: denies: Sore throat Cardiac: denies: Chest pain / pressure Respiratory: reports: Dyspnea, Cough, Wheezing GI: denies: Vomiting, Diarrhea PD PAST MEDICAL HISTORY - Past Medical History Cardiovascular: Hypertension, High cholesterol Respiratory: Sleep apnea Neuro: None Endocrine/Autoimmune: Type 2 diabetes GI: None, Chronic constipation : Other Musculoskeletal: Osteoarthritis Derm: Other - Past Surgical History Past Surgical History: Yes General: Appendectomy, Colonoscopy, Other Ortho: Other HEENT: Cataracts, Detached retina repair, Tonsil/Adenoidectomy - Present Medications Home Medications: Ambulatory Orders Medication Instructions Recorded Confirmed Dulaglutide [Trulicity] 4.5 mg SQ .WEEKLY 04/13/21 11/07/22 Eplerenone [Inspra] 25 mg PO DAILY 04/13/21 11/07/22 Furosemide [Lasix] 40 mg PO BID 04/13/21 11/07/22 Metoprolol Succinate [Kapspargo 100 mg PO BID 04/13/21 11/07/22 Sprinkle] Rosuvastatin Calcium [Crestor] 20 mg PO HS 04/13/21 11/07/22 cloNIDine 0.2 MG PATCH 1 patch TOP .WEEKLY 04/13/21 11/07/22 [Fybvropy-Zbk-1] metFORMIN [Glucophage] 500 mg PO BID 04/13/21 11/07/22 Aspirin Chewable [St Joel 81 mg PO DAILY 03/09/22 11/07/22 Aspirin] Ibuprofen [Motrin] 400 mg PO BID PRN 03/09/22 11/07/22 Losartan [Cozaar] 100 mg PO BID 03/09/22 11/07/22 Multivitamin 1 each PO DAILY 03/09/22 11/07/22 Sharps-3/Dha/Epa/Fish Oil [Fish Oil 1 each PO DAILY 03/09/22 11/07/22 1,000 mg Softgel] Potassium Chloride [K-Dur] 20 meq PO 5XD 03/09/22 11/07/22 Turmeric 400 mg PO DAILY 03/09/22 11/07/22 Ubidecarenone [Co Q-10] 200 mg PO DAILY 03/09/22 11/07/22 Docusate Sodium 100Mg Capsule 100 mg PO DAILY 10/22/22 11/07/22 [Colace 100Mg Capsule] metOLazone [Metolazone] 5 mg PO PRN PRN 10/22/22 11/07/22 Albuterol Sulf [Ventolin Hfa 2 - 3 puffs INH QID #1 each 06/28/23 Inhaler] Amoxicillin 500 mg PO TID #18 cap 06/28/23 Benzonatate [Tessalon] 100 mg PO TID PRN #15 cap 06/28/23 dexAMETHasone [Decadron] 4 mg PO DAILY #5 tablet 06/28/23 - Allergies Allergies/Adverse Reactions: Allergies Allergy/AdvReac Type Severity Reaction Status Date / Time No Known Drug Allergies Allergy Verified 03/08/22 21:07 - Social History Does the pt smoke?: No Smoking Status: Never smoker Does the pt drink ETOH?: No - Immunizations Immunizations are current?: No Immunizations: TDAP >10years/unknown - POLST Patient has POLST: No POLST Status: Full Code PD ED PE NORMAL - Vitals Vital signs reviewed: Yes - General General: Alert and oriented X 3, No acute distress, Well developed/nourished - HEENT HEENT: Ears normal, Pharynx benign - Neck Neck: Supple, no meningeal sign, No adenopathy - Cardiac Cardiac: RRR, No murmur - Respiratory Respiratory: No respiratory distress. No: Clear bilaterally (no coarse sounds. Some central exp wheezing noted. ) Results - Vitals Vitals: Oxygen O2 Source Room air - Labs Labs: Laboratory Tests 06/28/23 13:30 Nasal Adenovirus (PCR) NOT DETECTED Nasal B. parapertussis DNA (PCR) NOT DETECTED Nasal Coronavir 229E PCR NOT DETECTED Nasal Coronavir HKU1 PCR NOT DETECTED Nasal Coronavir NL63 PCR NOT DETECTED Nasal Coronavir OC43 PCR NOT DETECTED Nasal Enterovir/Rhinovir PCR NOT DETECTED Nasal Influenza B PCR NOT DETECTED Nasal Influenza A PCR NOT DETECTED Nasal Parainfluen 1 PCR NOT DETECTED Nasal Parainfluen 2 PCR NOT DETECTED Nasal Parainfluen 3 PCR NOT DETECTED Nasal Parainfluen 4 PCR NOT DETECTED Nasal RSV (PCR) NOT DETECTED Nasal B.pertussis DNA PCR NOT DETECTED Nasal C.pneumoniae (PCR) NOT DETECTED Foreign Human Metapneumo PCR NOT DETECTED Nasal M.pneumoniae (PCR) NOT DETECTED Nasal SARS-CoV-2 (PCR) NOT DETECTED - Rads (name of study) chest xray Relevant Findings:: Prelim report reviewed, EMP independent interpretation of test (no acute cardiopulmonary findings. ) PD Medical Decision Making - ED course Complexity details: considered differential (has persistent cough now productive with feeling of wheezing and tightness with breathing and cough. Noc hest pain. CXR is without pneumonia. Persistent and productive cough concerning for bacterial component to bronchitis. Viral panel negative so not confirmed viral portion. Can give MDI, abx, and ), d/w patient Departure - Departure Disposition: 01 Home, Self Care Clinical Impression: Acute bronchitis, Wheezing Condition: Stable Record reviewed to determine appropriate education?: Yes Instructions: ED URI Viral W Wheezing Follow-Up: Lucian Hurley MD [Primary Care Provider] - Prescriptions: Amoxicillin 500 mg PO TID #18 cap dexAMETHasone [Decadron] 4 mg PO DAILY #5 tablet Benzonatate [Tessalon] 100 mg PO TID PRN #15 cap PRN Reason: Cough Albuterol Sulf [Ventolin Hfa Inhaler] 2 - 3 puffs INH QID #1 each Comments: Your chest x-ray is clear without any signs of pneumonia. Your respiratory viral panel is negative for the most common viral type illnesses. Even though your symptoms are most likely related to a of viral illness with wheezing, the concern would be a bacterial infection instead and since its not currently showing a viral illness, I would be inclined to add some antibiotics for concern of the bacterial component. In addition to help with your wheezing cough and breathing, I would suggest a combination of albuterol inhaler 2 to 3 puffs 4 times daily regularly for the next week or 2 in combination with Decadron steroid anti-inflammatory for bronchial inflammation. Also benzonatate if needed for cough. I sent your prescriptions to the [facility] pharmacy. I would anticipate improvement over the next several days and resolution over 3 to 5 days or so. Recheck if worsening symptoms overall. Forms: PCP List Discharge Date/Time: 06/28/23 15:36
[2023-06-28] MEDS ORDERED: ALBUTEROL 1 PUFF INH STA (14:42)
[2023-06-28] MEDS ORDERED: BENZONATATE 100 MG CAPSULE PO STA (14:42)
[2023-06-28] MEDS ORDERED: dexAMETHasone 4 MG TABLET PO STA (14:42)
[2023-06-28 14:49] LABS: B. PARAPERTUSSIS- RESP PCR PAN NOT DETECTED; B. PERTUSSIS- RESP PCR PANEL NOT DETECTED; C. PNEUMONIAE- RESP PCR PANEL NOT DETECTED; CORONAVIRUS 229E-RESP PCR NOT DETECTED; CORONAVIRUS HKU1-RESP PCR NOT DETECTED; CORONAVIRUS NL63-RESP PCR NOT DETECTED; CORONAVIRUS OC43-RESP PCR NOT DETECTED; HUMAN METAPNEUMOVIRUS NOT DETECTED; INFLUENZA A- RESP PCR PANEL NOT DETECTED; INFLUENZA B - RESP PCR PANEL NOT DETECTED; M. PNEUMONIAE- RESP PCR PANEL NOT DETECTED; PARAINFLUENZA VIRUS 1 NOT DETECTED; PARAINFLUENZA VIRUS 2 NOT DETECTED; PARAINFLUENZA VIRUS 3 NOT DETECTED; PARAINFLUENZA VIRUS 4 NOT DETECTED; RHINOVIRUS/ENTEROVIRUS NOT DETECTED; RSV- RESP PCR PANEL NOT DETECTED; SARS-CoV-2 -RESP PCR PANEL NOT DETECTED
[2023-06-28] MEDS ORDERED: AMOXICILLIN 250 MG CAPSULE PO STA (15:18)
--- NOTE | 2023-06-28 15:18 | XRAY Report ---
PROCEDURE: Chest 1 View X-Ray INDICATIONS: cough and congestion TECHNIQUE: One view of the chest was acquired. COMPARISON: None FINDINGS: Surgical changes and devices: None. Lungs and pleura: No pleural effusions or pneumothorax. Lungs are clear. Mediastinum: Mediastinal contours appear normal. Heart size is normal. Bones and chest wall: No suspicious bony lesions. Overlying soft tissues appear unremarkable. IMPRESSION: No acute cardiopulmonary findings Reviewed by: Geovanni Vargas MD on 06/28/2023 2:17 PM [place] Approved by: Geovanni Vargas MD on 06/28/2023 2:17 PM AKST Station ID: [id number]
[2023-06-28 15:46] VITALS: BP 128/64; O2SAT 98
== END 2023-06-28 15:36 | disposition home or self-care (01) ==
LOC: ED 13:08
DX: J20.9 Acute bronchitis, unspecified (principal); I10 Essential (primary) hypertension; E11.9 Type 2 diabetes mellitus without complications; Z79.85 Long-term (current) use of injectable non-insulin antidiabetic drugs; Z20.822 Contact with and (suspected) exposure to COVID-19
CPT/HCPCS: 71045; 87633; 94640; 99284; A9270; J8540

== ENCOUNTER 2023-08-14 09:38 | Outpatient (CLI) | payer MEDICARE, OTHER ==
[2023-08-14 12:38] LABS: BASOPHILS % (AUTO) 0.4 %; EOSINOPHILS # (AUTO) 0.2 10^3/uL (0.0-0.7); EOSINOPHILS % (AUTO) 3.9 %; HCT - HEMATOCRIT 42.3 % (42.0-52.0); HGB - HEMOGLOBIN 12.8 g/dL (14.0-18.0); LYMPHOCYTES # (AUTO) 2.1 10^3/uL (1.5-3.5); LYMPHOCYTES % (AUTO) 37.5 %; MEAN CORPUSCULAR HEMOGLOBIN 26.4 pg (27.0-31.0); MEAN CORPUSCULAR HGB CONC 30.3 g/dL (32.0-36.0); MEAN CORPUSCULAR VOLUME 87.4 fL (80.0-94.0); MEAN PLATELET VOLUME 10.7 fL (7.4-11.4); MONOCYTES # (AUTO) 0.6 10^3/uL (0.0-1.0); MONOCYTES % (AUTO) 11.2 %; NEUTROPHILS # (AUTO) 2.6 10^3/uL (1.5-6.6); NEUTROPHILS % (AUTO) 46.8 %; PLT - PLATELET COUNT 209 10^3/uL (130-450); RED BLOOD COUNT 4.84 10^6/uL (4.70-6.10); RED CELL DISTRIBUTION WIDTH 14.4 % (12.0-15.0); WHITE BLOOD COUNT 5.6 x10^3/uL (4.8-10.8)
[2023-08-14 13:22] LABS: ALBUMIN 4.1 g/dL (3.2-5.5); ALBUMIN/GLOBULIN RATIO 1.4 (1.0-2.2); ALKALINE PHOSPHATASE 61 IU/L (42-121); ALT ALANINE AMINOTRANSFERASE 16 IU/L (10-60); AST ASPARTATE AMINOTRANSFERASE 19 IU/L (10-42); BILIRUBIN,TOTAL 0.5 mg/dL (0.2-1.0); BUN - BLOOD UREA NITROGEN 13 mg/dL (6-20); CALCIUM 9.2 mg/dL (8.5-10.3); CARBON DIOXIDE - CO2 30 mmol/L (21-32); CHLORIDE 105 mmol/L (101-111); CHOLESTEROL 112 mg/dL; CREATININE 0.9 mg/dL (0.6-1.3); GFR - MDRD 84 (>89); GLUCOSE 87 mg/dL (74-104); HDL CHOLESTEROL 37 mg/dL; LDL CHOLESTEROL,CALCULATED 41 mg/dL; LDL/HDL RATIO 1.1 (<3.6); POTASSIUM 4.1 mmol/L (3.5-4.5); SODIUM 142 mmol/L (135-145); TOTAL PROTEIN 7.1 g/dL (6.4-8.9); TRIGLYCERIDES 172 mg/dL (48-352); VLDL CHOLESTEROL 34 mg/dL
[2023-08-14 17:41] LABS: ESTIMATED AVERAGE GLUCOSE 123 mg/dL (70-100); HEMOGLOBIN A1c% 5.9 % (4.27-6.07)
== END 2023-08-14 09:39 | disposition home or self-care (01) ==
LOC: LAB.N 09:38
PROVIDERS: ATTEND Internal Medicine
DX: I10 Essential (primary) hypertension (principal); E78.5 Hyperlipidemia, unspecified; E11.42 Type 2 diabetes mellitus with diabetic polyneuropathy
CPT/HCPCS: 36415; 80053; 80061; 83036; 83721; 85025

== ENCOUNTER 2023-12-16 13:55 | Outpatient (CLI) | payer MEDICARE, OTHER ==
[2023-12-16 17:59] LABS: CALCIUM 9.6 mg/dL (8.5-10.3); POTASSIUM 3.3 mmol/L (3.5-4.5)
[2023-12-16 18:53] LABS: ESTIMATED AVERAGE GLUCOSE 123 mg/dL (70-100); HEMOGLOBIN A1c% 5.9 % (4.27-6.07)
== END 2023-12-16 13:56 | disposition home or self-care (01) ==
LOC: LAB.N 13:55
PROVIDERS: ATTEND Internal Medicine
DX: E11.42 Type 2 diabetes mellitus with diabetic polyneuropathy (principal)
CPT/HCPCS: 36415; 80048; 83036

== ENCOUNTER 2024-04-16 13:02 | Outpatient (CLI) | payer MEDICARE, OTHER ==
[2024-04-16 19:24] LABS: CALCIUM 9.3 mg/dL (8.5-10.3); CREATININE 0.8 mg/dL (0.6-1.3); POTASSIUM 4.1 mmol/L (3.5-4.5)
== END 2024-04-16 13:03 | disposition home or self-care (01) ==
LOC: LAB.N 13:02
PROVIDERS: ATTEND Internal Medicine
DX: I10 Essential (primary) hypertension (principal)
CPT/HCPCS: 36415; 80048